=== PATIENT | female | born 1990 ===

== ENCOUNTER 2017-06-06 11:04 | Inpatient (IN) | payer OTHER ==
[2017-06-06 11:05] VITALS: BMI 17.5
--- NOTE | 2017-06-06 11:45 | C.PDOC ---
History Of Present Illness 26 yr old female referred to ER by Dr. Blackwell for new onset of fever for the past 2 days. Patient reports history Hodgkins Lymphoma, currently receiving treatment. Also reports of non productive cough. Denies chest pain, SOB, nausea , vomiting, weakness or numbness. REFERRED DR James BLACKWELL FOR NEW ONSET FEVER X 2 DAYS. HO HODGKINS LYMPHOMA, CURRENTLY RECEIVING TREATMENT. 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 NO OTHER ASSOC SX. EXAM CACHECTIC, MILD TOX. HEENT ANICTERIC ABD NEG LUNGS CTA B/L NO W/R/R CV RRR SINUS TACH REMAINDER NEG Time Seen by Provider: 06/06/17 11:29 Chief Complaint (Nursing): Medical Clearance History Per: Patient History/Exam Limitations: no limitations Onset/Duration Of Symptoms: Days (2) Current Symptoms Are (Timing): Still Present Sick Contacts (Context): None Past Medical History Reviewed: Historical Data, Nursing Documentation, Vital Signs Vital Signs: Last Vital Signs Temp 102.2 F H 06/06/17 12:40 Pulse 93 H 06/06/17 12:41 Resp 35 H 06/06/17 12:41 BP 88/54 L 06/06/17 12:41 Pulse Ox 99 06/06/17 13:25 - Medical History PMH: Asthma - [facility] Procedures DRAINAGE OF R PLEURAL CAV WITH DRAIN DEV, PERC APPROACH (05/06/17) EXCISION OF AORTIC LYMPHATIC, PERCUTANEOUS APPROACH, DIAGN (05/06/17) EXCISION OF RIGHT UPPER LOBE BRONCHUS, ENDO, DIAGN (05/06/17) INSERTION OF ENDOTRACHEAL AIRWAY INTO TRACHEA, VIA OPENING (05/06/17) RESPIRATORY VENTILATION, GREATER THAN 96 CONSECUTIVE HOURS (05/06/17) Family History: States: No Known Family Hx - Social History Hx Alcohol Use: No Hx Substance Use: No Review Of Systems Except As Marked, All Systems Reviewed And Found Negative. Constitutional: Positive for: Fever (Subjective) Cardiovascular: Negative for: Chest Pain Respiratory: Positive for: Cough (Non productive). Negative for: Shortness of Breath Gastrointestinal: Negative for: Nausea, Vomiting Neurological: Negative for: Weakness, Numbness Physical Exam - Physical Exam Appears: Toxic (Mild), Other ((+) C) Skin: Warm, Dry, No Rash Head: Atraumatic, Normacephalic Chest: Symmetrical, No Tenderness Cardiovascular: Rhythm Regular, No Murmur Respiratory: Normal Breath Sounds, No Rales, No Rhonchi, No Stridor, No Wheezing Gastrointestinal/Abdominal: Normal Exam, Soft, No Tenderness, No Guarding, No Rebound Extremity: Normal ROM, No Swelling Neurological/Psych: Oriented x3, Normal Speech, Normal Motor ED Course And Treatment - Laboratory Results Result Diagrams: 06/06/17 13:04 ECG: Interpreted By Me, Viewed By Me ECG Rhythm: Sinus Tachycardia Interpretation Of ECG: Nonspecific T wave changes. Rate From EC (BPM ) O2 Sat by Pulse Oximetry: 99 (RA) Pulse Ox Interpretation: Normal Progress - Re-Evaluation Re-evaluation Note: 1255 - Patient states she is usually hypotensive in high 80s, low 90s. 06/06/17 13:18 D/W DR James BLACKWELL: SP RECENT SALVAGE CHEMO TREATMENT DUE TO RECUR HODGKINS. 2UPRBS. , 1 BAG PLT. 06/06/17 13:24 D/W DR DICK WILL ADMIT - Data Reviewed Data Reviewed: Lab, Diagnostic imaging, EKG, Old records - Critical Care Citical Care: Excluding Proc Time Critical Care Time: 120 minutes - Continuity of Care Discussed patient case with:: Covering for PMD Medical Decision Making Medical Decision Making: PLAN: * CXR * EKG * VBG * CBC * CMP * Influenza * HCG * Urinalysis * Tylenol PO * Vancomycin IV * Zoysn IV * Sodium Chloride IV Disposition Counseled Patient/Family Regarding: Studies Performed, Diagnosis - Disposition Disposition: HOSPITALIZED Disposition Time: 13:24 Condition: STABLE Forms: [facility] ([place]se) - Clinical Impression Clinical Impression: Neutropenic fever, Symptomatic anemia - Scribe Statement The provider has reviewed the documentation as recorded by the Didier Escobar Provider Attestation: All medical record entries made by the Didier were at my direction and personally dictated by me. I have reviewed the chart and agree that the record accurately reflects my personal performance of the history, physical exam, medical decision making, and the department course for this patient. I have also personally directed, reviewed, and agree with the discharge instructions and disposition. Decision To Admit - Pt Status Changed To: Hospital Disposition Of: Inpatient - Admit Certification Admit to Inpatient:: After my assessment, the patient will require hospitalization for at least two midnights. This is because of the severity of symptoms shown, intensity of services needed, and/or the medical risk in this patient being treated as an outpatient. - InPatient: Physician Admission Certification:: SEE NOTE - . Bed Request Type: Telemetry Admitting Physician: Kong Dick Patient Diagnosis: Neutropenic fever, Symptomatic anemia
[2017-06-06] MEDS ORDERED: Piperacillin/Tazobact 3.375 gm 100 ML IV STA (11:47)
[2017-06-06] MEDS ORDERED: Vancomycin 1 GM 1 GM/250 ML BAG IV ONE (12:00)
[2017-06-06] MEDS ORDERED: Piperacillin/Tazobact 3.375 gm 100 ML IVPB ONE (12:20)
[2017-06-06] MEDS ORDERED: Vancomycin 1 GM 1 GM/250 ML BAG IVPB ONE (12:20)
[2017-06-06 13:10] LABS: BASO % 0.3 % (0.0-2.0); EOS % 0.2 % (0.0-4.0); HEMATOCRIT 19.6 % (34.0-47.0); LYMPH # 0.2 K/uL (1.0-4.3); LYMPH % 21.5 % (20.0-40.0); MEAN CELL VOLUME 73.1 fL (81.0-99.0); MEAN CORPUSCULAR HEMOGLOBIN 24.3 pg (27.0-31.0); MEAN CORPUSCULAR HGB CONC 33.2 g/dL (33.0-37.0); MEAN PLATELET VOLUME 12.4 fL (7.2-11.7); MONO # 0.4 K/uL (0.0-0.8); MONO % 46.1 % (0.0-10.0); NRBC % 0.2 % (0.0-2.0); RED CELL DISTRIBUTION WIDTH 20.2 % (11.5-14.5)
[2017-06-06 13:12] LABS: RBC URINE 3 /hpf (0-3); URINE BACTERIA RARE (<OCC); URINE BILIRUBIN NEGATIVE (NEGATIVE); URINE BLOOD 1+ (NEGATIVE); URINE COLOR Yellow (YELLOW); URINE GLUCOSE (UA) NORMAL (Normal); URINE KETONE NEGATIVE (NEGATIVE); URINE LEUKOCYTE ESTERASE NEG Leu/uL (Negative); URINE PROTEIN 2+ mg/dL (NEGATIVE); WBC URINE 3 /hpf (0-5)
[2017-06-06 13:14] LABS: WHITE BLOOD COUNT 0.8 K/uL (4.8-10.8)
[2017-06-06 13:26] LABS: INR 1.6
[2017-06-06 13:37] LABS: CHLORIDE 92 mmol/L (98-107); SODIUM 131 mmol/L (132-148)
[2017-06-06 13:38] LABS: POTASSIUM 3.3 mmol/L (3.6-5.2)
[2017-06-06 13:39] LABS: CARBON DIOXIDE 23 mmol/L (22-30); GFR AFRICAN-AMERICAN > 60
[2017-06-06 13:40] LABS: ALKALINE PHOSPHATASE 76 U/L (38-126); ALT/SGPT 49 U/L (9-52); AST/SGOT 29 U/L (14-36); BILIRUBIN,TOTAL 0.7 mg/dL (0.2-1.3); BLOOD UREA NITROGEN 7 mg/dL (7-17); CALCIUM 8.9 mg/dl (8.6-10.4); GLUCOSE,RANDOM 93 mg/dL (65-105); TOTAL PROTEIN 6.9 g/dL (6.3-8.3)
[2017-06-06 13:41] LABS: MAGNESIUM 1.4 mg/dL (1.6-2.3)
[2017-06-06 14:58] LABS: VENOUS BLOOD GAS PCO2 40 mmHg (40-60)
[2017-06-06] MEDS ORDERED: Sodium Chloride 0.9% 1,000 ML IV ONE (15:18)
[2017-06-06] MEDS ORDERED: Iohexol 300 100 ML IJ ONE (16:40)
[2017-06-06] MEDS ORDERED: Albuterol HFA 90 mcg/actuation (8 g) INH PRN (16:50)
[2017-06-06] MEDS ORDERED: Sodium Chloride 0.9% 500 ML IV ONE (17:07)
[2017-06-06] MEDS ORDERED: Potassium Chloride 20 mEq/15 ml LIQ UD PO ONE (17:09)
--- NOTE | 2017-06-06 17:23 | CP.PCM.HP ---
<Gerardo Holder - Last Filed: 06/06/17 18:08> History of Present Illness - History of Present Illness History of Present Illness: PGY-1 H&P for Dr. Richter CC: Fever This is a 26 year old female with PMHx Hodgkin's Lymphoma, asthma who presented complaining of fevers for the past 2 days. Patient denied any recent chills, chest pain, wheezing, abdominal pain, nausea, vomiting, constipation, diarrhea, dysuria. Patient stated that she was completely asymptomatic except for the fever. Patient does state though that she is short of breath once intermittently , and within the past hour she has started experiencing a dry cough. Patient denies rhinorrhea, post nasal drip. Patient does complain of sore throat from repeated prior intubation and extubations. Patient denies any feelings of weakness and states that she does ambulate intermittently. Per family, patient is otherwise eating well with much improved appetite from before. PMHx: Hodgkin's Lymphoma PSHx: Right sided chest Port placement at [facility] Allergies: NKDA Social: Denies tobacco, alcohol, drugs. Lives with extended family. [facility]: [facility] Heme/Onc: Dr. Blackwell Present on Admission - Present on Admission Any Indicators Present on Admission: No Review of Systems - Constitutional Constitutional: Fever. absent: Chills - EENT Eyes: absent: Change in Vision Ears: absent: Ear Pain Nose/Mouth/Throat: Sore Throat (attributes to prior intubations and extubations) . absent: Nasal Congestion, Post Nasal Drip - Cardiovascular Cardiovascular: absent: Chest Pain - Respiratory Respiratory: Cough (dry), Dyspnea (intermittent). absent: Wheezing - Gastrointestinal Gastrointestinal: absent: Abdominal Pain, Constipation, Diarrhea, Nausea, Vomiting - Genitourinary Genitourinary: absent: Dysuria - Musculoskeletal Musculoskeletal: absent: Back Pain - Integumentary Integumentary: absent: Rash - Neurological Neurological: absent: Dizziness, Numbness, Tingling, Weakness - Psychiatric Psychiatric: absent: Change in Appetite - Endocrine Endocrine: absent: Palpitations Past Patient History - Past Medical History & Family History Past Medical History?: Yes - Past Social History Smoking Status: Never Smoked - CARDIAC Hx Cardiac Disorders: No - PULMONARY Hx Asthma: Yes - NEUROLOGICAL Hx Neurological Disorder: No - HEENT Hx HEENT Problems: No - RENAL Hx Chronic Kidney Disease: No - ENDOCRINE/METABOLIC Hx Endocrine Disorders: No - HEMATOLOGICAL/ONCOLOGICAL Hx Blood Disorders: No - INTEGUMENTARY Hx Dermatological Problems: No - MUSCULOSKELETAL/RHEUMATOLOGICAL Hx Musculoskeletal Disorders: No - GASTROINTESTINAL Hx Gastrointestinal Disorders: No - GENITOURINARY/GYNECOLOGICAL Hx Genitourinary Disorders: No - PSYCHIATRIC Hx Substance Use: No - SURGICAL HISTORY Hx Vascular Access Device: Yes (port a cath) Other/Comment: Hodgkin's Lymphoma - ANESTHESIA Hx Anesthesia: No Meds Allergies/Adverse Reactions: Allergies Allergy/AdvReac Type Severity Reaction Status Date / Time No Known Allergies Allergy Verified 06/06/17 11:32 Physical Exam - Constitutional Appears: No Acute Distress, Cachectic, Chronically Ill - Head Exam Head Exam: ATRAUMATIC, NORMOCEPHALIC Additional comments: small pruritic blister on scalp - Eye Exam Eye Exam: EOMI, PERRL (Left pupil reactive to light, but right pupil non- reactive) Pupil Exam: Mydriatic (right eye) - ENT Exam ENT Exam: Mucous Membranes Dry, Normal External Ear Exam, Normal Oropharynx, TM' s Normal Bilaterally Additional comments: B/l nasal erythema Oropharynx unremarkable for exudates or erythema. - Neck Exam Neck exam: Positive for: Full Rom - Respiratory Exam Respiratory Exam: Decreased Breath Sounds (on left), Rhonchi Additional comments: Coarse breath sounds bilaterally - Cardiovascular Exam Cardiovascular Exam: Tachycardia, +S1, +S2. absent: Diastolic murmur, Systolic Murmur - GI/Abdominal Exam GI & Abdominal Exam: Normal Bowel Sounds, Soft. absent: Distended, Guarding, Tenderness - Back Exam Back exam: absent: CVA tenderness (L), CVA tenderness (R) - Neurological Exam Neurological exam: Alert, CN II-XII Intact, Oriented x3 Additional comments: Muscle strength 5/5 bilaterally in all extremities. No sensory deficits noted. - Psychiatric Exam Psychiatric exam: Normal Affect, Normal Mood - Skin Skin Exam: Dry, Intact, Warm Additional comments: Right sided chest wall port unremarkable in appearance. No sign of rashes. Two peripheral IV lines in place. Results - Vital Signs Recent Vital Signs: Last Vital Signs Temp 98.2 F 06/06/17 16:18 Pulse 117 H 06/06/17 16:18 Resp 38 H 06/06/17 16:18 BP 87/61 L 06/06/17 16:18 Pulse Ox 99 06/06/17 16:18 - Labs Result Diagrams: 06/06/17 13:04 06/06/17 13:15 Labs: Laboratory Results - last 24 hr 06/06/17 06/06/17 06/06/17 11:04 12:56 13:04 WBC 0.8 L* RBC 2.68 L Hgb 6.5 L* Hct 19.6 L MCV 73.1 L MCH 24.3 L MCHC 33.2 RDW 20.2 H Plt Count 13 L* MPV 12.4 H Neut % (Auto) 31.9 L Lymph % (Auto) 21.5 [place] % (Auto) 46.1 H Eos % (Auto) 0.2 Baso % (Auto) 0.3 Neut # 0.3 L Lymph # 0.2 L [place] # 0.4 Eos # 0.0 Baso # 0.0 PT INR APTT pO2 VBG pH VBG pCO2 VBG HCO3 VBG Total CO2 VBG O2 Sat (Calc) VBG Base Excess VBG Potassium Glucose Lactate Sodium Potassium Chloride Carbon Dioxide Anion Gap BUN Creatinine Est GFR ( Amer) Est GFR (Non-Af Amer) Random Glucose Calcium Phosphorus Magnesium Total Bilirubin AST ALT Alkaline Phosphatase Total Protein Albumin Globulin Albumin/Globulin Ratio Venous Blood Potassium Urine Color Yellow Urine Clarity Hazy Urine pH 6.0 Ur Specific [place] 1.016 Urine Protein 2+ H Urine Glucose (UA) Normal Urine Ketones Negative Urine Blood 1+ H Urine Nitrate Negative Urine Bilirubin Negative Urine Urobilinogen 2.0 H Ur Leukocyte Esterase Neg Urine WBC (Auto) 3 Urine RBC (Auto) 3 Ur Squamous Epith Cells 6 H Urine Bacteria Rare Urine HCG, Qual Negative Influenza Typ A,B (EIA) Negative for flu a/b Blood Type Antibody Screen 06/06/17 06/06/17 06/06/17 13:04 13:15 14:01 WBC RBC Hgb Hct MCV MCH MCHC RDW Plt Count MPV Neut % (Auto) Lymph % (Auto) [place] % (Auto) Eos % (Auto) Baso % (Auto) Neut # Lymph # [place] # Eos # Baso # PT 18.2 H INR 1.6 APTT 30 pO2 VBG pH VBG pCO2 VBG HCO3 VBG Total CO2 VBG O2 Sat (Calc) VBG Base Excess VBG Potassium Glucose Lactate Sodium 131 L Potassium 3.3 L Chloride 92 L Carbon Dioxide 23 Anion Gap 19 BUN 7 Creatinine 0.4 L Est GFR ( Amer) > 60 Est GFR (Non-Af Amer) > 60 Random Glucose 93 Calcium 8.9 Phosphorus 3.0 Magnesium 1.4 L Total Bilirubin 0.7 AST 29 ALT 49 Alkaline Phosphatase 76 Total Protein 6.9 Albumin 3.4 L Globulin 3.5 Albumin/Globulin Ratio 1.0 Venous Blood Potassium Urine Color Urine Clarity Urine pH Ur Specific [place] Urine Protein Urine Glucose (UA) Urine Ketones Urine Blood Urine Nitrate Urine Bilirubin Urine Urobilinogen Ur Leukocyte Esterase Urine WBC (Auto) Urine RBC (Auto) Ur Squamous Epith Cells Urine Bacteria Urine HCG, Qual Influenza Typ A,B (EIA) Blood Type AB POSITIVE Antibody Screen Negative 06/06/17 14:29 WBC RBC Hgb Hct MCV MCH MCHC RDW Plt Count MPV Neut % (Auto) Lymph % (Auto) [place] % (Auto) Eos % (Auto) Baso % (Auto) Neut # Lymph # [place] # Eos # Baso # PT INR APTT pO2 24 L VBG pH 7.40 VBG pCO2 40 VBG HCO3 23.4 VBG Total CO2 26.0 VBG O2 Sat (Calc) 43.6 VBG Base Excess 0.0 VBG Potassium 3.0 L Glucose 91 Lactate 1.1 Sodium 132.0 Potassium Chloride 100.0 Carbon Dioxide Anion Gap BUN Creatinine Est GFR ( Amer) Est GFR (Non-Af Amer) Random Glucose Calcium Phosphorus Magnesium Total Bilirubin AST ALT Alkaline Phosphatase Total Protein Albumin Globulin Albumin/Globulin Ratio Venous Blood Potassium 3.0 L Urine Color Urine Clarity Urine pH Ur Specific [place] Urine Protein Urine Glucose (UA) Urine Ketones Urine Blood Urine Nitrate Urine Bilirubin Urine Urobilinogen Ur Leukocyte Esterase Urine WBC (Auto) Urine RBC (Auto) Ur Squamous Epith Cells Urine Bacteria Urine HCG, Qual Influenza Typ A,B (EIA) Blood Type Antibody Screen Assessment & Plan - Assessment and Plan (Free Text) Plan: Neutropenic Fever Dr. Blackwell heme/onc consulted, help appreciated. Dr. Salazar ID consulted, help appreciated. Patient given one dose of Granix in the ED. Tmax 102.2 but was afebrile during encounter. Patient received 1300mL NS bolus in ED. Patient given an additional of 1.5 liters of NS bolus. Maintenance fluids: NS 100cc/hr F/u CTA chest F/u Urine Legionella F/u Mycoplasma F/u rapid flu F/u rapid strep test Patient given Vancomycin and Zosyn in ED. Merrem 1 gm IV Q8H Vancomycin 500 mg IV daily starting tomorrow Anemia Dr. Blackwell heme/onc consulted, help appreciated. Dr. Blackwell put in for 2 units of pRBCs as well as 1 unit of platelets F/u CBC History of Hodgkin's Lymphoma Dr. Blackwell heme/onc consulted, help appreciated. History of Asthma Albuterol Q6 prn dyspnea Mucinex 600 mg PO BID Promethazine with codeine 5 ml PO Q4H prn Dr. Yanely cardoso consulted, help appreciated Prophylactic Measures Contraindication for VTE prophylaxis due to thrombocytopenia AM labs PT/OT for weakness Magnesium and potassium repleted. <Miracle Richter V - Last Filed: 06/06/17 23:40> Results - Vital Signs Recent Vital Signs: Last Vital Signs Temp 98.3 F 06/06/17 23:27 Pulse 121 H 06/06/17 23:27 Resp 20 06/06/17 23:27 BP 95/64 L 06/06/17 23:27 Pulse Ox 96 06/06/17 23:27 - Labs Result Diagrams: 06/06/17 13:04 06/06/17 13:15 Labs: Laboratory Results - last 24 hr 06/06/17 06/06/17 06/06/17 11:04 12:56 13:04 WBC 0.8 L* RBC 2.68 L Hgb 6.5 L* Hct 19.6 L MCV 73.1 L MCH 24.3 L MCHC 33.2 RDW 20.2 H Plt Count 13 L* MPV 12.4 H Neut % (Auto) 31.9 L Lymph % (Auto) 21.5 [place] % (Auto) 46.1 H Eos % (Auto) 0.2 Baso % (Auto) 0.3 Neut # 0.3 L Lymph # 0.2 L [place] # 0.4 Eos # 0.0 Baso # 0.0 PT INR APTT pO2 VBG pH VBG pCO2 VBG HCO3 VBG Total CO2 VBG O2 Sat (Calc) VBG Base Excess VBG Potassium Glucose Lactate Sodium Potassium Chloride Carbon Dioxide Anion Gap BUN Creatinine Est GFR ( Amer) Est GFR (Non-Af Amer) Random Glucose Calcium Phosphorus Magnesium Total Bilirubin AST ALT Alkaline Phosphatase Total Protein Albumin Globulin Albumin/Globulin Ratio Procalcitonin Venous Blood Potassium Urine Color Yellow Urine Clarity Hazy Urine pH 6.0 Ur Specific [place] 1.016 Urine Protein 2+ H Urine Glucose (UA) Normal Urine Ketones Negative Urine Blood 1+ H Urine Nitrate Negative Urine Bilirubin Negative Urine Urobilinogen 2.0 H Ur Leukocyte Esterase Neg Urine WBC (Auto) 3 Urine RBC (Auto) 3 Ur Squamous Epith Cells 6 H Urine Bacteria Rare Urine HCG, Qual Negative Influenza Typ A,B (EIA) Negative for flu a/b Mycoplasma pneumon IgM Grp A Beta Strep Ag Blood Type Antibody Screen 06/06/17 06/06/17 06/06/17 13:04 13:15 14:01 WBC RBC Hgb Hct MCV MCH MCHC RDW Plt Count MPV Neut % (Auto) Lymph % (Auto) [place] % (Auto) Eos % (Auto) Baso % (Auto) Neut # Lymph # [place] # Eos # Baso # PT 18.2 H INR 1.6 APTT 30 pO2 VBG pH VBG pCO2 VBG HCO3 VBG Total CO2 VBG O2 Sat (Calc) VBG Base Excess VBG Potassium Glucose Lactate Sodium 131 L Potassium 3.3 L Chloride 92 L Carbon Dioxide 23 Anion Gap 19 BUN 7 Creatinine 0.4 L Est GFR ( Amer) > 60 Est GFR (Non-Af Amer) > 60 Random Glucose 93 Calcium 8.9 Phosphorus 3.0 Magnesium 1.4 L Total Bilirubin 0.7 AST 29 ALT 49 Alkaline Phosphatase 76 Total Protein 6.9 Albumin 3.4 L Globulin 3.5 Albumin/Globulin Ratio 1.0 Procalcitonin Venous Blood Potassium Urine Color Urine Clarity Urine pH Ur Specific [place] Urine Protein Urine Glucose (UA) Urine Ketones Urine Blood Urine Nitrate Urine Bilirubin Urine Urobilinogen Ur Leukocyte Esterase Urine WBC (Auto) Urine RBC (Auto) Ur Squamous Epith Cells Urine Bacteria Urine HCG, Qual Influenza Typ A,B (EIA) Mycoplasma pneumon IgM Grp A Beta Strep Ag Blood Type AB POSITIVE Antibody Screen Negative 06/06/17 06/06/17 06/06/17 14:29 16:28 17:39 WBC RBC Hgb Hct MCV MCH MCHC RDW Plt Count MPV Neut % (Auto) Lymph % (Auto) [place] % (Auto) Eos % (Auto) Baso % (Auto) Neut # Lymph # [place] # Eos # Baso # PT INR APTT pO2 24 L VBG pH 7.40 VBG pCO2 40 VBG HCO3 23.4 VBG Total CO2 26.0 VBG O2 Sat (Calc) 43.6 VBG Base Excess 0.0 VBG Potassium 3.0 L Glucose 91 Lactate 1.1 Sodium 132.0 Potassium Chloride 100.0 Carbon Dioxide Anion Gap BUN Creatinine Est GFR ( Amer) Est GFR (Non-Af Amer) Random Glucose Calcium Phosphorus Magnesium Total Bilirubin AST ALT Alkaline Phosphatase Total Protein Albumin Globulin Albumin/Globulin Ratio Procalcitonin 3.33 H Venous Blood Potassium 3.0 L Urine Color Urine Clarity Urine pH Ur Specific [place] Urine Protein Urine Glucose (UA) Urine Ketones Urine Blood Urine Nitrate Urine Bilirubin Urine Urobilinogen Ur Leukocyte Esterase Urine WBC (Auto) Urine RBC (Auto) Ur Squamous Epith Cells Urine Bacteria Urine HCG, Qual Influenza Typ A,B (EIA) Mycoplasma pneumon IgM Negative Grp A Beta Strep Ag Blood Type Antibody Screen 06/06/17 17:47 WBC RBC Hgb Hct MCV MCH MCHC RDW Plt Count MPV Neut % (Auto) Lymph % (Auto) [place] % (Auto) Eos % (Auto) Baso % (Auto) Neut # Lymph # [place] # Eos # Baso # PT INR APTT pO2 VBG pH VBG pCO2 VBG HCO3 VBG Total CO2 VBG O2 Sat (Calc) VBG Base Excess VBG Potassium Glucose Lactate Sodium Potassium Chloride Carbon Dioxide Anion Gap BUN Creatinine Est GFR ( Amer) Est GFR (Non-Af Amer) Random Glucose Calcium Phosphorus Magnesium Total Bilirubin AST ALT Alkaline Phosphatase Total Protein Albumin Globulin Albumin/Globulin Ratio Procalcitonin Venous Blood Potassium Urine Color Urine Clarity Urine pH Ur Specific [place] Urine Protein Urine Glucose (UA) Urine Ketones Urine Blood Urine Nitrate Urine Bilirubin Urine Urobilinogen Ur Leukocyte Esterase Urine WBC (Auto) Urine RBC (Auto) Ur Squamous Epith Cells Urine Bacteria Urine HCG, Qual Influenza Typ A,B (EIA) Mycoplasma pneumon IgM Grp A Beta Strep Ag Negative Blood Type Antibody Screen Attending/Attestation - Attestation I have personally seen and examined this patient.: Yes I have fully participated in the care of the patient.: Yes I have reviewed all pertinent clinical information: Yes
[2017-06-06] MEDS ORDERED: Potassium Chloride 20 mEq/15 ml LIQ UD ONE (18:26)
[2017-06-06] MEDS ORDERED: Magnesium Sulfate 1 gm in D5W 1 GM/100 ML BAG IVPB ONE ×2 (18:26→19:38)
[2017-06-06] MEDS: Sodium Chloride 0.9% 1,000 ML IV SCH (18:38)
[2017-06-06] MEDS: Magnesium Sulfate 1 gm in D5W 1 GM/100 ML BAG IVPB SCH ×2 (18:43→19:39)
--- NOTE | 2017-06-06 18:48 | RAD ---
HISTORY: FEVER HO HODGKINS LYMPHOMA COMPARISON: Chest x-ray performed 05/28/17 TECHNIQUE: Chest, one view. FINDINGS: LUNGS: Right-sided MediPort extends expected location of the cavoatrial junction. Examination limited by patient obliquity. Patchy opacity seen adjacent to the MediPort hub, possibly atelectasis or consolidation ; nodule cannot be excluded. Right hilar/perihilar opacity may also reflect infiltrate. Mild left basilar atelectasis. Please note that chest x-ray has limited sensitivity for the detection of pulmonary masses. PLEURA: Blunting of the bilateral costophrenic angles may reflect tiny pleural effusions. No definite pneumothorax . CARDIOVASCULAR: Mild cardiomegaly. OSSEOUS STRUCTURES: No acute osseous abnormality identified. VISUALIZED UPPER ABDOMEN: Unremarkable. OTHER FINDINGS: None. IMPRESSION: Right-sided MediPort extends expected location of the cavoatrial junction. Patchy opacity seen adjacent to the MediPort hub, possibly atelectasis or consolidation ; nodule cannot be excluded. Right hilar/perihilar opacity may also reflect infiltrate. Mild left basilar atelectasis. Probable bilateral tiny pleural effusions. Mild cardiomegaly.
[2017-06-06] MEDS: guaiFENesin 600 mg ER Tab PO SCH (18:53)
[2017-06-06] MEDS: Meropenem 1 GM in Sodium Chloride 0.9% 100 ML IVPB SCH (18:53)
[2017-06-06] MEDS ORDERED: Vancomycin 1 gm/NS 200 ml 1 GM/200 ML BAG IVPB SCH (19:00)
--- NOTE | 2017-06-06 20:50 | CP.PCM.CON ---
History of Present Illness - History of Present Illness History of Present Illness: CC: Fever This is a 26 year old female with PMHx Hodgkin's Lymphoma, asthma came to ED with fever for 4 days. pt went to see oncologist and she was sent home Patient does state though that she is short of breath once intermittently, and within the past hour she has started experiencing a dry cough. Patient denies rhinorrhea, post nasal drip. Patient does complain of sore throat from repeated prior intubation and extubations. Patient denies any feelings of weakness and states that she does ambulate intermittently. Per family, patient is otherwise eating well with much improved appetite from before. cough with clear mucous noted fever and chills pt has husky voice no abd pain no diarrhea no vomiting PMHx: Hodgkin's Lymphoma PSHx: Right sided chest Port placement at [facility] Allergies: NKDA Social: Denies tobacco, alcohol, drugs. Lives with extended family. PMD: [facility] Heme/Onc: Dr. Blackwell ROM: noted not in distress o/e: chest good air entry, wheezing noted to rt lung regular hs abd soft labs noted henderson cytopenia CXR- left lung base infitrase possible agree with antibiotic CT chest oncology f/u Past Patient History - Past Medical History & Family History Past Medical History?: Yes - Past Social History Smoking Status: Never Smoked - CARDIAC Hx Cardiac Disorders: No - PULMONARY Hx Asthma: Yes - NEUROLOGICAL Hx Neurological Disorder: No - HEENT Hx HEENT Problems: No - RENAL Hx Chronic Kidney Disease: No - ENDOCRINE/METABOLIC Hx Endocrine Disorders: No - HEMATOLOGICAL/ONCOLOGICAL Hx Blood Disorders: No - INTEGUMENTARY Hx Dermatological Problems: No - MUSCULOSKELETAL/RHEUMATOLOGICAL Hx Musculoskeletal Disorders: No - GASTROINTESTINAL Hx Gastrointestinal Disorders: No - GENITOURINARY/GYNECOLOGICAL Hx Genitourinary Disorders: No - PSYCHIATRIC Hx Substance Use: No - SURGICAL HISTORY Hx Vascular Access Device: Yes (port a cath) Other/Comment: Hodgkin's Lymphoma - ANESTHESIA Hx Anesthesia: No Meds Allergies/Adverse Reactions: Allergies Allergy/AdvReac Type Severity Reaction Status Date / Time No Known Allergies Allergy Verified 06/06/17 11:32 - Medications Medications: Current Medications Acetaminophen (Tylenol 325mg Tab) 975 mg PO ONCE PRN PRN Reason: Fever >100.4 F Last Admin: 06/06/17 12:40 Dose: 975 mg Albuterol (Ventolin Hfa 90 Mcg/Actuation (8 G)) 1 puff INH RQ6 PRN PRN Reason: Shortness of Breath Guaifenesin (Mucinex La) 600 mg PO BID [facility] Last Admin: 06/06/17 18:53 Dose: 600 mg Sodium Chloride (Sodium Chloride 0.9%) 1,000 mls @ 100 mls/hr IV .Q10H [facility] Last Admin: 06/06/17 18:38 Dose: 100 mls/hr Meropenem 1 gm/ Sodium (Chloride) 100 mls @ 100 mls/hr IVPB Q8H [facility] Last Admin: 06/06/17 18:53 Dose: 100 mls/hr Vancomycin/Sodium Chloride (Vancocin) 1 gm in 200 mls @ 66.667 mls/hr IVPB Q12H [facility] Stop: 06/12/17 01:01 Promethazine HCl/Codeine (Phenergan/Codeine Oral Syrup) 5 ml PO Q4 PRN PRN Reason: Cough Results - Vital Signs Recent Vital Signs: Last Vital Signs Temp 98.2 F 06/06/17 20:17 Pulse 107 H 06/06/17 20:17 Resp 30 H 06/06/17 20:17 BP 93/64 L 06/06/17 20:17 Pulse Ox 100 06/06/17 20:17 - Labs Result Diagrams: 06/06/17 13:04 06/06/17 13:15 Labs: Laboratory Results - last 24 hr 06/06/17 06/06/17 06/06/17 11:04 12:56 13:04 WBC 0.8 L* RBC 2.68 L Hgb 6.5 L* Hct 19.6 L MCV 73.1 L MCH 24.3 L MCHC 33.2 RDW 20.2 H Plt Count 13 L* MPV 12.4 H Neut % (Auto) 31.9 L Lymph % (Auto) 21.5 Harney % (Auto) 46.1 H Eos % (Auto) 0.2 Baso % (Auto) 0.3 Neut # 0.3 L Lymph # 0.2 L Harney # 0.4 Eos # 0.0 Baso # 0.0 PT INR APTT pO2 VBG pH VBG pCO2 VBG HCO3 VBG Total CO2 VBG O2 Sat (Calc) VBG Base Excess VBG Potassium Glucose Lactate Sodium Potassium Chloride Carbon Dioxide Anion Gap BUN Creatinine Est GFR ( Amer) Est GFR (Non-Af Amer) Random Glucose Calcium Phosphorus Magnesium Total Bilirubin AST ALT Alkaline Phosphatase Total Protein Albumin Globulin Albumin/Globulin Ratio Procalcitonin Venous Blood Potassium Urine Color Yellow Urine Clarity Hazy Urine pH 6.0 Ur Specific [place]on 1.016 Urine Protein 2+ H Urine Glucose (UA) Normal Urine Ketones Negative Urine Blood 1+ H Urine Nitrate Negative Urine Bilirubin Negative Urine Urobilinogen 2.0 H Ur Leukocyte Esterase Neg Urine WBC (Auto) 3 Urine RBC (Auto) 3 Ur Squamous Epith Cells 6 H Urine Bacteria Rare Urine HCG, Qual Negative Influenza Typ A,B (EIA) Negative for flu a/b Mycoplasma pneumon IgM Grp A Beta Strep Ag Blood Type Antibody Screen 06/06/17 06/06/17 06/06/17 13:04 13:15 14:01 WBC RBC Hgb Hct MCV MCH MCHC RDW Plt Count MPV Neut % (Auto) Lymph % (Auto) Harney % (Auto) Eos % (Auto) Baso % (Auto) Neut # Lymph # Harney # Eos # Baso # PT 18.2 H INR 1.6 APTT 30 pO2 VBG pH VBG pCO2 VBG HCO3 VBG Total CO2 VBG O2 Sat (Calc) VBG Base Excess VBG Potassium Glucose Lactate Sodium 131 L Potassium 3.3 L Chloride 92 L Carbon Dioxide 23 Anion Gap 19 BUN 7 Creatinine 0.4 L Est GFR ( Amer) > 60 Est GFR (Non-Af Amer) > 60 Random Glucose 93 Calcium 8.9 Phosphorus 3.0 Magnesium 1.4 L Total Bilirubin 0.7 AST 29 ALT 49 Alkaline Phosphatase 76 Total Protein 6.9 Albumin 3.4 L Globulin 3.5 Albumin/Globulin Ratio 1.0 Procalcitonin Venous Blood Potassium Urine Color Urine Clarity Urine pH Ur Specific [place] Urine Protein Urine Glucose (UA) Urine Ketones Urine Blood Urine Nitrate Urine Bilirubin Urine Urobilinogen Ur Leukocyte Esterase Urine WBC (Auto) Urine RBC (Auto) Ur Squamous Epith Cells Urine Bacteria Urine HCG, Qual Influenza Typ A,B (EIA) Mycoplasma pneumon IgM Grp A Beta Strep Ag Blood Type AB POSITIVE Antibody Screen Negative 06/06/17 06/06/17 06/06/17 14:29 16:28 17:39 WBC RBC Hgb Hct MCV MCH MCHC RDW Plt Count MPV Neut % (Auto) Lymph % (Auto) Harney % (Auto) Eos % (Auto) Baso % (Auto) Neut # Lymph # Harney # Eos # Baso # PT INR APTT pO2 24 L VBG pH 7.40 VBG pCO2 40 VBG HCO3 23.4 VBG Total CO2 26.0 VBG O2 Sat (Calc) 43.6 VBG Base Excess 0.0 VBG Potassium 3.0 L Glucose 91 Lactate 1.1 Sodium 132.0 Potassium Chloride 100.0 Carbon Dioxide Anion Gap BUN Creatinine Est GFR ( Amer) Est GFR (Non-Af Amer) Random Glucose Calcium Phosphorus Magnesium Total Bilirubin AST ALT Alkaline Phosphatase Total Protein Albumin Globulin Albumin/Globulin Ratio Procalcitonin 3.33 H Venous Blood Potassium 3.0 L Urine Color Urine Clarity Urine pH Ur Specific [place] Urine Protein Urine Glucose (UA) Urine Ketones Urine Blood Urine Nitrate Urine Bilirubin Urine Urobilinogen Ur Leukocyte Esterase Urine WBC (Auto) Urine RBC (Auto) Ur Squamous Epith Cells Urine Bacteria Urine HCG, Qual Influenza Typ A,B (EIA) Mycoplasma pneumon IgM Negative Grp A Beta Strep Ag Blood Type Antibody Screen 06/06/17 17:47 WBC RBC Hgb Hct MCV MCH MCHC RDW Plt Count MPV Neut % (Auto) Lymph % (Auto) Harney % (Auto) Eos % (Auto) Baso % (Auto) Neut # Lymph # Harney # Eos # Baso # PT INR APTT pO2 VBG pH VBG pCO2 VBG HCO3 VBG Total CO2 VBG O2 Sat (Calc) VBG Base Excess VBG Potassium Glucose Lactate Sodium Potassium Chloride Carbon Dioxide Anion Gap BUN Creatinine Est GFR ( Amer) Est GFR (Non-Af Amer) Random Glucose Calcium Phosphorus Magnesium Total Bilirubin AST ALT Alkaline Phosphatase Total Protein Albumin Globulin Albumin/Globulin Ratio Procalcitonin Venous Blood Potassium Urine Color Urine Clarity Urine pH Ur Specific [place] Urine Protein Urine Glucose (UA) Urine Ketones Urine Blood Urine Nitrate Urine Bilirubin Urine Urobilinogen Ur Leukocyte Esterase Urine WBC (Auto) Urine RBC (Auto) Ur Squamous Epith Cells Urine Bacteria Urine HCG, Qual Influenza Typ A,B (EIA) Mycoplasma pneumon IgM Grp A Beta Strep Ag Negative Blood Type Antibody Screen
--- NOTE | 2017-06-07 00:02 | CT ---
EXAM: CT Angiography Chest With Intravenous Contrast EXAM DATE/TIME: 06/06/2017 4:14 PM CLINICAL HISTORY: 26 years old, female; Signs and symptoms; Shortness of breath; Additional info: HX of lymphoma. R/O pe. R/O pneumonia TECHNIQUE: Axial computed tomographic angiography images of the chest with intravenous contrast using pulmonary embolism protocol. All CT scans at this facility use one or more dose reduction techniques, viz.: automated exposure control; ma/kV adjustment per patient size (including targeted exams where dose is matched to indication; i.e. head); or iterative reconstruction technique. MIP reconstructed images were created and reviewed. Coronal and sagittal reformatted images were created and reviewed. CONTRAST: 100 mL of visipaque 320 administered intravenously. COMPARISON: Prior CT chest of 05/07/2017 FINDINGS: PULMONARY ARTERIES: Contrast opacification of the pulmonary arteries is adequate, and there are no filling defects seen to suggest pulmonary embolism. AORTA: No evidence of aortic dissection. LUNGS: Compared to the prior study, significant interval improvement in the previously seen dense consolidative process in the right lower lobe. There are persistent areas of dense consolidation in the right upper lobe medially and in the right lower lobe superomedially. Since the prior study, there has been development multiple small, rounded, air-filled areas within these areas of consolidation, suspicious for development of multifocal cavitation. Grossly stable appearance of a large cavitary lesion in the right upper lobe, which measures 7.5 x 5 cm maximally, and contains an air-fluid level. Persistence of of diffuse narrowing of the airways on the right by the masslike soft tissue in the right hilum. Stable appearance of a 1.4 cm nodular density in the left upper lobe medially. Stable appearance of scarring/fibrosis in the right lung laterally. Probable diffuse atelectatic changes in the lungs bilaterally. No evidence of diffuse pulmonary vascular congestion. PLEURAL SPACE: Persistence of a moderate-sized right pleural effusion, which appears partially loculated. This is mildly decreased in size since the prior exam. No pneumothorax is seen. HEART: Moderate amount of fluid is seen in the pericardium, mainly in the superior pericardial recess which does not appear circumferential. Heart appears mildly enlarged. BONES/JOINTS: No acute bony abnormality identified. SOFT TISSUES: No acute abnormality of the visualized soft tissues seen. LYMPH NODES: Grossly stable appearance of extensive, abnormal, masslike infiltrative soft tissue in the mediastinum and in the hilar regions bilaterally, greater on the right, suspicious for diffuse, infiltrative lymphadenopathy. UPPER ABDOMEN: Left diaphragm is moderately elevated. TUBES, LINES AND DEVICES: Right Mediport catheter in place, which terminates in the right atrium. IMPRESSION: - Compared to a prior CT of 05/07/2017, development of multifocal areas of cavitation in the right lung, located in areas of dense consolidation, suspicious for a cavitary pneumonia. Fungal or mycobacterial pneumonia could have this appearance. The overall degree of consolidation in the right lung appears decreased, however. - Otherwise, no obvious new, acute findings. No evidence of pulmonary embolism. - Stable appearance of a large 7 cm cavitary lesion in the right upper lobe. - Grossly stable appearance of extensive, infiltrative soft tissue in the mediastinum and june bilaterally, greater on the right, suspicious for infiltrative lymphadenopathy. This causes narrowing of the airways on the right. - Moderate right pleural effusion, mildly decreased in size. - See above for remaining findings.
[2017-06-07] MEDS: Sodium Chloride 0.9% 1,000 ML IV SCH ×3 (01:30→21:26)
[2017-06-07] MEDS: Meropenem 1 GM in Sodium Chloride 0.9% 100 ML IVPB SCH ×3 (02:11→23:37)
--- NOTE | 2017-06-07 07:43 | CP.PCM.PN ---
<Shanda Waggoner - Last Filed: 06/07/17 11:27> Subjective - Date & Time of Evaluation Date of Evaluation: 06/07/17 Time of Evaluation: 06:00 - Subjective Subjective: Medicine Note for Dr. Richter Patient seen and examined at bedside. Patient reported she does not feel febrile. She reports she feels better. She has been coughing copious amount of saliva and sputum, patient was given suction. She admitted to heart palpitations , sinus tachy 100-120s on telemetry. Denied fever,chills, headache, chest pain, SOB, abdominal pain, n/v/d/c, or urinary symptoms. Objective - Vital Signs/Intake and Output Vital Signs (last 24 hours): Temp Pulse Resp BP Pulse Ox 98.3 F 145 H 20 107/65 95 06/06/17 23:27 06/07/17 05:00 06/07/17 05:00 06/07/17 05:00 06/07/17 05:00 Intake and Output: 06/07/17 06/07/17 06:59 18:59 Intake Total 1000 Balance 1000 - Medications Medications: Current Medications Acetaminophen (Tylenol 325mg Tab) 975 mg PO ONCE PRN PRN Reason: Fever >100.4 F Last Admin: 06/06/17 12:40 Dose: 975 mg Albuterol (Ventolin Hfa 90 Mcg/Actuation (8 G)) 1 puff INH RQ6 PRN PRN Reason: Shortness of Breath Guaifenesin (Mucinex La) 600 mg PO BID [facility] Last Admin: 06/06/17 18:53 Dose: 600 mg Sodium Chloride (Sodium Chloride 0.9%) 1,000 mls @ 100 mls/hr IV .Q10H [facility] Last Admin: 06/07/17 01:30 Dose: Not Given Meropenem 1 gm/ Sodium (Chloride) 100 mls @ 100 mls/hr IVPB Q8H [facility] Last Admin: 06/07/17 02:11 Dose: 100 mls/hr Vancomycin/Sodium Chloride (Vancocin) 1 gm in 200 mls @ 66.667 mls/hr IVPB Q12H [facility] Stop: 06/12/17 01:01 Last Admin: 06/07/17 00:00 Dose: 66.667 mls/hr Promethazine HCl/Codeine (Phenergan/Codeine Oral Syrup) 5 ml PO Q4 PRN PRN Reason: Cough - Labs Labs: 06/06/17 13:04 06/06/17 13:15 PT 18.2 SECONDS (9.7-12.2) H 06/06/17 13:04 INR 1.6 06/06/17 13:04 APTT 30 SECONDS (21-34) 06/06/17 13:04 - Constitutional Appears: Toxic, No Acute Distress, Cachectic, Chronically Ill - Head Exam Head Exam: NORMAL INSPECTION, NORMOCEPHALIC - Eye Exam Eye Exam: EOMI, Normal appearance, PERRL - ENT Exam ENT Exam: Mucous Membranes Dry - Respiratory Exam Respiratory Exam: Decreased Breath Sounds, Rhonchi, Wheezes - Cardiovascular Exam Cardiovascular Exam: Tachycardia - GI/Abdominal Exam GI & Abdominal Exam: Soft, Normal Bowel Sounds. absent: Distended, Tenderness - Extremities Exam Extremities Exam: Normal Inspection. absent: Pedal Edema, Tenderness - Neurological Exam Neurological Exam: Alert, Awake, Oriented x3 - Psychiatric Exam Psychiatric exam: Normal Affect, Normal Mood - Skin Skin Exam: Dry, Intact, Normal Color, Warm Assessment and Plan - Assessment and Plan (Free Text) Plan: Neutropenic Fever Tmax 102.2, currently afebrile Dr. Rishi taylor/onc consulted, help appreciated. Dr. Salazar ID consulted, help appreciated. Patient given one dose of Granix in the ED.Patient received 1300mL NS bolus in ED.Patient given an additional of 1.5 liters of NS bolus. CXR (06/06): Right-sided MediPort extends expected location of the cavoatrial junction.Patchy opacity seen adjacent to the MediPort hub, possibly atelectasis or consolidation ; nodule cannot be excluded. Right hilar/perihilar opacity may also reflect infiltrate. Mild left basilar atelectasis.Probable bilateral tiny pleural effusions. Mild cardiomegaly. CTA chest (06/06): No pulmonary Embolism noted. Compared to a prior CT of 2016, development of multifocal areas of cavitation in the right lung, located in areas of dense consolidation, suspicious for a cavitary pneumonia. Fungal or mycobacterial pneumonia could have this appearance. The overall degree of consolidation in the right lung appears decreased, however. - Otherwise, no obvious new, acute findings. No evidence of pulmonary embolism. - Stable appearance of a large 7 cm cavitary lesion in the right upper lobe. - Grossly stable appearance of extensive, infiltrative soft tissue in the mediastinum and june bilaterally, greater on the right, suspicious for infiltrative lymphadenopathy. This causes narrowing of the airways on the right. - Moderate right pleural effusion, mildly decreased in size. Procal: 3.33 Mycoplasma, rapid flu, rapid strep test - NEGATIVE F/u Urine Legionella Started on: * Maintenance fluids: NS 100cc/hr * Merrem 1 gm IV Q8H * Vancomycin 500 mg IV daily * Tylenol PRN Hx of Hodgkin's Lymphoma with Right Chest Port * Heme-Onc: James Blackwell on the case Previous records from prior admission: * Per heme-onc, need tissue biopsy for re-diagnosis if this is the same cancer, previously diagnosed for 2013-->f/u IR lymph nody biopsy (05/18/17)-->Pathology--> classical Hodgkin's Lymphoma (Discussed with Dr. Welch, pathology) from lymph node biopsy; discussed with ICU and Heme-Onc setup for inpatient chemotherapy-->patient start chemotherapy 05/24 on the ICE Regimen * Patient is currently on ICE Regimen for classical Hodgkin's lymphoma since ; on prophylaxis for tumor lysis; will need outpatient bone marrow transplant evaluation. Completed 1st week of chemotherapy. * Chemotherapy regimen (hand written chemo orders in the chart) * Etoposide 150mg IV X1 (05/24-05/26) * Carboplatin 700mg X1 (05/25) * Ifosfomide 7500mg X1 (05/25) * Mesna 7500mg IV (05/25) Prior documentation: * Per [facility] documentation: untreated Hodgkin lymphoma w new mass on the left side of the neck for advancing Hodgkin lymphoma; Chemo with ABVD in 2014 advised to f/u heme-onc upon discharge; she has diagnosed with hodgkins lymphoma in 02/2014 but had declined any treatment at time of biopsy, but in 2014 had chemo; her prior echo without effusion and normal EF (06/2015) included in the paper documentation * Hodgkin disease, modular sclerosing type stage II (per 02/18/14 note) * Unclear regarding s/p 2014 regarding chemo/onc; patient has 6 month old child ; unclear [phone] regarding management onc; spoke with patient's cousin Ricardo and he was no aware regarding this time frame; and status disrupting chemo? Patient has 6 month Patient's parents are in [place]. She lives with an unspecified cousin. Her male cousin Ricardo Ellis [phone] was present at the time of my cousin and at present is the primary decision maker for patient. He signed a records release form for [facility] and this was placed in the front of patient chart. Documentation from [facility] is in front of the chart. (hx of biopsy, hospitalization in 2014, and prior echo noted). There is no living will nor advance directive included in the documentation per review Cousin Ricardo Ellis has been instructed by my colleague to find out if patient has any medical records at her residence as well as if there is a Living Will/Advance Directive and bring these things in for our review. Anemia * Likely Secondary to anemia of chronic disease HL, chemotherapy * Iron Studies 05/08/17 showed Total Iron low at 20, TIBC normal at 382, and % Sat low at 5 * Patient transfused 1 unit PRBC yesterday, 1 unit PLT. * Today she will receive 2 units PRBCs * Monitor H/H History of Asthma * Albuterol Q6 prn dyspnea * Mucinex 600 mg PO BID * Promethazine with codeine 5 ml PO Q4H prn * Dr. Yanely cardoso consulted, help appreciated Hx of Sinus Tachycardia with Elevated Troponin on Previous admission This admission: * Sinus tachycardia 2/2 anemia * CTA: NO PE Prior admission: * Sample Supervisor Dr. Joya * SVT on 05/28 * Sinus tachycardia * Ordered for repeat echo and chest xray PA and lateral-->negative for acute findings * 2D Echocardiogram (05/07/17): EF: 60-70% systolic (official report available in the chart) * CT Chest: no PE (from 05/09/17) Prophylatic Measures * PT/OT EVAL * Manager Inside referral * Dysphagia diet DW Renny Antony DO, PGY-1 <Miracle Richter V - Last Filed: 07/11/17 14:56> Objective - Vital Signs/Intake and Output Vital Signs (last 24 hours): Temp Pulse Resp BP Pulse Ox 98.3 F 97 H 18 105/65 100 06/14/17 15:00 06/14/17 15:00 06/14/17 15:00 06/14/17 15:00 06/14/17 15:00 - Labs Labs: 06/14/17 06:54 06/14/17 06:54 PT 18.2 SECONDS (9.7-12.2) H 06/06/17 13:04 INR 1.6 06/06/17 13:04 APTT 30 SECONDS (21-34) 06/06/17 13:04 Attending/Attestation - Attestation I have personally seen and examined this patient.: Yes I have fully participated in the care of the patient.: Yes I have reviewed all pertinent clinical information, including history, physical exam and plan: Yes Notes (Text): This is late computer entry for 06/07/17. Patient seen, examined and case discussed with day-time resident. Patient with history of Hodgken's Lymphoma who presents with neutropenic fever, currently on chemotherapy. Patient's procalcitonin elevated, signifying bacterial origin to infection. Patient currently on Meropenem and Vancomycin IV per ID. Repeat CT does not show PE in light of malignancy history, on IV to treat for pneumonia. Per heme-onc, 2 units of PRBC to be transfused today. Completed 1 unit of RBC and 1 unit of Platelets. No additional platelet transfusion per heme-onc. Heme-onc, Infectious disease, and Pulm on board-->help appreciated Assessment/Plan 1) Neutropenic Fever * Tmax 102.2, neutropenic; infection: pneumonia * Dr. James Blackwell heme/onc consulted, help appreciated. * Dr. Salazar ID consulted, help appreciated. * In the Ed, given one dose of GranixPatient received 1300mL NS bolus in ED. Patient given an additional of 1.5 liters of NS bolus. * CXR (06/06): Right-sided MediPort extends expected location of the cavoatrial junction.Patchy opacity seen adjacent to the MediPort hub, possibly atelectasis or consolidation ; nodule cannot be excluded. Right hilar/perihilar opacity may also reflect infiltrate. Mild left basilar atelectasis.Probable bilateral tiny pleural effusions. Mild cardiomegaly. * CTA chest (06/06): No pulmonary Embolism noted. Compared to a prior CT of 2016, development of multifocal areas of cavitation in the right lung, located in areas of dense consolidation, suspicious for a cavitary pneumonia. Fungal or mycobacterial pneumonia could have this appearance. The overall degree of consolidation in the right lung appears decreased, however. - Otherwise, no obvious new, acute findings. No evidence of pulmonary embolism. - Stable appearance of a large 7 cm cavitary lesion in the right upper lobe. - Grossly stable appearance of extensive, infiltrative soft tissue in the mediastinum and june bilaterally, greater on the right, suspicious for infiltrative lymphadenopathy. This causes narrowing of the airways on the right. - Moderate right pleural effusion, mildly decreased in size. * Procal: 3.33 * Mycoplasma, rapid flu, rapid strep test - NEGATIVE * F/u Urine Legionella * Started on: * Maintenance fluids: NS 100cc/hr * Merrem 1 gm IV Q8H * Vancomycin 500 mg IV daily * Tylenol PRN 2) Hx of Hodgkin's Lymphoma with Right Chest Port * Heme-Onc: James Blackwell on the case Previous records from prior admission: * Per heme-onc, bx from last admission confirms classical Hodgkin's Lymphoma from lymph node biopsy * Patient was started on ICE regimen chemotherapy per heme-onc last admission, on prophylaxis for tumor lysis. Will need outpatient bone marrow transplant evaluation. * ICE Regimen: * Chemotherapy regimen (hand written chemo orders in the chart) * Etoposide 150mg IV X1 (05/24-05/26) * Carboplatin 700mg X1 (05/25) * Ifosfomide 7500mg X1 (05/25) * Mesna 7500mg IV (05/25) 3) Anemia of Chronic Disease * Likely Secondary to anemia of chronic disease HL (Hodgkin's lymphoma), hx of chemotherapy * Iron Studies 05/08/17 showed Total Iron low at 20, TIBC normal at 382, and % Sat low at 5 * Patient transfused 1 unit PRBC yesterday, 1 unit PLT. * Today she will receive 2 units PRBCs today * Monitor H/H 4) History of Asthma * Albuterol Q6 prn dyspnea * Mucinex 600 mg PO BID * Promethazine with codeine 5 ml PO Q4H prn * Dr. Yanely cardoso consulted, help appreciated 5) Hx of Sinus Tachycardia * multifactorial etiology: anemia, malignancy and infection * Rule out pulmonary embolism * No pneumothorax noted on repeat CT scan; CT scan ruled out PE * 2D Echocardiogram (05/07/17): EF: 60-70% systolic (official report available in the chart) 6) Prophylactic Measures * PT/OT EVAL * Manager Inside referral * Dysphagia diet * No chemical anticoagulation secondary to thrombocytopenia
[2017-06-07 08:23] LABS: BASO % 0.3 % (0.0-2.0); EOS % 0.1 % (0.0-4.0); HEMATOCRIT 20.4 % (34.0-47.0); LYMPH # 0.1 K/uL (1.0-4.3); LYMPH % 10.4 % (20.0-40.0); MEAN CELL VOLUME 74.3 fL (81.0-99.0); MEAN CORPUSCULAR HEMOGLOBIN 24.2 pg (27.0-31.0); MEAN CORPUSCULAR HGB CONC 32.6 g/dL (33.0-37.0); MONO # 0.4 K/uL (0.0-0.8); MONO % 33.1 % (0.0-10.0); NRBC % 0.1 % (0.0-2.0)
[2017-06-07 08:32] LABS: PLATELET COUNT 14 K/uL (130-400); WHITE BLOOD COUNT 1.3 K/uL (4.8-10.8)
[2017-06-07 08:41] LABS: CHLORIDE 103 mmol/L (98-107)
[2017-06-07 08:42] LABS: POTASSIUM 3.1 mmol/L (3.6-5.2); SODIUM 138 mmol/L (132-148)
[2017-06-07 08:44] LABS: ALB/GLOB RATIO 0.9 (1.0-2.1); ALKALINE PHOSPHATASE 64 U/L (38-126); AST/SGOT 21 U/L (14-36); BILIRUBIN,TOTAL 0.9 mg/dL (0.2-1.3); BLOOD UREA NITROGEN 5 mg/dL (7-17); CARBON DIOXIDE 20 mmol/L (22-30); GFR AFRICAN-AMERICAN > 60
[2017-06-07 08:45] LABS: ALT/SGPT 62 U/L (9-52); GLUCOSE,RANDOM 83 mg/dL (65-105); MAGNESIUM 1.8 mg/dL (1.6-2.3); PHOSPHOROUS 2.4 mg/dL (2.5-4.5)
[2017-06-07 09:23] LABS: NEUTROPHIL 50 % (50-75); TOTAL CELLS COUNTED 50
[2017-06-07] MEDS ORDERED: Potassium Chloride 20 mEq ER Tab PO SCH (10:00)
[2017-06-07] MEDS ORDERED: Vancomycin 500mg/D5W 100 ml 500 MG/100 ML BAG IVPB SCH (10:00)
[2017-06-07] MEDS: Potassium & Sodium Phosphate PO SCH ×2 (11:30→21:23)
--- NOTE | 2017-06-07 11:50 | CP.PCM.CON ---
History of Present Illness - History of Present Illness History of Present Illness: 26 year old female with a history of recurrent classical hodgkins lymphoma on salvage chemotherapy, admitted with neutropenic fever. The patient was seen in outpatient chemotherapy for a count check and possible need for transfusions. She was found to have a fever of 102.3 and sent down to the ER. She reports to feeling weak. She denies shortness of breath and chest pain. Past medical history: Classical hodgkins Past surgical history: Portacath Family history: Denies hematologic and oncologic problems Social history: Denies tobacco, alcohol, and illicit drug use. Allergies: NKA Review of systems: All remaining review of systems including HEENT, cardiovacular, respiratory, gastrointestinal, genitourinary, musculoskeletal, dermatologic, neurologic, and psychiatric are negative unless mentioned in the HPI. Past Patient History - Past Medical History & Family History Past Medical History?: Yes - Past Social History Smoking Status: Former Smoker - CARDIAC Hx Cardiac Disorders: No - PULMONARY Hx Respiratory Disorders: Yes Hx Asthma: Yes - NEUROLOGICAL Hx Neurological Disorder: No - HEENT Hx HEENT Problems: No - RENAL Hx Chronic Kidney Disease: No - ENDOCRINE/METABOLIC Hx Endocrine Disorders: No - HEMATOLOGICAL/ONCOLOGICAL Hx Blood Disorders: No Hx Blood Transfusions: Yes Hx Chemotherapy: Yes - INTEGUMENTARY Hx Dermatological Problems: No - MUSCULOSKELETAL/RHEUMATOLOGICAL Hx Musculoskeletal Disorders: No Hx Falls: No - GASTROINTESTINAL Hx Gastrointestinal Disorders: No - GENITOURINARY/GYNECOLOGICAL Hx Genitourinary Disorders: No - PSYCHIATRIC Hx Psychophysiologic Disorder: No Hx Substance Use: No - SURGICAL HISTORY Hx Surgeries: Yes Hx Vascular Access Device: Yes (port a cath) Other/Comment: Hodgkin's Lymphoma. Removal of "mass" in my left neck - ANESTHESIA Hx Anesthesia: No Hx Anesthesia Reactions: No Hx Malignant Hyperthermia: No Meds Allergies/Adverse Reactions: Allergies Allergy/AdvReac Type Severity Reaction Status Date / Time No Known Allergies Allergy Verified 06/06/17 11:32 - Medications Medications: Current Medications Acetaminophen (Tylenol 325mg Tab) 650 mg PO Q6 PRN PRN Reason: Fever >100.4 F Albuterol (Ventolin Hfa 90 Mcg/Actuation (8 G)) 1 puff INH RQ6 PRN PRN Reason: Shortness of Breath Guaifenesin (Mucinex La) 600 mg PO BID [facility] Last Admin: 06/06/17 18:53 Dose: 600 mg Sodium Chloride (Sodium Chloride 0.9%) 1,000 mls @ 100 mls/hr IV .Q10H [facility] Last Admin: 06/07/17 01:30 Dose: Not Given Meropenem 1 gm/ Sodium (Chloride) 100 mls @ 100 mls/hr IVPB Q8H [facility] Last Admin: 06/07/17 02:11 Dose: 100 mls/hr Vancomycin/Sodium Chloride (Vancocin) 1 gm in 200 mls @ 66.667 mls/hr IVPB Q12H [facility] Stop: 06/12/17 01:01 Last Admin: 06/07/17 00:00 Dose: 66.667 mls/hr Potassium Chloride (Potassium Chloride Oral Soln) 40 meq PO DAILY [facility] Stop: 06/08/17 10:01 Potassium Phos/Sodium Phos (Neutra-Phos) 1 pkt PO BID [facility] Stop: 06/08/17 10:01 Promethazine HCl/Codeine (Phenergan/Codeine Oral Syrup) 5 ml PO Q4 PRN PRN Reason: Cough Physical Exam - Constitutional Appears: Cachectic - Head Exam Head Exam: ATRAUMATIC - Eye Exam Eye Exam: Normal appearance - ENT Exam ENT Exam: Mucous Membranes Dry - Respiratory Exam Respiratory Exam: NORMAL BREATHING PATTERN - Cardiovascular Exam Cardiovascular Exam: +S1, +S2 - GI/Abdominal Exam GI & Abdominal Exam: Normal Bowel Sounds - Extremities Exam Extremities exam: Positive for: normal inspection - Neurological Exam Neurological exam: Oriented x3 - Psychiatric Exam Psychiatric exam: Normal Affect, Normal Mood - Skin Skin Exam: Warm Results - Vital Signs Recent Vital Signs: Last Vital Signs Temp 99.5 F 06/07/17 07:00 Pulse 110 H 06/07/17 07:00 Resp 22 06/07/17 07:00 BP 98/65 L 06/07/17 07:00 Pulse Ox 99 06/07/17 07:00 - Labs Result Diagrams: 06/07/17 08:12 06/07/17 08:12 Labs: Laboratory Results - last 24 hr 06/06/17 06/06/17 06/06/17 11:04 12:56 13:04 WBC 0.8 L* RBC 2.68 L Hgb 6.5 L* Hct 19.6 L MCV 73.1 L MCH 24.3 L MCHC 33.2 RDW 20.2 H Plt Count 13 L* MPV 12.4 H Neut % (Auto) 31.9 L Lymph % (Auto) 21.5 Payne % (Auto) 46.1 H Eos % (Auto) 0.2 Baso % (Auto) 0.3 Neut # 0.3 L Lymph # 0.2 L Payne # 0.4 Eos # 0.0 Baso # 0.0 Neutrophils % (Manual) Band Neutrophils % Lymphocytes % (Manual) Monocytes % (Manual) Toxic Granulation Platelet Estimate Hypochromasia (manual) Poikilocytosis (manual Anisocytosis (manual) Microcytosis (manual) Target Cells Tear Drop Cells Ovalocytes Cecilio Cells PT INR APTT pO2 VBG pH VBG pCO2 VBG HCO3 VBG Total CO2 VBG O2 Sat (Calc) VBG Base Excess VBG Potassium Glucose Lactate Sodium Potassium Chloride Carbon Dioxide Anion Gap BUN Creatinine Est GFR ( Amer) Est GFR (Non-Af Amer) Random Glucose Calcium Phosphorus Magnesium Total Bilirubin AST ALT Alkaline Phosphatase Total Protein Albumin Globulin Albumin/Globulin Ratio Procalcitonin Venous Blood Potassium Urine Color Yellow Urine Clarity Hazy Urine pH 6.0 Ur Specific [place] 1.016 Urine Protein 2+ H Urine Glucose (UA) Normal Urine Ketones Negative Urine Blood 1+ H Urine Nitrate Negative Urine Bilirubin Negative Urine Urobilinogen 2.0 H Ur Leukocyte Esterase Neg Urine WBC (Auto) 3 Urine RBC (Auto) 3 Ur Squamous Epith Cells 6 H Urine Bacteria Rare Urine HCG, Qual Negative Influenza Typ A,B (EIA) Negative for flu a/b Mycoplasma pneumon IgM Grp A Beta Strep Ag Blood Type Antibody Screen 06/06/17 06/06/17 06/06/17 13:04 13:15 14:01 WBC RBC Hgb Hct MCV MCH MCHC RDW Plt Count MPV Neut % (Auto) Lymph % (Auto) Payne % (Auto) Eos % (Auto) Baso % (Auto) Neut # Lymph # Payne # Eos # Baso # Neutrophils % (Manual) Band Neutrophils % Lymphocytes % (Manual) Monocytes % (Manual) Toxic Granulation Platelet Estimate Hypochromasia (manual) Poikilocytosis (manual Anisocytosis (manual) Microcytosis (manual) Target Cells Tear Drop Cells Ovalocytes Cecilio Cells PT 18.2 H INR 1.6 APTT 30 pO2 VBG pH VBG pCO2 VBG HCO3 VBG Total CO2 VBG O2 Sat (Calc) VBG Base Excess VBG Potassium Glucose Lactate Sodium 131 L Potassium 3.3 L Chloride 92 L Carbon Dioxide 23 Anion Gap 19 BUN 7 Creatinine 0.4 L Est GFR ( Amer) > 60 Est GFR (Non-Af Amer) > 60 Random Glucose 93 Calcium 8.9 Phosphorus 3.0 Magnesium 1.4 L Total Bilirubin 0.7 AST 29 ALT 49 Alkaline Phosphatase 76 Total Protein 6.9 Albumin 3.4 L Globulin 3.5 Albumin/Globulin Ratio 1.0 Procalcitonin Venous Blood Potassium Urine Color Urine Clarity Urine pH Ur Specific [place] Urine Protein Urine Glucose (UA) Urine Ketones Urine Blood Urine Nitrate Urine Bilirubin Urine Urobilinogen Ur Leukocyte Esterase Urine WBC (Auto) Urine RBC (Auto) Ur Squamous Epith Cells Urine Bacteria Urine HCG, Qual Influenza Typ A,B (EIA) Mycoplasma pneumon IgM Grp A Beta Strep Ag Blood Type AB POSITIVE Antibody Screen Negative 06/06/17 06/06/17 06/06/17 14:29 16:28 17:39 WBC RBC Hgb Hct MCV MCH MCHC RDW Plt Count MPV Neut % (Auto) Lymph % (Auto) Payne % (Auto) Eos % (Auto) Baso % (Auto) Neut # Lymph # Payne # Eos # Baso # Neutrophils % (Manual) Band Neutrophils % Lymphocytes % (Manual) Monocytes % (Manual) Toxic Granulation Platelet Estimate Hypochromasia (manual) Poikilocytosis (manual Anisocytosis (manual) Microcytosis (manual) Target Cells Tear Drop Cells Ovalocytes [place] Cells PT INR APTT pO2 24 L VBG pH 7.40 VBG pCO2 40 VBG HCO3 23.4 VBG Total CO2 26.0 VBG O2 Sat (Calc) 43.6 VBG Base Excess 0.0 VBG Potassium 3.0 L Glucose 91 Lactate 1.1 Sodium 132.0 Potassium Chloride 100.0 Carbon Dioxide Anion Gap BUN Creatinine Est GFR ( Amer) Est GFR (Non-Af Amer) Random Glucose Calcium Phosphorus Magnesium Total Bilirubin AST ALT Alkaline Phosphatase Total Protein Albumin Globulin Albumin/Globulin Ratio Procalcitonin 3.33 H Venous Blood Potassium 3.0 L Urine Color Urine Clarity Urine pH Ur Specific [place] Urine Protein Urine Glucose (UA) Urine Ketones Urine Blood Urine Nitrate Urine Bilirubin Urine Urobilinogen Ur Leukocyte Esterase Urine WBC (Auto) Urine RBC (Auto) Ur Squamous Epith Cells Urine Bacteria Urine HCG, Qual Influenza Typ A,B (EIA) Mycoplasma pneumon IgM Negative Grp A Beta Strep Ag Blood Type Antibody Screen 06/06/17 06/07/17 06/07/17 17:47 08:12 08:12 WBC 1.3 L* D RBC 2.74 L Hgb 6.7 L Hct 20.4 L MCV 74.3 L MCH 24.2 L MCHC 32.6 L RDW 19.0 H Plt Count 14 L* MPV 11.0 Neut % (Auto) 56.1 Lymph % (Auto) 10.4 L Payne % (Auto) 33.1 H Eos % (Auto) 0.1 Baso % (Auto) 0.3 Neut # 0.7 L Lymph # 0.1 L Payne # 0.4 Eos # 0.0 Baso # 0.0 Neutrophils % (Manual) 50 Band Neutrophils % 2 Lymphocytes % (Manual) 10 L Monocytes % (Manual) 38 H Toxic Granulation Present Platelet Estimate Markedly decreased L Hypochromasia (manual) Marked Poikilocytosis (manual Slight Anisocytosis (manual) Slight Microcytosis (manual) Slight Target Cells Slight Tear Drop Cells Slight Ovalocytes Slight Cecilio Cells Slight PT INR APTT pO2 VBG pH VBG pCO2 VBG HCO3 VBG Total CO2 VBG O2 Sat (Calc) VBG Base Excess VBG Potassium Glucose Lactate Sodium 138 Potassium 3.1 L Chloride 103 Carbon Dioxide 20 L Anion Gap 18 BUN 5 L Creatinine 0.3 L Est GFR ( Amer) > 60 Est GFR (Non-Af Amer) > 60 Random Glucose 83 Calcium 8.0 L Phosphorus 2.4 L Magnesium 1.8 Total Bilirubin 0.9 AST 21 ALT 62 H D Alkaline Phosphatase 64 Total Protein 6.0 L Albumin 2.8 L Globulin 3.1 Albumin/Globulin Ratio 0.9 L Procalcitonin Venous Blood Potassium Urine Color Urine Clarity Urine pH Ur Specific [place] Urine Protein Urine Glucose (UA) Urine Ketones Urine Blood Urine Nitrate Urine Bilirubin Urine Urobilinogen Ur Leukocyte Esterase Urine WBC (Auto) Urine RBC (Auto) Ur Squamous Epith Cells Urine Bacteria Urine HCG, Qual Influenza Typ A,B (EIA) Mycoplasma pneumon IgM Grp A Beta Strep Ag Negative Blood Type Antibody Screen Assessment & Plan (1) Neutropenic fever Assessment and Plan: empiric antibiotics henderson culture Status: Acute (2) Pancytopenia Assessment and Plan: growth factor support until ANC > 500 transfusion support PRN Status: Acute (3) Hodgkin lymphoma Assessment and Plan: on salvage ICE will need bone marrow transplant evaluation as outpatient Thank you for this interesting consult. Status: Acute
[2017-06-07] MEDS: Potassium Chloride 20 mEq/15 ml LIQ UD PO SCH (12:23)
[2017-06-07] MEDS: guaiFENesin 600 mg ER Tab PO SCH ×2 (12:24→21:22)
[2017-06-07] MEDS: Vancomycin 1 gm/NS 200 ml 1 GM/200 ML BAG IVPB SCH ×2 (12:25)
--- NOTE | 2017-06-07 14:20 | CP.PCM.CON ---
History of Present Illness - History of Present Illness History of Present Illness: admitted with neutropenic fever r/o sepsis pulm infiltrates iv antibiotics started hx recurrent lymphoma Review of Systems - Constitutional Constitutional: As Per HPI, Anorexia, Fever - EENT Eyes: absent: As Per HPI, Blind Spots, Blurred Vision, Change in Vision, Decreased Night Vision, Diplopia, Discharge, Dry Eye, Exophthalmos, Floaters, Irritation, Itchy Eyes, Loss of Peripheral Vision, Pain, Photophobia, Requires Corrective Lenses, Sees Flashes, Spots in Vision, Tunnel Vision, Other Visual Disturbances, Loss of Vision, Other Ears: absent: As Per HPI, Decreased Hearing, Ear Discharge, Ear Pain, Tinnitus, Abnormal Hearing, Disequilibrium, Dizziness, Other Nose/Mouth/Throat: absent: As Per HPI, Epistaxis, Nasal Congestion, Nasal Discharge, Nasal Obstruction, Nasal Trauma, Nose Pain, Post Nasal Drip, Sinus Pain, Sinus Pressure, Bleeding Gums, Change in Voice, Dental Pain, Dry Mouth, Dysphagia, Halitosis, Hoarsness, Lip Swelling, Mouth Lesions, Mouth Pain, Odynophagia, Sore Throat, Throat Swelling, Tongue Swelling, Facial Pain, Neck Pain, Neck Mass, Other - Breasts Breasts: absent: As Per HPI, Change in Shape, Mass, Pain, Nipple Discharge, Nipple Inversion, Skin Changes, Swelling, Other - Cardiovascular Cardiovascular: absent: As Per HPI, Acrocyanosis, Chest Pain, Chest Pain at Rest , Chest Pain with Activity, Claudication, Diaphoresis, Dyspnea, Dyspnea on Exertion, Edema, Irregular Heart Rhythm, Pain Radiating to Arm/Neck/Jaw, Leg Edema, Leg Ulcers, Lightheadedness, Orthopnea, Palpitations, Paroxysmal Nocturnal Dyspnea, Pedal Edema, Radiating Pain, Rapid Heart Rate, Slow Heart Rate, Syncope, Other - Respiratory Respiratory: absent: As Per HPI, Cough, Dyspnea, Hemoptysis, Dyspnea on Exertion , Wheezing, Snoring, Stridor, Pain on Inspiration, Chest Congestion, Excessive Mucous Production, Change in Mucous Color, Pain with Coughing, Other - Gastrointestinal Gastrointestinal: absent: As Per HPI, Abdominal Pain, Belching, Bloating, Change in Bowel Habits, Change in Stool Character, Coffee Ground Emesis, Constipation, Cramping, Diarrhea, Dyspepsia, Dysphagia, Early Satiety, Excessive Flatus, Fecal Incontinence, Heartburn, Hematemesis, Hematochezia, Loose Stools, Melena, Nausea, Odynophagia, Temesmus, Vomiting, Other - Genitourinary Genitourinary: absent: As Per HPI, Change in Urinary Stream, Difficulty Urinating, Dysuria, Flank Pain, Hematuria, Pyuria, Nocturia, Urinary Incontinence, Urinary Frequency, Urinary Hesitance, Urinary Urgency, Voiding Freq/Small Amts, Freq UTI, Hx Renal/Bladder Calculi, Hx /Renal Surgery, Bladder Distension, Other - Reproductive: Female Reproductive:Female: absent: As Per HPI, Amenorrhea, Amenorrhea/ Control, Currently Menstual, Cycle <21 Days, Cycle >35 Days, Cycle Variable, Menses 1-7 Days, Menses >/= 8 Days, Menses Variable, Cycle > 4 Weeks Between, No Menses for 6 Months, Heavy Menses, Light Menses, Normal Menses, Spotting Between Cycles , S/P Hysterectomy, Menopausal, Post Menopausal, Premenarche, Abnormal Vaginal Bleeding, Dysmenorrhea, Dyspareunia, Genital Lesions, Genital Pruritis, Pelvic Pain, Prolapse Symptoms, Sexual Dysfunction, Vaginal Discharge, Vaginal Dryness , Vaginal Odor, Vaginal Pruritis, Other - Menstruation Menstruation: absent: As Per HPI, Amenorrhea, Amenorrhea/ Control, Currently Menstual, Cycle <21 Days, Cycle >35 Days, Cycle Variable, Menses 1-7 Days, Menses >/= 8 Days, Menses Variable, Cycle > 4 Weeks Between, No Menses for 6 Months, Heavy Menses, Light Menses, Normal Menses, Spotting Between Cycles , S/P Hysterectomy, Menopausal, Post Menopausal, Premenarche, Abnormal Vaginal Bleeding, Dysmenorrhea, Other - Musculoskeletal Musculoskeletal: absent: As Per HPI, Abnormal Gait, Arthralgias, Atrophy, Back Pain, Deformity, Joint Swelling, Limited Range of Motion, Loss of Height, Muscle Cramps, Muscle Weakness, Myalgias, Neck Pain, Numbness, Radiating Pain into Limb, Stiffness, Tingling, Other - Integumentary Integumentary: absent: As Per HPI, Acne, Alopecia, Bleeding Lesions, Change in Hair, Change in Nails, Change in Pigmentation, Changing Lesions, Dry Skin, Erythema, Furuncle, Hirsutism, Lesions, New Lesions, Non-Healing Lesions, Photosensitivity, Pruritus, Rash, Skin Pain, Skin Ulcer, Sores, Striae, Swelling , Unusual Bruising, Wounds, Jaundice, Other - Neurological Neurological: absent: As Per HPI, Abnormal Gait, Abnormal Hearing, Abnormal Movements, Abnormal Speech, Behavioral Changes, Burning Sensations, Confusion, Convulsions, Disequilibrium, Dizziness, Numbness, Focal Weakness, Frequent Falls , Headaches, Lack of Coordination, Loss of Vision, Memory Loss, Paresthesias, Radicular Pain, Restless Legs, Sensory Deficit, Syncope, Tingling, Tremor, Vertigo, Weakness, Other Visual Disturbances, Other - Psychiatric Psychiatric: absent: As Per HPI, Abnormal Sleep Pattern, Anhedonia, Anxiety, Auditory Hallucinations, Behavioral Changes, Change in Appetite, Change in Libido, Confusion, Depression, Difficulty Concentrating, Hallucinations, Homicidal Ideation, Hopelessness, Irritability, Memory Loss, Mood Swings, Panic Attacks, Paranoia, Suicidal Ideation, Visual Hallucinations, Tactile Hallucinations, Other - Endocrine Endocrine: absent: As Per HPI, Change in Body Appearance, Change in Libido, Cold Intolorance, Deepening of Voice, Excessive Sweating, Fatigue, Flushing, Heat Intolorance, Increase in Ring/Shoe/Hat Size, Palpitations, Polydipsia, Polyphagia, Polyuria, Other - Hematologic/Lymphatic Hematologic: absent: As Per HPI, Easy Bleeding, Easy Bruising, Lymphadenopathy, Other Past Patient History - Past Medical History & Family History Past Medical History?: Yes - Past Social History Smoking Status: Former Smoker - CARDIAC Hx Cardiac Disorders: No - PULMONARY Hx Respiratory Disorders: Yes Hx Asthma: Yes - NEUROLOGICAL Hx Neurological Disorder: No - HEENT Hx HEENT Problems: No - RENAL Hx Chronic Kidney Disease: No - ENDOCRINE/METABOLIC Hx Endocrine Disorders: No - HEMATOLOGICAL/ONCOLOGICAL Hx Blood Disorders: No Hx Blood Transfusions: Yes Hx Chemotherapy: Yes - INTEGUMENTARY Hx Dermatological Problems: No - MUSCULOSKELETAL/RHEUMATOLOGICAL Hx Musculoskeletal Disorders: No Hx Falls: No - GASTROINTESTINAL Hx Gastrointestinal Disorders: No - GENITOURINARY/GYNECOLOGICAL Hx Genitourinary Disorders: No - PSYCHIATRIC Hx Psychophysiologic Disorder: No Hx Substance Use: No - SURGICAL HISTORY Hx Surgeries: Yes Hx Vascular Access Device: Yes (port a cath) Other/Comment: Hodgkin's Lymphoma. Removal of "mass" in my left neck - ANESTHESIA Hx Anesthesia: No Hx Anesthesia Reactions: No Hx Malignant Hyperthermia: No Meds Allergies/Adverse Reactions: Allergies Allergy/AdvReac Type Severity Reaction Status Date / Time No Known Allergies Allergy Verified 06/06/17 11:32 - Medications Medications: Current Medications Acetaminophen (Tylenol 325mg Tab) 650 mg PO Q6 PRN PRN Reason: Fever >100.4 F Albuterol (Ventolin Hfa 90 Mcg/Actuation (8 G)) 1 puff INH RQ6 PRN PRN Reason: Shortness of Breath Guaifenesin (Mucinex La) 600 mg PO BID [facility] Last Admin: 06/07/17 12:24 Dose: 600 mg Sodium Chloride (Sodium Chloride 0.9%) 1,000 mls @ 100 mls/hr IV .Q10H [facility] Last Admin: 06/07/17 12:23 Dose: 100 mls/hr Meropenem 1 gm/ Sodium (Chloride) 100 mls @ 100 mls/hr IVPB Q8H [facility] Last Admin: 06/07/17 10:26 Dose: 100 mls/hr Vancomycin/Sodium Chloride (Vancocin) 1 gm in 200 mls @ 66.667 mls/hr IVPB Q12H [facility] Stop: 06/12/17 01:01 Last Admin: 06/07/17 12:25 Dose: 66.667 mls/hr Potassium Chloride (Potassium Chloride Oral Soln) 40 meq PO DAILY [facility] Stop: 06/08/17 10:01 Last Admin: 06/07/17 12:23 Dose: 40 meq Potassium Phos/Sodium Phos (Neutra-Phos) 1 pkt PO BID [facility] Stop: 06/08/17 10:01 Last Admin: 06/07/17 11:30 Dose: 1 pkt Promethazine HCl/Codeine (Phenergan/Codeine Oral Syrup) 5 ml PO Q4 PRN PRN Reason: Cough Physical Exam - Constitutional Appears: Non-toxic, Chronically Ill - Head Exam Head Exam: NORMOCEPHALIC - Eye Exam Eye Exam: PERRL. absent: Scleral icterus - ENT Exam ENT Exam: Mucous Membranes Dry, Normal External Ear Exam - Neck Exam Neck exam: Negative for: Lymphadenopathy - Respiratory Exam Respiratory Exam: Decreased Breath Sounds, Rhonchi - Cardiovascular Exam Cardiovascular Exam: REGULAR RHYTHM, +S1, +S2 - GI/Abdominal Exam GI & Abdominal Exam: Diminished Bowel Sounds, Soft. absent: Tenderness - Rectal Exam Rectal Exam: Deferred - Exam Exam: NORMAL INSPECTION - Extremities Exam Extremities exam: Negative for: calf tenderness, pedal edema, tenderness - Back Exam Back exam: absent: CVA tenderness (L), CVA tenderness (R) - Neurological Exam Neurological exam: Alert, CN II-XII Intact, Oriented x3, Reflexes Normal - Psychiatric Exam Psychiatric exam: Normal Mood - Skin Skin Exam: Dry, Intact Results - Vital Signs Recent Vital Signs: Last Vital Signs Temp 99.5 F 06/07/17 07:00 Pulse 110 H 06/07/17 07:00 Resp 22 06/07/17 07:00 BP 98/65 L 06/07/17 07:00 Pulse Ox 99 06/07/17 07:00 - Labs Result Diagrams: 06/07/17 08:12 06/07/17 08:12 Labs: Laboratory Results - last 24 hr 06/06/17 06/06/17 06/06/17 14:01 14:29 16:28 WBC RBC Hgb Hct MCV MCH MCHC RDW Plt Count MPV Neut % (Auto) Lymph % (Auto) [place] % (Auto) Eos % (Auto) Baso % (Auto) Neut # Lymph # Chase # Eos # Baso # Neutrophils % (Manual) Band Neutrophils % Lymphocytes % (Manual) Monocytes % (Manual) Toxic Granulation Platelet Estimate Hypochromasia (manual) Poikilocytosis (manual Anisocytosis (manual) Microcytosis (manual) Target Cells Tear Drop Cells Ovalocytes Cecilio Cells pO2 24 L VBG pH 7.40 VBG pCO2 40 VBG HCO3 23.4 VBG Total CO2 26.0 VBG O2 Sat (Calc) 43.6 VBG Base Excess 0.0 VBG Potassium 3.0 L Sodium 132.0 Chloride 100.0 Glucose 91 Lactate 1.1 Potassium Carbon Dioxide Anion Gap BUN Creatinine Est GFR ( Amer) Est GFR (Non-Af Amer) Random Glucose Calcium Phosphorus Magnesium Total Bilirubin AST ALT Alkaline Phosphatase Total Protein Albumin Globulin Albumin/Globulin Ratio Procalcitonin Venous Blood Potassium 3.0 L Mycoplasma pneumon IgM Negative Grp A Beta Strep Ag Blood Type AB POSITIVE Antibody Screen Negative 06/06/17 06/06/17 06/07/17 17:39 17:47 08:12 WBC 1.3 L* D RBC 2.74 L Hgb 6.7 L Hct 20.4 L MCV 74.3 L MCH 24.2 L MCHC 32.6 L RDW 19.0 H Plt Count 14 L* MPV 11.0 Neut % (Auto) 56.1 Lymph % (Auto) 10.4 L [place] % (Auto) 33.1 H Eos % (Auto) 0.1 Baso % (Auto) 0.3 Neut # 0.7 L Lymph # 0.1 L [place] # 0.4 Eos # 0.0 Baso # 0.0 Neutrophils % (Manual) 50 Band Neutrophils % 2 Lymphocytes % (Manual) 10 L Monocytes % (Manual) 38 H Toxic Granulation Present Platelet Estimate Markedly decreased L Hypochromasia (manual) Marked Poikilocytosis (manual Slight Anisocytosis (manual) Slight Microcytosis (manual) Slight Target Cells Slight Tear Drop Cells Slight Ovalocytes Slight Cecilio Cells Slight pO2 VBG pH VBG pCO2 VBG HCO3 VBG Total CO2 VBG O2 Sat (Calc) VBG Base Excess VBG Potassium Sodium Chloride Glucose Lactate Potassium Carbon Dioxide Anion Gap BUN Creatinine Est GFR ( Amer) Est GFR (Non-Af Amer) Random Glucose Calcium Phosphorus Magnesium Total Bilirubin AST ALT Alkaline Phosphatase Total Protein Albumin Globulin Albumin/Globulin Ratio Procalcitonin 3.33 H Venous Blood Potassium Mycoplasma pneumon IgM Grp A Beta Strep Ag Negative Blood Type Antibody Screen 06/07/17 08:12 WBC RBC Hgb Hct MCV MCH MCHC RDW Plt Count MPV Neut % (Auto) Lymph % (Auto) [place] % (Auto) Eos % (Auto) Baso % (Auto) Neut # Lymph # [place] # Eos # Baso # Neutrophils % (Manual) Band Neutrophils % Lymphocytes % (Manual) Monocytes % (Manual) Toxic Granulation Platelet Estimate Hypochromasia (manual) Poikilocytosis (manual Anisocytosis (manual) Microcytosis (manual) Target Cells Tear Drop Cells Ovalocytes Cecilio Cells pO2 VBG pH VBG pCO2 VBG HCO3 VBG Total CO2 VBG O2 Sat (Calc) VBG Base Excess VBG Potassium Sodium 138 Chloride 103 Glucose Lactate Potassium 3.1 L Carbon Dioxide 20 L Anion Gap 18 BUN 5 L Creatinine 0.3 L Est GFR ( Amer) > 60 Est GFR (Non-Af Amer) > 60 Random Glucose 83 Calcium 8.0 L Phosphorus 2.4 L Magnesium 1.8 Total Bilirubin 0.9 AST 21 ALT 62 H D Alkaline Phosphatase 64 Total Protein 6.0 L Albumin 2.8 L Globulin 3.1 Albumin/Globulin Ratio 0.9 L Procalcitonin Venous Blood Potassium Mycoplasma pneumon IgM Grp A Beta Strep Ag Blood Type Antibody Screen Assessment & Plan (1) Neutropenic fever Status: Acute (2) Pancytopenia Status: Acute (3) Hodgkin lymphoma Status: Acute - Assessment and Plan (Free Text) Assessment: cont iv antibiotics
[2017-06-08] MEDS: Vancomycin 1 gm/NS 200 ml 1 GM/200 ML BAG IVPB SCH ×2 (00:51→13:24)
[2017-06-08] MEDS: Meropenem 1 GM in Sodium Chloride 0.9% 100 ML IVPB SCH ×3 (02:00→17:35)
--- NOTE | 2017-06-08 07:13 | CP.PCM.PN ---
<Serenity Waggonera - Last Filed: 06/08/17 14:17> Subjective - Date & Time of Evaluation Date of Evaluation: 06/08/17 Time of Evaluation: 07:00 - Subjective Subjective: Medicine Note for Dr. Richter Patient seen and examined at bedside. Patient reports she experienced some back pain last night. Denied fever,chills, headache, chest pain, SOB, abdominal pain , n/v/d/c, or urinary symptoms. Objective - Vital Signs/Intake and Output Vital Signs (last 24 hours): Temp Pulse Resp BP Pulse Ox 98.1 F 97 H 18 101/71 97 06/07/17 23:39 06/08/17 01:27 06/07/17 23:39 06/07/17 23:39 06/07/17 23:39 Intake and Output: 06/08/17 06/08/17 06:59 18:59 Intake Total 1425 Balance 1425 - Medications Medications: Current Medications Acetaminophen (Tylenol 325mg Tab) 650 mg PO Q6 PRN PRN Reason: Fever >100.4 F Albuterol (Ventolin Hfa 90 Mcg/Actuation (8 G)) 1 puff INH RQ6 PRN PRN Reason: Shortness of Breath Guaifenesin (Mucinex La) 600 mg PO BID [facility] Last Admin: 06/07/17 21:22 Dose: 600 mg Sodium Chloride (Sodium Chloride 0.9%) 1,000 mls @ 100 mls/hr IV .Q10H [facility] Last Admin: 06/07/17 21:26 Dose: Not Given Meropenem 1 gm/ Sodium (Chloride) 100 mls @ 100 mls/hr IVPB Q8H [facility] Last Admin: 06/08/17 02:00 Dose: 100 mls/hr Vancomycin/Sodium Chloride (Vancocin) 1 gm in 200 mls @ 66.667 mls/hr IVPB Q12H [facility] Stop: 06/12/17 01:01 Last Admin: 06/08/17 00:51 Dose: 66.667 mls/hr Potassium Chloride (Potassium Chloride Oral Soln) 40 meq PO DAILY [facility] Stop: 06/08/17 10:01 Last Admin: 06/07/17 12:23 Dose: 40 meq Potassium Phos/Sodium Phos (Neutra-Phos) 1 pkt PO BID [facility] Stop: 06/08/17 10:01 Last Admin: 06/07/17 21:23 Dose: 1 pkt Promethazine HCl/Codeine (Phenergan/Codeine Oral Syrup) 5 ml PO Q4 PRN PRN Reason: Cough - Labs Labs: 06/07/17 08:12 06/07/17 08:12 PT 18.2 SECONDS (9.7-12.2) H 06/06/17 13:04 INR 1.6 06/06/17 13:04 APTT 30 SECONDS (21-34) 06/06/17 13:04 - Additional Findings Additional findings: - Constitutional Appears: Toxic, No Acute Distress, Cachectic, Chronically Ill - Head Exam Head Exam: NORMAL INSPECTION, NORMOCEPHALIC - Eye Exam Eye Exam: EOMI, Normal appearance, PERRL - ENT Exam ENT Exam: Mucous Membranes Dry - Respiratory Exam Respiratory Exam: Decreased Breath Sounds, Rhonchi, Wheezes - Cardiovascular Exam Cardiovascular Exam: Tachycardia - GI/Abdominal Exam GI & Abdominal Exam: Soft, Normal Bowel Sounds. absent: Distended, Tenderness - Extremities Exam Extremities Exam: Normal Inspection. absent: Pedal Edema, Tenderness - Neurological Exam Neurological Exam: Alert, Awake, Oriented x3 - Psychiatric Exam Psychiatric exam: Normal Affect, Normal Mood - Skin Skin Exam: Dry, Intact, Normal Color, Warm Assessment and Plan - Assessment and Plan (Free Text) Plan: Neutropenic Fever Tmax 102.2, currently afebrile Dr. Blackwell heme/onc consulted, help appreciated Dr. Marie POLK consulted, help appreciated Patient given one dose of Granix in the ED.Patient received 1300mL NS bolus in ED.Patient given an additional of 1.5 liters of NS bolus. CXR (06/06): Right-sided MediPort extends expected location of the cavoatrial junction.Patchy opacity seen adjacent to the MediPort hub, possibly atelectasis or consolidation ; nodule cannot be excluded. Right hilar/perihilar opacity may also reflect infiltrate. Mild left basilar atelectasis.Probable bilateral tiny pleural effusions. Mild cardiomegaly. CTA chest (06/06): No pulmonary Embolism noted. Compared to a prior CT of 2016, development of multifocal areas of cavitation in the right lung, located in areas of dense consolidation, suspicious for a cavitary pneumonia. Fungal or mycobacterial pneumonia could have this appearance. The overall degree of consolidation in the right lung appears decreased, however. - Otherwise, no obvious new, acute findings. No evidence of pulmonary embolism. - Stable appearance of a large 7 cm cavitary lesion in the right upper lobe. - Grossly stable appearance of extensive, infiltrative soft tissue in the mediastinum and june bilaterally, greater on the right, suspicious for infiltrative lymphadenopathy. This causes narrowing of the airways on the right. - Moderate right pleural effusion, mildly decreased in size. Procal: 3.33 Mycoplasma, rapid flu, rapid strep test - NEGATIVE F/u Urine Legionella Started on: * Maintenance fluids: NS 100cc/hr * Meropenem 1 gm IV Q8H (started on 06/06) * Vancomycin 500 mg IV Q12 (started on 06/07) * Tylenol PRN Hx of Hodgkin's Lymphoma with Right Chest Port * Heme-Onc: James Blackwell on the case Previous records from prior admission: * Per heme-onc, need tissue biopsy for re-diagnosis if this is the same cancer, previously diagnosed for 2013-->f/u IR lymph nody biopsy (05/18/17)-->Pathology--> classical Hodgkin's Lymphoma (Discussed with Dr. Welch, pathology) from lymph node biopsy; discussed with ICU and Heme-Onc setup for inpatient chemotherapy-->patient start chemotherapy 05/24 on the ICE Regimen * Patient is currently on ICE Regimen for classical Hodgkin's lymphoma since ; on prophylaxis for tumor lysis; will need outpatient bone marrow transplant evaluation. Completed 1st week of chemotherapy. * Chemotherapy regimen (hand written chemo orders in the chart) * Etoposide 150mg IV X1 (05/24-05/26) * Carboplatin 700mg X1 (05/25) * Ifosfomide 7500mg X1 (05/25) * Mesna 7500mg IV (05/25) Prior documentation: * Per [facility] documentation: untreated Hodgkin lymphoma w new mass on the left side of the neck for advancing Hodgkin lymphoma; Chemo with ABVD in 2014 advised to f/u heme-onc upon discharge; she has diagnosed with hodgkins lymphoma in 02/2014 but had declined any treatment at time of biopsy, but in 2014 had chemo; her prior echo without effusion and normal EF (06/2015) included in the paper documentation * Hodgkin disease, modular sclerosing type stage II (per 02/18/14 note) * Unclear regarding s/p 2014 regarding chemo/onc; patient has 6 month old child ; unclear [id number] regarding management onc; spoke with patient's cousin Ricardo and he was no aware regarding this time frame; and status disrupting chemo? Patient has 6 month Patient's parents are in [place]. She lives with an unspecified cousin. Her male cousin Ricardo Ellis [phone] was present at the time of my cousin and at present is the primary decision maker for patient. He signed a records release form for [facility] and this was placed in the front of patient chart. Documentation from [facility] is in front of the chart. (hx of biopsy, hospitalization in 2014, and prior echo noted). There is no living will nor advance directive included in the documentation per review Cousmitha Ellis has been instructed by my colleague to find out if patient has any medical records at her residence as well as if there is a Living Will/Advance Directive and bring these things in for our review. Anemia * Likely Secondary to anemia of chronic disease HL, chemotherapy * Iron Studies 05/08/17 showed Total Iron low at 20, TIBC normal at 382, and % Sat low at 5 * Received 3 units PRBCs in total and 1 unit of platelets * Today 6.7 --> 9.2 * Monitor H/H and platelets History of Asthma * Albuterol Q6 prn dyspnea * Mucinex 600 mg PO BID * Promethazine with codeine 5 ml PO Q4H prn * Dr. Yanely cardoso consulted, help appreciated Hx of Sinus Tachycardia with Elevated Troponin on Previous admission This admission: * Sinus tachycardia 2/2 anemia * CTA: NO PE Prior admission: * Firmware Software Verification Engineer Dr. Joya * SVT on 05/28 * Sinus tachycardia * Ordered for repeat echo and chest xray PA and lateral-->negative for acute findings * 2D Echocardiogram (05/07/17): EF: 60-70% systolic (official report available in the chart) * CT Chest: no PE (from 05/09/17) Prophylatic Measures * PT/OT EVAL: not performed due to neutropenia, plt * Felting Machine Operator referral * Started on regular diet as requested by patient DW Renny Antony DO, PGY-1 <Miracle Richter V - Last Filed: 07/11/17 15:02> Objective - Vital Signs/Intake and Output Vital Signs (last 24 hours): Temp Pulse Resp BP Pulse Ox 98.3 F 97 H 18 105/65 100 06/14/17 15:00 06/14/17 15:00 06/14/17 15:00 06/14/17 15:00 06/14/17 15:00 - Labs Labs: 06/14/17 06:54 06/14/17 06:54 PT 18.2 SECONDS (9.7-12.2) H 06/06/17 13:04 INR 1.6 06/06/17 13:04 APTT 30 SECONDS (21-34) 06/06/17 13:04 Attending/Attestation - Attestation I have personally seen and examined this patient.: Yes I have fully participated in the care of the patient.: Yes I have reviewed all pertinent clinical information, including history, physical exam and plan: Yes Notes (Text): This is late computer entry for 06/08/17. Patient seen, examined, and case discussed with day-time resident. Patient has completed 3 units of PRBC total and 1 unit of platelets, hemoglobin has risen appropriately. Will continue IV antibiotics to cover for pneumonia Electrolytes repleted Pulm, heme-onc, and infectious disease on board-->appreciate recommendations. Assessment/Plan 1) Neutropenic Fever * Tmax 102.2, neutropenic; infection: pneumonia * Dr. James Blackwell heme/onc consulted, help appreciated. * Dr. Marie POLK consulted, help appreciated. * In the Ed, given one dose of GranixPatient received 1300mL NS bolus in ED. Patient given an additional of 1.5 liters of NS bolus. * CXR (06/06): Right-sided MediPort extends expected location of the cavoatrial junction.Patchy opacity seen adjacent to the MediPort hub, possibly atelectasis or consolidation ; nodule cannot be excluded. Right hilar/perihilar opacity may also reflect infiltrate. Mild left basilar atelectasis.Probable bilateral tiny pleural effusions. Mild cardiomegaly. * CTA chest (06/06): No pulmonary Embolism noted. Compared to a prior CT of 2016, development of multifocal areas of cavitation in the right lung, located in areas of dense consolidation, suspicious for a cavitary pneumonia. Fungal or mycobacterial pneumonia could have this appearance. The overall degree of consolidation in the right lung appears decreased, however. - Otherwise, no obvious new, acute findings. No evidence of pulmonary embolism. - Stable appearance of a large 7 cm cavitary lesion in the right upper lobe. - Grossly stable appearance of extensive, infiltrative soft tissue in the mediastinum and june bilaterally, greater on the right, suspicious for infiltrative lymphadenopathy. This causes narrowing of the airways on the right. - Moderate right pleural effusion, mildly decreased in size. * Procal: 3.33 * Mycoplasma, rapid flu, rapid strep test - NEGATIVE * F/u Urine Legionella * Started on: * Maintenance fluids: NS 100cc/hr * Merrem 1 gm IV Q8H * Vancomycin 500 mg IV daily * Tylenol PRN 2) Hx of Hodgkin's Lymphoma with Right Chest Port * Heme-Onc: James Blackwell on the case Previous records from prior admission: * Per heme-onc, bx from last admission confirms classical Hodgkin's Lymphoma from lymph node biopsy * Patient was started on ICE regimen chemotherapy per heme-onc last admission, on prophylaxis for tumor lysis. Will need outpatient bone marrow transplant evaluation. * ICE Regimen: * Chemotherapy regimen (hand written chemo orders in the chart) * Etoposide 150mg IV X1 (05/24-05/26) * Carboplatin 700mg X1 (05/25) * Ifosfomide 7500mg X1 (05/25) * Mesna 7500mg IV (05/25) 3) Anemia of Chronic Disease * Heme-onc on board->help appreciated * Likely Secondary to anemia of chronic disease HL (Hodgkin's lymphoma), hx of chemotherapy * Iron Studies 05/08/17 showed Total Iron low at 20, TIBC normal at 382, and % Sat low at 5 * Patient transfused 3 unit PRBC total and 1 unit platelets total during this admission * Monitor H/H 4) History of Asthma * Albuterol Q6 prn dyspnea * Mucinex 600 mg PO BID * Promethazine with codeine 5 ml PO Q4H prn * Dr. Yaneyl cardoso consulted, help appreciated 5) Hx of Sinus Tachycardia * multifactorial etiology: anemia, malignancy and infection * Rule out pulmonary embolism * No pneumothorax noted on repeat CT scan; CT scan ruled out PE * 2D Echocardiogram (05/07/17): EF: 60-70% systolic (official report available in the chart) 6) Prophylactic Measures * PT/OT EVAL * Felting Machine Operator referral * Diet as tolerated by patient * No chemical anticoagulation secondary to thrombocytopenia
[2017-06-08 08:20] LABS: BASO % 0.1 % (0.0-2.0); HEMATOCRIT 27.7 % (34.0-47.0); MONO # 0.6 K/uL (0.0-0.8); NRBC % 0.1 % (0.0-2.0)
[2017-06-08 08:27] LABS: EOS % 0.1 % (0.0-4.0); LYMPH # 0.5 K/uL (1.0-4.3); LYMPH % 22.4 % (20.0-40.0); MEAN CORPUSCULAR HEMOGLOBIN 25.5 pg (27.0-31.0); MEAN PLATELET VOLUME 11.8 fL (7.2-11.7); MONO % 29.2 % (0.0-10.0); RED CELL DISTRIBUTION WIDTH 18.9 % (11.5-14.5)
[2017-06-08 08:30] LABS: MEAN CELL VOLUME 77.2 fL (81.0-99.0); PLATELET COUNT 13 K/uL (130-400); WHITE BLOOD COUNT 2.1 K/uL (4.8-10.8)
[2017-06-08 08:36] LABS: CHLORIDE 102 mmol/L (98-107); SODIUM 139 mmol/L (132-148)
[2017-06-08 08:38] LABS: ALB/GLOB RATIO 0.9 (1.0-2.1); ALKALINE PHOSPHATASE 62 U/L (38-126); AST/SGOT 18 U/L (14-36); CARBON DIOXIDE 25 mmol/L (22-30); GFR AFRICAN-AMERICAN > 60; TOTAL PROTEIN 5.8 g/dL (6.3-8.3)
[2017-06-08 08:39] LABS: ALT/SGPT 58 U/L (9-52); BLOOD UREA NITROGEN 5 mg/dL (7-17); CALCIUM 8.4 mg/dl (8.6-10.4); GLUCOSE,RANDOM 77 mg/dL (65-105); MAGNESIUM 1.6 mg/dL (1.6-2.3); PHOSPHOROUS 3.6 mg/dL (2.5-4.5)
[2017-06-08 09:21] LABS: NEUTROPHIL 44 % (50-75); TOTAL CELLS COUNTED 100
[2017-06-08] MEDS: Potassium Chloride 20 mEq/15 ml LIQ UD PO SCH (10:34)
[2017-06-08] MEDS: Potassium & Sodium Phosphate PO SCH (10:34)
[2017-06-08] MEDS: guaiFENesin 600 mg ER Tab PO SCH ×2 (10:35→19:28)
--- NOTE | 2017-06-08 10:45 | CP.PCM.PN ---
Subjective - Date & Time of Evaluation Date of Evaluation: 06/08/17 Time of Evaluation: 10:43 - Subjective Subjective: Patient was seen and examined at bedside in no acute distress. Patient reports feeling better and tolerating her diet. 12-point review of systems otherwise negative. Objective - Vital Signs/Intake and Output Vital Signs (last 24 hours): Temp Pulse Resp BP Pulse Ox 98 F 65 19 98/60 L 97 06/08/17 08:00 06/08/17 08:00 06/08/17 08:00 06/08/17 08:00 06/08/17 08:00 Intake and Output: 06/08/17 06/08/17 06:59 18:59 Intake Total 1425 Balance 1425 - Medications Medications: Current Medications Acetaminophen (Tylenol 325mg Tab) 650 mg PO Q6 PRN PRN Reason: Fever >100.4 F Albuterol (Ventolin Hfa 90 Mcg/Actuation (8 G)) 1 puff INH RQ6 PRN PRN Reason: Shortness of Breath Guaifenesin (Mucinex La) 600 mg PO BID [facility] Last Admin: 06/08/17 10:35 Dose: 600 mg Sodium Chloride (Sodium Chloride 0.9%) 1,000 mls @ 100 mls/hr IV .Q10H [facility] Last Admin: 06/07/17 21:26 Dose: Not Given Meropenem 1 gm/ Sodium (Chloride) 100 mls @ 100 mls/hr IVPB Q8H [facility] Last Admin: 06/08/17 10:35 Dose: 100 mls/hr Vancomycin/Sodium Chloride (Vancocin) 1 gm in 200 mls @ 66.667 mls/hr IVPB Q12H [facility] Stop: 06/12/17 01:01 Last Admin: 06/08/17 00:51 Dose: 66.667 mls/hr Promethazine HCl/Codeine (Phenergan/Codeine Oral Syrup) 5 ml PO Q4 PRN PRN Reason: Cough - Labs Labs: 06/08/17 08:17 06/08/17 08:17 PT 18.2 SECONDS (9.7-12.2) H 06/06/17 13:04 INR 1.6 06/06/17 13:04 APTT 30 SECONDS (21-34) 06/06/17 13:04 - Constitutional Appears: Cachectic - Head Exam Head Exam: ATRAUMATIC, NORMAL INSPECTION - Eye Exam Eye Exam: EOMI - ENT Exam ENT Exam: Mucous Membranes Moist - Respiratory Exam Respiratory Exam: Decreased Breath Sounds, Rhonchi, Wheezes. absent: Clear to Ausculation Bilateral, Respiratory Distress - Cardiovascular Exam Cardiovascular Exam: Tachycardia, +S1, +S2 - GI/Abdominal Exam GI & Abdominal Exam: Soft, Normal Bowel Sounds. absent: Distended - Neurological Exam Neurological Exam: Alert, Awake, Oriented x3 - Psychiatric Exam Psychiatric exam: Normal Affect, Normal Mood - Skin Skin Exam: Dry, Intact, Normal Color, Warm Assessment and Plan (1) Neutropenic fever Assessment & Plan: Continue empiric antibiotics Maurice culture Status: Acute (2) Pancytopenia Assessment & Plan: Growth factor support discontinued, ANC is >500 Transfusion support PRN. Status: Acute (3) Hodgkin lymphoma Assessment & Plan: On salvage ICE. Will need bone marrow transplant evaluation as outpatient. Status: Acute
[2017-06-08] MEDS: Sodium Chloride 0.9% 1,000 ML IV SCH (13:24)
[2017-06-09] MEDS: Vancomycin 1 gm/NS 200 ml 1 GM/200 ML BAG IVPB SCH ×2 (00:03→13:10)
[2017-06-09] MEDS: Promethazine/Cod 6.25mg-10mg/5ml Syr UD PO PRN ×3 (00:07→18:07)
[2017-06-09] MEDS: Meropenem 1 GM in Sodium Chloride 0.9% 100 ML IVPB SCH ×3 (02:32→18:06)
[2017-06-09] MEDS: Sodium Chloride 0.9% 1,000 ML IV SCH ×3 (03:47→16:08)
[2017-06-09 07:44] LABS: LYMPH # 0.6 K/uL (1.0-4.3); MEAN CORPUSCULAR HEMOGLOBIN 25.9 pg (27.0-31.0); MONO # 0.8 K/uL (0.0-0.8); WHITE BLOOD COUNT 3.5 K/uL (4.8-10.8)
[2017-06-09 07:52] LABS: CHLORIDE 101 mmol/L (98-107); POTASSIUM 3.4 mmol/L (3.6-5.2); SODIUM 138 mmol/L (132-148)
[2017-06-09 07:54] LABS: AST/SGOT 22 U/L (14-36); BASO % 0.2 % (0.0-2.0); BILIRUBIN,TOTAL 0.7 mg/dL (0.2-1.3); CARBON DIOXIDE 26 mmol/L (22-30); EOS % 0.1 % (0.0-4.0); GFR AFRICAN-AMERICAN > 60; HEMATOCRIT 28.5 % (34.0-47.0); LYMPH % 16.8 % (20.0-40.0); MEAN CELL VOLUME 77.6 fL (81.0-99.0); MEAN CORPUSCULAR HGB CONC 33.3 g/dL (33.0-37.0); MEAN PLATELET VOLUME 13.1 fL (7.2-11.7); RED CELL DISTRIBUTION WIDTH 19.3 % (11.5-14.5)
[2017-06-09 07:55] LABS: ALB/GLOB RATIO 0.9 (1.0-2.1); ALKALINE PHOSPHATASE 60 U/L (38-126); ALT/SGPT 60 U/L (9-52); BLOOD UREA NITROGEN 3 mg/dL (7-17); CALCIUM 8.1 mg/dl (8.6-10.4); GLUCOSE,RANDOM 79 mg/dL (65-105); PHOSPHOROUS 3.2 mg/dL (2.5-4.5); TOTAL PROTEIN 5.7 g/dL (6.3-8.3)
[2017-06-09 07:56] LABS: MAGNESIUM 1.4 mg/dL (1.6-2.3)
[2017-06-09 07:58] LABS: PLATELET COUNT 14 K/uL (130-400)
[2017-06-09 08:38] LABS: MYELOCYTE 1 % (0-0); NEUTROPHIL 56 % (50-75); TOTAL CELLS COUNTED 100
[2017-06-09] MEDS: guaiFENesin 600 mg ER Tab PO SCH ×2 (09:34→18:06)
--- NOTE | 2017-06-09 10:41 | CP.PCM.PN ---
Subjective - Date & Time of Evaluation Date of Evaluation: 06/09/17 Time of Evaluation: 10:41 - Subjective Subjective: Patient was seen and examined at bedside in no acute distress. Patient reports feeling better today, eating and drinking with no problems. She states she has not had a bowel movement in 2 days. Patient denies having chest pain, abdominal pain, nausea, vomiting, and fevers. Objective - Vital Signs/Intake and Output Vital Signs (last 24 hours): Temp Pulse Resp BP Pulse Ox 98.5 F 117 H 18 111/76 97 06/09/17 08:00 06/09/17 08:00 06/09/17 08:00 06/09/17 08:00 06/09/17 08:00 Intake and Output: 06/09/17 06/09/17 06:59 18:59 Intake Total 1090 Balance 1090 - Medications Medications: Current Medications Acetaminophen (Tylenol 325mg Tab) 650 mg PO Q6 PRN PRN Reason: Fever >100.4 F Albuterol (Ventolin Hfa 90 Mcg/Actuation (8 G)) 1 puff INH RQ6 PRN PRN Reason: Shortness of Breath Allopurinol (Zyloprim) 300 mg PO DAILY [facility] Last Admin: 06/09/17 09:34 Dose: 300 mg Docusate Sodium (Colace) 100 mg PO TID [facility] Last Admin: 06/09/17 09:34 Dose: 100 mg Guaifenesin (Mucinex La) 600 mg PO BID [facility] Last Admin: 06/09/17 09:34 Dose: 600 mg Sodium Chloride (Sodium Chloride 0.9%) 1,000 mls @ 100 mls/hr IV .Q10H [facility] Last Admin: 06/09/17 06:48 Dose: 100 mls/hr Meropenem 1 gm/ Sodium (Chloride) 100 mls @ 100 mls/hr IVPB Q8H [facility] Last Admin: 06/09/17 09:39 Dose: 100 mls/hr Vancomycin/Sodium Chloride (Vancocin) 1 gm in 200 mls @ 66.667 mls/hr IVPB Q12H [facility] Stop: 06/12/17 01:01 Last Admin: 06/09/17 00:03 Dose: 66.667 mls/hr Potassium Chloride (Potassium Chloride 20 Meq/100 Ml) 20 meq in 100 mls @ 50 mls/hr IVPB ONCE ONE Stop: 06/09/17 11:21 Last Admin: 06/09/17 09:40 Dose: 50 mls/hr Promethazine HCl/Codeine (Phenergan/Codeine Oral Syrup) 5 ml PO Q4 PRN PRN Reason: Cough Last Admin: 06/09/17 09:34 Dose: 5 ml - Labs Labs: 06/09/17 07:37 06/09/17 07:37 PT 18.2 SECONDS (9.7-12.2) H 06/06/17 13:04 INR 1.6 06/06/17 13:04 APTT 30 SECONDS (21-34) 06/06/17 13:04 - Head Exam Head Exam: ATRAUMATIC, NORMAL INSPECTION - Eye Exam Eye Exam: EOMI - ENT Exam ENT Exam: Mucous Membranes Moist - Respiratory Exam Respiratory Exam: Decreased Breath Sounds, Rhonchi, Wheezes, NORMAL BREATHING PATTERN. absent: Clear to Ausculation Bilateral, Respiratory Distress - Cardiovascular Exam Cardiovascular Exam: Tachycardia, +S1, +S2 - GI/Abdominal Exam GI & Abdominal Exam: Soft, Normal Bowel Sounds. absent: Tenderness - Extremities Exam Extremities Exam: absent: Pedal Edema, Tenderness - Neurological Exam Neurological Exam: Alert, Awake, Oriented x3 - Psychiatric Exam Psychiatric exam: Normal Affect, Normal Mood - Skin Skin Exam: Dry, Intact, Normal Color, Warm Assessment and Plan (1) Neutropenic fever Assessment & Plan: Continue empiric antibiotics Maurice culture Status: Acute (2) Pancytopenia Assessment & Plan: Growth factor support discontinued, ANC is >500 Transfusion support PRN. Status: Acute (3) Hodgkin lymphoma Assessment & Plan: On salvage ICE. Will need bone marrow transplant evaluation as outpatient. Status: Acute
[2017-06-09] MEDS ORDERED: Bisacodyl 5mg EC Tab PO ONE ×2 (11:03→14:00)
[2017-06-09] MEDS: Magnesium Sulfate 1 gm in D5W 1 GM/100 ML BAG IVPB SCH ×2 (13:08→13:51)
[2017-06-09] MEDS ORDERED: Magnesium Sulfate 1 gm in D5W 1 GM/100 ML BAG IVPB SCH (14:00)
--- NOTE | 2017-06-09 14:04 | CP.PCM.PN ---
Subjective - Date & Time of Evaluation Date of Evaluation: 06/09/17 Time of Evaluation: 08:00 - Subjective Subjective: EVENTS NOTED COUNTS IMPROVING Objective - Vital Signs/Intake and Output Vital Signs (last 24 hours): Temp Pulse Resp BP Pulse Ox 98.5 F 117 H 18 111/76 97 06/09/17 08:00 06/09/17 08:00 06/09/17 08:00 06/09/17 08:00 06/09/17 08:00 Intake and Output: 06/09/17 06/09/17 06:59 18:59 Intake Total 1090 Balance 1090 - Medications Medications: Current Medications Acetaminophen (Tylenol 325mg Tab) 650 mg PO Q6 PRN PRN Reason: Fever >100.4 F Albuterol (Ventolin Hfa 90 Mcg/Actuation (8 G)) 1 puff INH RQ6 PRN PRN Reason: Shortness of Breath Allopurinol (Zyloprim) 300 mg PO DAILY [facility] Last Admin: 06/09/17 09:34 Dose: 300 mg Docusate Sodium (Colace) 100 mg PO TID [facility] Last Admin: 06/09/17 13:50 Dose: 100 mg Guaifenesin (Mucinex La) 600 mg PO BID [facility] Last Admin: 06/09/17 09:34 Dose: 600 mg Sodium Chloride (Sodium Chloride 0.9%) 1,000 mls @ 100 mls/hr IV .Q10H [facility] Last Admin: 06/09/17 06:48 Dose: 100 mls/hr Meropenem 1 gm/ Sodium (Chloride) 100 mls @ 100 mls/hr IVPB Q8H [facility] Last Admin: 06/09/17 09:39 Dose: 100 mls/hr Vancomycin/Sodium Chloride (Vancocin) 1 gm in 200 mls @ 66.667 mls/hr IVPB Q12H [facility] Stop: 06/12/17 01:01 Last Admin: 06/09/17 13:10 Dose: 66.667 mls/hr Magnesium Sulfate/Dextrose (Magnesium Sulfate 1 Gm/100 Ml D5w) 1 gm in 100 mls @ 300 mls/hr IVPB Q30M [facility] Stop: 06/09/17 14:19 Last Admin: 06/09/17 13:51 Dose: 300 mls/hr Promethazine HCl/Codeine (Phenergan/Codeine Oral Syrup) 5 ml PO Q4 PRN PRN Reason: Cough Last Admin: 06/09/17 09:34 Dose: 5 ml - Labs Labs: 06/09/17 07:37 06/09/17 07:37 PT 18.2 SECONDS (9.7-12.2) H 06/06/17 13:04 INR 1.6 06/06/17 13:04 APTT 30 SECONDS (21-34) 06/06/17 13:04 - Constitutional Appears: Non-toxic, Chronically Ill - Head Exam Head Exam: NORMOCEPHALIC - Eye Exam Eye Exam: PERRL - ENT Exam ENT Exam: Mucous Membranes Dry - Neck Exam Neck Exam: absent: Lymphadenopathy - Respiratory Exam Respiratory Exam: Decreased Breath Sounds - Cardiovascular Exam Cardiovascular Exam: REGULAR RHYTHM - GI/Abdominal Exam GI & Abdominal Exam: Distended, Soft - Rectal Exam Rectal Exam: Deferred - Exam Exam: NORMAL INSPECTION - Extremities Exam Extremities Exam: absent: Pedal Edema - Back Exam Back Exam: absent: CVA tenderness (L), CVA tenderness (R) - Neurological Exam Neurological Exam: Alert, Awake, Oriented x3 - Psychiatric Exam Psychiatric exam: Depressed Assessment and Plan (1) Neutropenic fever Status: Acute (2) Pancytopenia Status: Acute (3) Hodgkin lymphoma Status: Acute
--- NOTE | 2017-06-09 17:37 | CP.PCM.PN ---
Addendum entered and electronically signed by Vania Cabrera DO 06/09/17 17:45: morphine 2 mg Q6H PRN pain added for pain because patient was not tolerating pain well in the afternoon Original Note: <Vania Cabrera - Last Filed: 06/09/17 17:43> Subjective - Date & Time of Evaluation Date of Evaluation: 06/09/17 Time of Evaluation: 17:35 - Subjective Subjective: Internal Medicine progress note for Dr. Richter Patient seen and examined at bedside. Patient has not had BM for [address] Salazar saw the patient today. Noted counts are improving. Patient is having difficulty breathing, Nasal Cannula 2 L. Objective - Vital Signs/Intake and Output Vital Signs (last 24 hours): Temp Pulse Resp BP Pulse Ox 98.5 F 107 H 18 111/76 98 06/09/17 08:00 06/09/17 16:02 06/09/17 08:00 06/09/17 08:00 06/09/17 16:02 Intake and Output: 06/09/17 06/09/17 06:59 18:59 Intake Total 1090 Balance 1090 - Medications Medications: Current Medications Acetaminophen (Tylenol 325mg Tab) 650 mg PO Q6 PRN PRN Reason: Fever >100.4 F Albuterol (Ventolin Hfa 90 Mcg/Actuation (8 G)) 1 puff INH RQ6 PRN PRN Reason: Shortness of Breath Allopurinol (Zyloprim) 300 mg PO DAILY [facility] Last Admin: 06/09/17 09:34 Dose: 300 mg Docusate Sodium (Colace) 100 mg PO TID [facility] Last Admin: 06/09/17 13:50 Dose: 100 mg Guaifenesin (Mucinex La) 600 mg PO BID [facility] Last Admin: 06/09/17 09:34 Dose: 600 mg Sodium Chloride (Sodium Chloride 0.9%) 1,000 mls @ 100 mls/hr IV .Q10H [facility] Last Admin: 06/09/17 16:08 Dose: Not Given Meropenem 1 gm/ Sodium (Chloride) 100 mls @ 100 mls/hr IVPB Q8H [facility] Last Admin: 06/09/17 09:39 Dose: 100 mls/hr Vancomycin/Sodium Chloride (Vancocin) 1 gm in 200 mls @ 66.667 mls/hr IVPB Q12H [place] Stop: 06/12/17 01:01 Last Admin: 06/09/17 13:10 Dose: 66.667 mls/hr Morphine Sulfate (Morphine) 2 mg IVP Q6H PRN PRN Reason: Pain, moderate (4-7) Promethazine HCl/Codeine (Phenergan/Codeine Oral Syrup) 5 ml PO Q4 PRN PRN Reason: Cough Last Admin: 06/09/17 09:34 Dose: 5 ml - Labs Labs: 06/09/17 07:37 06/09/17 07:37 PT 18.2 SECONDS (9.7-12.2) H 06/06/17 13:04 INR 1.6 06/06/17 13:04 APTT 30 SECONDS (21-34) 06/06/17 13:04 - Constitutional Appears: Non-toxic - Head Exam Head Exam: NORMAL INSPECTION - Eye Exam Eye Exam: EOMI, Normal appearance - ENT Exam ENT Exam: Mucous Membranes Moist - Neck Exam Neck Exam: Full ROM - Respiratory Exam Respiratory Exam: Accessory Muscle Use, Decreased Breath Sounds, Rhonchi - Cardiovascular Exam Cardiovascular Exam: Tachycardia - GI/Abdominal Exam GI & Abdominal Exam: Soft, Tenderness. absent: Diminished Bowel Sounds Additional comments: patient states she feels discomfort on palpation due to not passing stool for two days - Extremities Exam Extremities Exam: absent: Pedal Edema - Neurological Exam Neurological Exam: Alert, Awake, Oriented x3 - Psychiatric Exam Psychiatric exam: Normal Affect, Normal Mood - Skin Skin Exam: Dry, Intact Additional comments: port in place on right chest. no erythema, induration, drainage Assessment and Plan - Assessment and Plan (Free Text) Assessment: Plan: Neutropenic Fever Tmax 102.2, currently afebrile Dr. Blackwell heme/onc consulted, help appreciated Dr. Marie POLK consulted, help appreciated Patient given one dose of Granix in the ED.Patient received 1300mL NS bolus in ED.Patient given an additional of 1.5 liters of NS bolus. CXR (06/06): Right-sided MediPort extends expected location of the cavoatrial junction.Patchy opacity seen adjacent to the MediPort hub, possibly atelectasis or consolidation ; nodule cannot be excluded. Right hilar/perihilar opacity may also reflect infiltrate. Mild left basilar atelectasis.Probable bilateral tiny pleural effusions. Mild cardiomegaly. CTA chest (06/06): No pulmonary Embolism noted. Compared to a prior CT of 2016, development of multifocal areas of cavitation in the right lung, located in areas of dense consolidation, suspicious for a cavitary pneumonia. Fungal or mycobacterial pneumonia could have this appearance. The overall degree of consolidation in the right lung appears decreased, however. - Otherwise, no obvious new, acute findings. No evidence of pulmonary embolism. - Stable appearance of a large 7 cm cavitary lesion in the right upper lobe. - Grossly stable appearance of extensive, infiltrative soft tissue in the mediastinum and june bilaterally, greater on the right, suspicious for infiltrative lymphadenopathy. This causes narrowing of the airways on the right. - Moderate right pleural effusion, mildly decreased in size. Procal: 3.33 06/09 Neutrophils 13, Bands 10, WBC trending up 3.5 Mycoplasma, rapid flu, rapid strep test - NEGATIVE F/u Urine Legionella continue with: * Maintenance fluids: NS 100cc/hr * Meropenem 1 gm IV Q8H (started on 06/06) * Vancomycin 500 mg IV Q12 (started on 06/07) * Tylenol PRN Hx of Hodgkin's Lymphoma with Right Chest Port * Heme-Onc: [facility] on the case Previous records from prior admission: * Per heme-onc, need tissue biopsy for re-diagnosis if this is the same cancer, previously diagnosed for 2013-->f/u IR lymph nody biopsy (05/18/17)-->Pathology--> classical Hodgkin's Lymphoma (Discussed with Dr. Welch, pathology) from lymph node biopsy; discussed with ICU and Heme-Onc setup for inpatient chemotherapy-->patient start chemotherapy 05/24 on the ICE Regimen * Patient is currently on ICE Regimen for classical Hodgkin's lymphoma since ; on prophylaxis for tumor lysis; will need outpatient bone marrow transplant evaluation. Completed 1st week of chemotherapy. * Chemotherapy regimen (hand written chemo orders in the chart) * Etoposide 150mg IV X1 (05/24-05/26) * Carboplatin 700mg X1 (05/25) * Ifosfomide 7500mg X1 (05/25) * Mesna 7500mg IV (05/25) Prior documentation: * Per [facility] documentation: untreated Hodgkin lymphoma w new mass on the left side of the neck for advancing Hodgkin lymphoma; Chemo with ABVD in 2014 advised to f/u heme-onc upon discharge; she has diagnosed with hodgkins lymphoma in 02/2014 but had declined any treatment at time of biopsy, but in 2014 had chemo; her prior echo without effusion and normal EF (06/2015) included in the paper documentation * Hodgkin disease, modular sclerosing type stage II (per 02/18/14 note) * Unclear regarding s/p 2014 regarding chemo/onc; patient has 6 month old child ; unclear [id number] regarding management onc; spoke with patient's cousin Ricardo and he was no aware regarding this time frame; and status disrupting chemo? Patient has 6 month Patient's parents are in [place]. She lives with an unspecified cousin. Her male cousin Ricardo Ellis [phone] was present at the time of my cousin and at present is the primary decision maker for patient. He signed a records release form for [facility] and this was placed in the front of patient chart. Documentation from [facility] is in front of the chart. (hx of biopsy, hospitalization in 2014, and prior echo noted). There is no living will nor advance directive included in the documentation per review Cousin Ricardo Ellis has been instructed by my colleague to find out if patient has any medical records at her residence as well as if there is a Living Will/Advance Directive and bring these things in for our review. Anemia * Likely Secondary to anemia of chronic disease HL, chemotherapy * Iron Studies 05/08/17 showed Total Iron low at 20, TIBC normal at 382, and % Sat low at 5 * 06/08 Received 3 units PRBCs in total and 1 unit of platelets * 9.1->9.5 * Monitor H/H and platelets History of Asthma * Albuterol Q6 prn dyspnea * Mucinex 600 mg PO BID * Promethazine with codeine 5 ml PO Q4H prn * Dr. Yanely cardoso consulted, help appreciated Hx of Sinus Tachycardia with Elevated Troponin on Previous admission This admission: * Sinus tachycardia 2/2 anemia * CTA: NO PE Prior admission: * Stage Electric[employer] Dr. Joya * SVT on 05/28 * Sinus tachycardia * Ordered for repeat echo and chest xray PA and lateral-->negative for acute findings * 2D Echocardiogram (05/07/17): EF: 60-70% systolic (official report available in the chart) * CT Chest: no PE (from 05/09/17) Prophylatic Measures * PT/OT EVAL: not performed due to neutropenia, plt * Computer Applications Developer referral * Started on regular diet as requested by patient DW Vania Antony, DO PGY1 <Miracle Richter V - Last Filed: 07/11/17 15:07> Objective - Vital Signs/Intake and Output Vital Signs (last 24 hours): Temp Pulse Resp BP Pulse Ox 98.3 F 97 H 18 105/65 100 06/14/17 15:00 06/14/17 15:00 06/14/17 15:00 06/14/17 15:00 06/14/17 15:00 - Labs Labs: 06/14/17 06:54 06/14/17 06:54 PT 18.2 SECONDS (9.7-12.2) H 06/06/17 13:04 INR 1.6 06/06/17 13:04 APTT 30 SECONDS (21-34) 06/06/17 13:04 Attending/Attestation - Attestation I have personally seen and examined this patient.: Yes I have fully participated in the care of the patient.: Yes I have reviewed all pertinent clinical information, including history, physical exam and plan: Yes Notes (Text): This is late computer entry for 06/09/17. Patient seen, examined, and case discussed with day-time resident. Patient reports constipation at bedside, given ducolax, monitor for bowel movement. White count and hemoglobin improving. Will continue IV antibiotic to cover for pneumonia Electrolytes repleted Assessment/Plan 1) Neutropenic Fever * Tmax 102.2, neutropenic; infection: pneumonia * Dr. James Blackwell heme/onc consulted, help appreciated. * Dr. Salazar ID consulted, help appreciated. * In the Ed, given one dose of GranixPatient received 1300mL NS bolus in ED. Patient given an additional of 1.5 liters of NS bolus. * CXR (06/06): Right-sided MediPort extends expected location of the cavoatrial junction.Patchy opacity seen adjacent to the MediPort hub, possibly atelectasis or consolidation ; nodule cannot be excluded. Right hilar/perihilar opacity may also reflect infiltrate. Mild left basilar atelectasis.Probable bilateral tiny pleural effusions. Mild cardiomegaly. * CTA chest (06/06): No pulmonary Embolism noted. Compared to a prior CT of 2016, development of multifocal areas of cavitation in the right lung, located in areas of dense consolidation, suspicious for a cavitary pneumonia. Fungal or mycobacterial pneumonia could have this appearance. The overall degree of consolidation in the right lung appears decreased, however. - Otherwise, no obvious new, acute findings. No evidence of pulmonary embolism. - Stable appearance of a large 7 cm cavitary lesion in the right upper lobe. - Grossly stable appearance of extensive, infiltrative soft tissue in the mediastinum and june bilaterally, greater on the right, suspicious for infiltrative lymphadenopathy. This causes narrowing of the airways on the right. - Moderate right pleural effusion, mildly decreased in size. * Procal: 3.33 * Mycoplasma, rapid flu, rapid strep test - NEGATIVE * F/u Urine Legionella * Started on: * Maintenance fluids: NS 100cc/hr * Merrem 1 gm IV Q8H * Vancomycin 500 mg IV daily * Tylenol PRN 2) Hx of Hodgkin's Lymphoma with Right Chest Port * Heme-Onc: [facility] on the case Previous records from prior admission: * Per heme-onc, bx from last admission confirms classical Hodgkin's Lymphoma from lymph node biopsy * Patient was started on ICE regimen chemotherapy per heme-onc last admission, on prophylaxis for tumor lysis. Will need outpatient bone marrow transplant evaluation. * ICE Regimen: * Chemotherapy regimen (hand written chemo orders in the chart) * Etoposide 150mg IV X1 (05/24-05/26) * Carboplatin 700mg X1 (05/25) * Ifosfomide 7500mg X1 (05/25) * Mesna 7500mg IV (05/25) 3) Anemia of Chronic Disease * Heme-onc on board->help appreciated * Likely Secondary to anemia of chronic disease HL (Hodgkin's lymphoma), hx of chemotherapy * Iron Studies 05/08/17 showed Total Iron low at 20, TIBC normal at 382, and % Sat low at 5 * Patient transfused 3 unit PRBC total and 1 unit platelets total during this admission * Monitor H/H 4) History of Asthma * Albuterol Q6 prn dyspnea * Mucinex 600 mg PO BID * Promethazine with codeine 5 ml PO Q4H prn * Dr. Yanely cardoso consulted, help appreciated 5) Hx of Sinus Tachycardia * multifactorial etiology: anemia, malignancy and infection * Rule out pulmonary embolism * No pneumothorax noted on repeat CT scan; CT scan ruled out PE * 2D Echocardiogram (05/07/17): EF: 60-70% systolic (official report available in the chart) 6) Prophylactic Measures * PT/OT EVAL * Computer Applications Developer referral * Diet as tolerated by patient * No chemical anticoagulation secondary to thrombocytopenia
[2017-06-10] MEDS: Vancomycin 1 gm/NS 200 ml 1 GM/200 ML BAG IVPB SCH ×2 (00:13→13:37)
[2017-06-10] MEDS: Meropenem 1 GM in Sodium Chloride 0.9% 100 ML IVPB SCH ×3 (02:39→17:57)
[2017-06-10] MEDS: Sodium Chloride 0.9% 1,000 ML IV SCH ×3 (02:44→19:30)
[2017-06-10 08:36] LABS: BASO % 0.2 % (0.0-2.0); EOS % 0.1 % (0.0-4.0); HEMATOCRIT 26.5 % (34.0-47.0); LYMPH # 0.8 K/uL (1.0-4.3); LYMPH % 21.2 % (20.0-40.0); MEAN CELL VOLUME 78.9 fL (81.0-99.0); MEAN CORPUSCULAR HEMOGLOBIN 26.5 pg (27.0-31.0); MEAN CORPUSCULAR HGB CONC 33.6 g/dL (33.0-37.0); MONO # 0.9 K/uL (0.0-0.8); MONO % 23.8 % (0.0-10.0); NRBC % 0.3 % (0.0-2.0); WHITE BLOOD COUNT 3.9 K/uL (4.8-10.8)
[2017-06-10 08:39] LABS: CHLORIDE 96 mmol/L (98-107)
[2017-06-10 08:40] LABS: POTASSIUM 3.6 mmol/L (3.6-5.2); SODIUM 136 mmol/L (132-148)
[2017-06-10 08:42] LABS: ALB/GLOB RATIO 0.9 (1.0-2.1); ALKALINE PHOSPHATASE 160 U/L (38-126); ALT/SGPT 73 U/L (9-52); AST/SGOT 56 U/L (14-36); BILIRUBIN,TOTAL 1.4 mg/dL (0.2-1.3); CARBON DIOXIDE 27 mmol/L (22-30); GFR AFRICAN-AMERICAN > 60; PLATELET COUNT 17 K/uL (130-400); TOTAL PROTEIN 5.5 g/dL (6.3-8.3)
[2017-06-10 08:43] LABS: CALCIUM 7.5 mg/dl (8.6-10.4); GLUCOSE,RANDOM 73 mg/dL (65-105); MAGNESIUM 1.7 mg/dL (1.6-2.3); PHOSPHOROUS 2.9 mg/dL (2.5-4.5)
[2017-06-10 08:44] LABS: BLOOD UREA NITROGEN 2 mg/dL (7-17)
--- NOTE | 2017-06-10 08:47 | CP.PCM.PN ---
<Serenity Waggonera - Last Filed: 06/10/17 10:08> Subjective - Date & Time of Evaluation Date of Evaluation: 06/10/17 Time of Evaluation: 08:00 - Subjective Subjective: Medicine Note for Dr. Richter Patient seen and examined at bedside. Patient reports she has some generalized pain and back pain. Denied fever,chills, headache, chest pain, SOB, abdominal pain, n/v/d/c, or urinary symptoms. Objective - Vital Signs/Intake and Output Vital Signs (last 24 hours): Temp Pulse Resp BP Pulse Ox 98.1 F 99 H 20 101/66 100 06/09/17 23:44 06/09/17 23:44 06/09/17 23:44 06/09/17 23:44 06/09/17 23:44 - Medications Medications: Current Medications Acetaminophen (Tylenol 325mg Tab) 650 mg PO Q6 PRN PRN Reason: Fever >100.4 F Albuterol (Ventolin Hfa 90 Mcg/Actuation (8 G)) 1 puff INH RQ6 PRN PRN Reason: Shortness of Breath Allopurinol (Zyloprim) 300 mg PO DAILY [facility] Last Admin: 06/09/17 09:34 Dose: 300 mg Docusate Sodium (Colace) 100 mg PO TID [facility] Last Admin: 06/09/17 18:06 Dose: 100 mg Guaifenesin (Mucinex La) 600 mg PO BID [facility] Last Admin: 06/09/17 18:06 Dose: 600 mg Sodium Chloride (Sodium Chloride 0.9%) 1,000 mls @ 100 mls/hr IV .Q10H [facility] Last Admin: 06/10/17 02:44 Dose: Not Given Meropenem 1 gm/ Sodium (Chloride) 100 mls @ 100 mls/hr IVPB Q8H [facility] Last Admin: 06/10/17 02:39 Dose: 100 mls/hr Vancomycin/Sodium Chloride (Vancocin) 1 gm in 200 mls @ 66.667 mls/hr IVPB Q12H [facility] Stop: 06/12/17 01:01 Last Admin: 06/10/17 00:13 Dose: 66.667 mls/hr Morphine Sulfate (Morphine) 2 mg IVP Q6H PRN PRN Reason: Pain, moderate (4-7) Last Admin: 06/10/17 06:42 Dose: 2 mg Promethazine HCl/Codeine (Phenergan/Codeine Oral Syrup) 5 ml PO Q4 PRN PRN Reason: Cough Last Admin: 06/09/17 18:07 Dose: 5 ml - Labs Labs: 06/10/17 08:05 06/10/17 08:05 PT 18.2 SECONDS (9.7-12.2) H 06/06/17 13:04 INR 1.6 06/06/17 13:04 APTT 30 SECONDS (21-34) 06/06/17 13:04 - Additional Findings Additional findings: - Constitutional Appears: Non-toxic - Head Exam Head Exam: NORMAL INSPECTION - Eye Exam Eye Exam: EOMI, Normal appearance - ENT Exam ENT Exam: Mucous Membranes Moist - Neck Exam Neck Exam: Full ROM - Respiratory Exam Respiratory Exam: Accessory Muscle Use, Decreased Breath Sounds, Rhonchi - Cardiovascular Exam Cardiovascular Exam: Tachycardia - GI/Abdominal Exam GI & Abdominal Exam: Soft, Tenderness. absent: Diminished Bowel Sounds Additional comments: patient states she feels discomfort on palpation due to not passing stool for two days - Extremities Exam Extremities Exam: absent: Pedal Edema - Neurological Exam Neurological Exam: Alert, Awake, Oriented x3 - Psychiatric Exam Psychiatric exam: Normal Affect, Normal Mood - Skin Skin Exam: Dry, Intact Additional comments: port in place on right chest. no erythema, induration, drainage Assessment and Plan - Assessment and Plan (Free Text) Plan: Neutropenic Fever Tmax 102.2, currently afebrile Dr. Rishi taylor/onc consulted, help appreciated Dr. Marie POLK consulted, help appreciated Patient given one dose of Granix in the ED.Patient received 1300mL NS bolus in ED.Patient given an additional of 1.5 liters of NS bolus. CXR (06/06): Right-sided MediPort extends expected location of the cavoatrial junction.Patchy opacity seen adjacent to the MediPort hub, possibly atelectasis or consolidation ; nodule cannot be excluded. Right hilar/perihilar opacity may also reflect infiltrate. Mild left basilar atelectasis.Probable bilateral tiny pleural effusions. Mild cardiomegaly. CTA chest (06/06): No pulmonary Embolism noted. Compared to a prior CT of 2016, development of multifocal areas of cavitation in the right lung, located in areas of dense consolidation, suspicious for a cavitary pneumonia. Fungal or mycobacterial pneumonia could have this appearance. The overall degree of consolidation in the right lung appears decreased, however. - Otherwise, no obvious new, acute findings. No evidence of pulmonary embolism. - Stable appearance of a large 7 cm cavitary lesion in the right upper lobe. - Grossly stable appearance of extensive, infiltrative soft tissue in the mediastinum and june bilaterally, greater on the right, suspicious for infiltrative lymphadenopathy. This causes narrowing of the airways on the right. - Moderate right pleural effusion, mildly decreased in size. Procal: 3.33 Mycoplasma, rapid flu, rapid strep test - NEGATIVE Continue with: * Maintenance fluids: NS 100cc/hr * Meropenem 1 gm IV Q8H (started on 06/06) * Vancomycin 500 mg IV Q12 (started on 06/07)- f/u vanco trough * Tylenol PRN F/U repeat BLOOD AND URINE CULTURES Hx of Hodgkin's Lymphoma with Right Chest Port * Heme-Onc: [facility] [place] on the case Previous records from prior admission: * Per heme-onc, need tissue biopsy for re-diagnosis if this is the same cancer, previously diagnosed for 2013-->f/u IR lymph nody biopsy (05/18/17)-->Pathology--> classical Hodgkin's Lymphoma (Discussed with Dr. Welch, pathology) from lymph node biopsy; discussed with ICU and Heme-Onc setup for inpatient chemotherapy-->patient start chemotherapy 05/24 on the ICE Regimen * Patient is currently on ICE Regimen for classical Hodgkin's lymphoma since ; on prophylaxis for tumor lysis; will need outpatient bone marrow transplant evaluation. Completed 1st week of chemotherapy. * Chemotherapy regimen (hand written chemo orders in the chart) * Etoposide 150mg IV X1 (05/24-05/26) * Carboplatin 700mg X1 (05/25) * Ifosfomide 7500mg X1 (05/25) * Mesna 7500mg IV (05/25) Prior documentation: * Per [facility] documentation: untreated Hodgkin lymphoma w new mass on the left side of the neck for advancing Hodgkin lymphoma; Chemo with ABVD in 2014 advised to f/u heme-onc upon discharge; she has diagnosed with hodgkins lymphoma in 02/2014 but had declined any treatment at time of biopsy, but in 2014 had chemo; her prior echo without effusion and normal EF (06/2015) included in the paper documentation * Hodgkin disease, modular sclerosing type stage II (per 02/18/14 note) * Unclear regarding s/p 2014 regarding chemo/onc; patient has 6 month old child ; unclear [id number] regarding management onc; spoke with patient's cousin Ricardo and he was no aware regarding this time frame; and status disrupting chemo? Patient has 6 month Patient's parents are in [place]. She lives with an unspecified cousin. Her male cousin Ricardo Ellis [phone] was present at the time of my cousin and at present is the primary decision maker for patient. He signed a records release form for [facility] and this was placed in the front of patient chart. Documentation from [facility] is in front of the chart. (hx of biopsy, hospitalization in 2014, and prior echo noted). There is no living will nor advance directive included in the documentation per review Cousin Ricardo Ellis has been instructed by my colleague to find out if patient has any medical records at her residence as well as if there is a Living Will/Advance Directive and bring these things in for our review. Anemia * Likely Secondary to anemia of chronic disease HL, chemotherapy * Iron Studies 05/08/17 showed Total Iron low at 20, TIBC normal at 382, and % Sat low at 5 * 06/08 Received 3 units PRBCs in total and 1 unit of platelets * Monitor H/H and platelets History of Asthma * Albuterol Q6 prn dyspnea * Mucinex 600 mg PO BID * Promethazine with codeine 5 ml PO Q4H prn * Dr. Yanely cardoso consulted, help appreciated Hx of Sinus Tachycardia with Elevated Troponin on Previous admission This admission: * Sinus tachycardia 2/2 anemia * CTA: NO PE Prior admission: * Dentist Dr. Joya * SVT on 05/28 * Sinus tachycardia * Ordered for repeat echo and chest xray PA and lateral-->negative for acute findings * 2D Echocardiogram (05/07/17): EF: 60-70% systolic (official report available in the chart) * CT Chest: no PE (from 05/09/17) Prophylatic Measures * PT/OT EVAL: not performed due to neutropenia, plt * T[employer] referral * Started on regular diet as requested by patient DW Rosaline Antony DO PGY1 <Miracle Richter V - Last Filed: 07/11/17 15:11> Objective - Vital Signs/Intake and Output Vital Signs (last 24 hours): Temp Pulse Resp BP Pulse Ox 98.3 F 97 H 18 105/65 100 06/14/17 15:00 06/14/17 15:00 06/14/17 15:00 06/14/17 15:00 06/14/17 15:00 - Labs Labs: 06/14/17 06:54 06/14/17 06:54 PT 18.2 SECONDS (9.7-12.2) H 06/06/17 13:04 INR 1.6 06/06/17 13:04 APTT 30 SECONDS (21-34) 06/06/17 13:04 Attending/Attestation - Attestation I have personally seen and examined this patient.: Yes I have fully participated in the care of the patient.: Yes I have reviewed all pertinent clinical information, including history, physical exam and plan: Yes Notes (Text): This is late computer entry for 06/10/17. Patient seen, examined, and case discussed with day-time resident. Patient reports constipation at bedside, given ducolax yesterday, and started on stool softeners Will continue IV antibiotic to cover for pneumonia Cultures repeated yesterday in light of bandemia Assessment/Plan 1) Neutropenic Fever * Tmax 102.2, neutropenic; infection: pneumonia and abnormal urine culture * Dr. James Blackwell heme/onc consulted, help appreciated. * Dr. Salazar ID consulted, help appreciated. * In the Ed, given one dose of GranixPatient received 1300mL NS bolus in ED. Patient given an additional of 1.5 liters of NS bolus. * CXR (06/06): Right-sided MediPort extends expected location of the cavoatrial junction.Patchy opacity seen adjacent to the MediPort hub, possibly atelectasis or consolidation ; nodule cannot be excluded. Right hilar/perihilar opacity may also reflect infiltrate. Mild left basilar atelectasis.Probable bilateral tiny pleural effusions. Mild cardiomegaly. * CTA chest (06/06): No pulmonary Embolism noted. Compared to a prior CT of 2016, development of multifocal areas of cavitation in the right lung, located in areas of dense consolidation, suspicious for a cavitary pneumonia. Fungal or mycobacterial pneumonia could have this appearance. The overall degree of consolidation in the right lung appears decreased, however. - Otherwise, no obvious new, acute findings. No evidence of pulmonary embolism. - Stable appearance of a large 7 cm cavitary lesion in the right upper lobe. - Grossly stable appearance of extensive, infiltrative soft tissue in the mediastinum and june bilaterally, greater on the right, suspicious for infiltrative lymphadenopathy. This causes narrowing of the airways on the right. - Moderate right pleural effusion, mildly decreased in size. * Procal: 3.33 * Mycoplasma, rapid flu, rapid strep test - NEGATIVE * F/u Urine Legionella * Started on: * Maintenance fluids: NS 100cc/hr * Merrem 1 gm IV Q8H * Vancomycin 500 mg IV daily * Tylenol PRN 2) Hx of Hodgkin's Lymphoma with Right Chest Port * Heme-Onc: [facility] [place] on the case Previous records from prior admission: * Per heme-onc, bx from last admission confirms classical Hodgkin's Lymphoma from lymph node biopsy * Patient was started on ICE regimen chemotherapy per heme-onc last admission, on prophylaxis for tumor lysis. Will need outpatient bone marrow transplant evaluation. * ICE Regimen: * Chemotherapy regimen (hand written chemo orders in the chart) * Etoposide 150mg IV X1 (05/24-05/26) * Carboplatin 700mg X1 (05/25) * Ifosfomide 7500mg X1 (05/25) * Mesna 7500mg IV (05/25) 3) Anemia of Chronic Disease * Heme-onc on board->help appreciated * Likely Secondary to anemia of chronic disease HL (Hodgkin's lymphoma), hx of chemotherapy * Iron Studies 05/08/17 showed Total Iron low at 20, TIBC normal at 382, and % Sat low at 5 * Patient transfused 3 unit PRBC total and 1 unit platelets total during this admission * Monitor H/H 4) History of Asthma * Albuterol Q6 prn dyspnea * Mucinex 600 mg PO BID * Promethazine with codeine 5 ml PO Q4H prn * Dr. Yanely cardoso consulted, help appreciated 5) Hx of Sinus Tachycardia * multifactorial etiology: anemia, malignancy and infection * Rule out pulmonary embolism * No pneumothorax noted on repeat CT scan; CT scan ruled out PE * 2D Echocardiogram (05/07/17): EF: 60-70% systolic (official report available in the chart) 6) Prophylactic Measures * PT/OT EVAL * T[employer] referral * Diet as tolerated by patient * No chemical anticoagulation secondary to thrombocytopenia
[2017-06-10 09:58] LABS: NEUTROPHIL 61 % (50-75); TOTAL CELLS COUNTED 100
[2017-06-10 10:00] LABS: SPHEROCYTES SLIGHT
[2017-06-10] MEDS: guaiFENesin 600 mg ER Tab PO SCH ×2 (10:40→17:57)
--- NOTE | 2017-06-10 14:06 | US ---
HISTORY: elevated bilirubin, liver function test COMPARISON: Ultrasound 05/07/2017 TECHNIQUE: Sonographic evaluation of the abdomen. FINDINGS: LIVER: Liver is mildly enlarged measuring approximately 18 cm. Smooth contour though increased echogenicity of the liver parenchyma suggests mild fatty infiltration. Other infiltrative hepatocellular disease process not excluded. . No mass. There is abdominal and pelvic ascites. GALLBLADDER: Intraluminal gallbladder calculi. . Mild wall thickening and or edema could in part be due to incomplete distention thickening versus incomplete distention No sonographic Suazo sign COMMON BILE DUCT: Measures approximately 5.3 mm appearing slightly dilated. . . There is a 6 mm calculus within the distal common bile duct at the level of the pancreatic head. . PANCREAS: Unremarkable as visualized. No mass. No ductal dilatation. RIGHT KIDNEY: Measures approximately 11.6 x 4.2 x 4.4cm. Increased echogenicity ; rule out underlying mild medical renal disease. No calculus, mass, or hydronephrosis. LEFT KIDNEY: Measures approximately 11.4 x 6.2 x 5.3cm. Increased echogenicity ; rule out underlying mild medical renal disease. No calculus, mass, or hydronephrosis. SPLEEN: Normal in size and contour. No mass. AORTA: No aneurysmal dilatation. IVC: Unremarkable. OTHER FINDINGS: Small right-sided pleural effusion present. IMPRESSION: Cholelithiasis. There is a 6 mm calculus within the distal common bile duct which is slightly dilated at 5.3 mm. Abdominal and pelvic ascites. Mild hepatomegaly with fatty infiltration however other infiltrative hepatocellular disease process not excluded. Small right pleural effusion. See above discussion for additional details and findings. These findings discussed with 5T Nurse Reynoso at approximately 2 p.m. with written down and read back verification.
[2017-06-11] MEDS: Vancomycin 1 gm/NS 200 ml 1 GM/200 ML BAG IVPB SCH ×2 (00:32→13:47)
[2017-06-11] MEDS: Meropenem 1 GM in Sodium Chloride 0.9% 100 ML IVPB SCH ×3 (03:32→17:33)
--- NOTE | 2017-06-11 08:18 | CP.PCM.PN ---
<Shanda Waggoner - Last Filed: 06/11/17 13:36> Subjective - Date & Time of Evaluation Date of Evaluation: 06/11/17 Time of Evaluation: 08:00 - Subjective Subjective: Medicine Note for Dr. Richter Patient seen and examined at bedside. Patient is breathing well, tolerating diet well. Denied any acute pain. Denied fever,chills, headache, chest pain, SOB , abdominal pain, n/v/d/c, or urinary symptoms. Objective - Vital Signs/Intake and Output Vital Signs (last 24 hours): Temp Pulse Resp BP Pulse Ox 97.8 F 63 20 105/65 100 06/11/17 08:02 06/11/17 08:02 06/11/17 08:02 06/11/17 08:02 06/11/17 08:02 Intake and Output: 06/11/17 06/11/17 06:59 18:59 Intake Total 1100 Balance 1100 - Medications Medications: Current Medications Albuterol (Ventolin Hfa 90 Mcg/Actuation (8 G)) 1 puff INH RQ6 PRN PRN Reason: Shortness of Breath Allopurinol (Zyloprim) 300 mg PO DAILY [facility] Last Admin: 06/10/17 10:40 Dose: 300 mg Docusate Sodium (Colace) 100 mg PO TID [facility] Last Admin: 06/10/17 17:57 Dose: 100 mg Guaifenesin (Mucinex La) 600 mg PO BID [facility] Last Admin: 06/10/17 17:57 Dose: 600 mg Sodium Chloride (Sodium Chloride 0.9%) 1,000 mls @ 100 mls/hr IV .Q10H [facility] Last Admin: 06/10/17 19:30 Dose: Not Given Meropenem 1 gm/ Sodium (Chloride) 100 mls @ 100 mls/hr IVPB Q8H [facility] Last Admin: 06/11/17 03:32 Dose: 100 mls/hr Vancomycin/Sodium Chloride (Vancocin) 1 gm in 200 mls @ 66.667 mls/hr IVPB Q12H [facility] Stop: 06/12/17 01:01 Last Admin: 06/11/17 00:32 Dose: 66.667 mls/hr Morphine Sulfate (Morphine) 2 mg IVP Q6H PRN PRN Reason: Pain, moderate (4-7) Last Admin: 06/10/17 17:58 Dose: 2 mg Promethazine HCl/Codeine (Phenergan/Codeine Oral Syrup) 5 ml PO Q4 PRN PRN Reason: Cough Last Admin: 06/09/17 18:07 Dose: 5 ml - Labs Labs: 06/10/17 08:05 06/10/17 08:05 PT 18.2 SECONDS (9.7-12.2) H 06/06/17 13:04 INR 1.6 06/06/17 13:04 APTT 30 SECONDS (21-34) 06/06/17 13:04 - Additional Findings Additional findings: - Constitutional Appears: Non-toxic - Head Exam Head Exam: NORMAL INSPECTION - Eye Exam Eye Exam: EOMI, Normal appearance - ENT Exam ENT Exam: Mucous Membranes Moist - Neck Exam Neck Exam: Full ROM - Respiratory Exam Respiratory Exam: Accessory Muscle Use, Decreased Breath Sounds, Rhonchi - Cardiovascular Exam Cardiovascular Exam: Tachycardia - GI/Abdominal Exam GI & Abdominal Exam: Soft, Tenderness. absent: Diminished Bowel Sounds Additional comments: NEGATIVE DOSHI SIGN - Extremities Exam Extremities Exam: absent: Pedal Edema - Neurological Exam Neurological Exam: Alert, Awake, Oriented x3 - Psychiatric Exam Psychiatric exam: Normal Affect, Normal Mood - Skin Skin Exam: Dry, Intact Additional comments: port in place on right chest. no erythema, induration, drainage Assessment and Plan - Assessment and Plan (Free Text) Plan: Neutropenic Fever * Tmax 102.2, currently afebrile * Dr. Blackwell heme/onc consulted, help appreciated * Dr. Salazar ID consulted, help appreciated * Patient given one dose of Granix in the ED.Patient received 1300mL NS bolus in ED.Patient given an additional of 1.5 liters of NS bolus.CXR (06/06): Right- sided MediPort extends expected location of the cavoatrial junction.Patchy opacity seen adjacent to the MediPort hub, possibly atelectasis or consolidation ; nodule cannot be excluded. Right hilar/perihilar opacity may also reflect infiltrate. Mild left basilar atelectasis.Probable bilateral tiny pleural effusions. Mild cardiomegaly. * CTA chest (06/06): No pulmonary Embolism noted. Compared to a prior CT of 2016, development of multifocal areas of cavitation in the right lung, located in areas of dense consolidation, suspicious for a cavitary pneumonia. Fungal or mycobacterial pneumonia could have this appearance. The overall degree of consolidation in the right lung appears decreased, however. - Otherwise, no obvious new, acute findings. No evidence of pulmonary embolism. - Stable appearance of a large 7 cm cavitary lesion in the right upper lobe. - Grossly stable appearance of extensive, infiltrative soft tissue in the mediastinum and june bilaterally, greater on the right, suspicious for infiltrative lymphadenopathy. This causes narrowing of the airways on the right. - Moderate right pleural effusion, mildly decreased in size. * Procal: 3.33, repeat procal - 0.68 Mycoplasma, rapid flu, rapid strep test - NEGATIVE Continue with: * Maintenance fluids: NS 100cc/hr * Meropenem 1 gm IV Q8H (started on 06/06) * Vancomycin 500 mg IV Q12 (started on 06/07)- vanco trough 06/10- 8.9 * Tylenol PRN Repeat BLOOD AND URINE CULTURES (06/09)- negative Cholelithiasis * Elevated T.bili - 1.4, transaminitis * Abdominal US 06/10 : Cholelithiasis. There is a 6 mm calculus within the distal common bile duct which is slightly dilated at 5.3 mm. Abdominal and pelvic ascites. Mild hepatomegaly with fatty infiltration however other infiltrative hepatocellular disease process not excluded. Small right pleural effusion. * GI consulted - Dr. Pressley - help appreciated * MRCP ordered by GI - patient is NPO for this imaging Hx of Hodgkin's Lymphoma with Right Chest Port * Heme-Onc: S Rishi on the case Previous records from prior admission: * Per heme-onc, need tissue biopsy for re-diagnosis if this is the same cancer, previously diagnosed for 2013-->f/u IR lymph nody biopsy (05/18/17)-->Pathology--> classical Hodgkin's Lymphoma (Discussed with Dr. Welch, pathology) from lymph node biopsy; discussed with ICU and Heme-Onc setup for inpatient chemotherapy-->patient start chemotherapy 05/24 on the ICE Regimen * Patient is currently on ICE Regimen for classical Hodgkin's lymphoma since ; on prophylaxis for tumor lysis; will need outpatient bone marrow transplant evaluation. Completed 1st week of chemotherapy. * Chemotherapy regimen (hand written chemo orders in the chart) * Etoposide 150mg IV X1 (05/24-05/26) * Carboplatin 700mg X1 (05/25) * Ifosfomide 7500mg X1 (05/25) * Mesna 7500mg IV (05/25) Prior documentation: * Per [facility] documentation: untreated Hodgkin lymphoma w new mass on the left side of the neck for advancing Hodgkin lymphoma; Chemo with ABVD in 2014 advised to f/u heme-onc upon discharge; she has diagnosed with hodgkins lymphoma in 02/2014 but had declined any treatment at time of biopsy, but in 2014 had chemo; her prior echo without effusion and normal EF (06/2015) included in the paper documentation * Hodgkin disease, modular sclerosing type stage II (per 02/18/14 note) * Unclear regarding s/p 2014 regarding chemo/onc; patient has 6 month old child ; unclear [id number] regarding management onc; spoke with patient's cousin Ricardo and he was no aware regarding this time frame; and status disrupting chemo? Patient has 6 month Patient's parents are in [place]. She lives with an unspecified cousin. Her male cousin Ricardo Ellis [phone] was present at the time of my cousin and at present is the primary decision maker for patient. He signed a records release form for [facility] and this was placed in the front of patient chart. Documentation from [facility] is in front of the chart. (hx of biopsy, hospitalization in 2014, and prior echo noted). There is no living will nor advance directive included in the documentation per review Cousin Ricardo Ellis has been instructed by my colleague to find out if patient has any medical records at her residence as well as if there is a Living Will/Advance Directive and bring these things in for our review. Anemia * Likely Secondary to anemia of chronic disease HL, chemotherapy * Iron Studies 05/08/17 showed Total Iron low at 20, TIBC normal at 382, and % Sat low at 5 * 06/08 Received 3 units PRBCs in total and 1 unit of platelets * Monitor H/H and platelets History of Asthma * Albuterol Q6 prn dyspnea * Mucinex 600 mg PO BID * Promethazine with codeine 5 ml PO Q4H prn * Dr. Yanely cardoso consulted, help appreciated Hx of Sinus Tachycardia with Elevated Troponin on Previous admission This admission: * Sinus tachycardia 2/2 anemia * CTA: NO PE Prior admission: * [facility] [employer] Dr. Joya * SVT on 05/28 * Sinus tachycardia * Ordered for repeat echo and chest xray PA and lateral-->negative for acute findings * 2D Echocardiogram (05/07/17): EF: 60-70% systolic (official report available in the chart) * CT Chest: no PE (from 05/09/17) Prophylatic Measures * PT/OT EVAL: not performed due to neutropenia, plt * Final Fin[employer] Dies referral * Started on regular diet as requested by patient DW Rosaline Antony DO PGY1 <Miracle Richter V - Last Filed: 07/11/17 15:16> Objective - Vital Signs/Intake and Output Vital Signs (last 24 hours): Temp Pulse Resp BP Pulse Ox 98.3 F 97 H 18 105/65 100 06/14/17 15:00 06/14/17 15:00 06/14/17 15:00 06/14/17 15:00 06/14/17 15:00 - Labs Labs: 06/14/17 06:54 06/14/17 06:54 PT 18.2 SECONDS (9.7-12.2) H 06/06/17 13:04 INR 1.6 06/06/17 13:04 APTT 30 SECONDS (21-34) 06/06/17 13:04 Attending/Attestation - Attestation I have personally seen and examined this patient.: Yes I have fully participated in the care of the patient.: Yes I have reviewed all pertinent clinical information, including history, physical exam and plan: Yes Notes (Text): This is late computer entry for 06/11/2017. Patient seen, examined, and case discussed with day-time resident. Repeat cultures are negative; procalcitonn: 0.68 improved. Patient has elevated LFTs; Appreciate recommendations by GI. GI recommended for MRCP. Patient unable to complete MRCP today because it is Monday and the MRI machine is closed. Antibiotics per ID Assessment/Plan 1) Neutropenic Fever * Tmax 102.2, neutropenic; infection: pneumonia and abnormal urine culture * Dr. James Blackwell heme/onc consulted, help appreciated. * Dr. Salazar ID consulted, help appreciated. * In the Ed, given one dose of GranixPatient received 1300mL NS bolus in ED. Patient given an additional of 1.5 liters of NS bolus. * CXR (06/06): Right-sided MediPort extends expected location of the cavoatrial junction.Patchy opacity seen adjacent to the MediPort hub, possibly atelectasis or consolidation ; nodule cannot be excluded. Right hilar/perihilar opacity may also reflect infiltrate. Mild left basilar atelectasis.Probable bilateral tiny pleural effusions. Mild cardiomegaly. * CTA chest (06/06): No pulmonary Embolism noted. Compared to a prior CT of 2016, development of multifocal areas of cavitation in the right lung, located in areas of dense consolidation, suspicious for a cavitary pneumonia. Fungal or mycobacterial pneumonia could have this appearance. The overall degree of consolidation in the right lung appears decreased, however. - Otherwise, no obvious new, acute findings. No evidence of pulmonary embolism. - Stable appearance of a large 7 cm cavitary lesion in the right upper lobe. - Grossly stable appearance of extensive, infiltrative soft tissue in the mediastinum and june bilaterally, greater on the right, suspicious for infiltrative lymphadenopathy. This causes narrowing of the airways on the right. - Moderate right pleural effusion, mildly decreased in size. * Procal: 3.33--0.68 * Mycoplasma, rapid flu, rapid strep test - NEGATIVE * F/u Urine Legionella * Repeat Blood culture and urine (06/09): negative * Started on: * Maintenance fluids: NS 100cc/hr * Merrem 1 gm IV Q8H * Vancomycin 500 mg IV daily * Tylenol PRN 2) Hx of Hodgkin's Lymphoma with Right Chest Port * Heme-Onc: S Rudyard on the case Previous records from prior admission: * Per heme-onc, bx from last admission confirms classical Hodgkin's Lymphoma from lymph node biopsy * Patient was started on ICE regimen chemotherapy per heme-onc last admission, on prophylaxis for tumor lysis. Will need outpatient bone marrow transplant evaluation. * ICE Regimen: * Chemotherapy regimen (hand written chemo orders in the chart) * Etoposide 150mg IV X1 (05/24-05/26) * Carboplatin 700mg X1 (05/25) * Ifosfomide 7500mg X1 (05/25) * Mesna 7500mg IV (05/25) 3) Anemia of Chronic Disease * Heme-onc on board->help appreciated * Likely Secondary to anemia of chronic disease HL (Hodgkin's lymphoma), hx of chemotherapy * Iron Studies 05/08/17 showed Total Iron low at 20, TIBC normal at 382, and % Sat low at 5 * Patient transfused 3 unit PRBC total and 1 unit platelets total during this admission * Monitor H/H 4) History of Asthma * Albuterol Q6 prn dyspnea * Mucinex 600 mg PO BID * Promethazine with codeine 5 ml PO Q4H prn * Dr. Yanely cardoso consulted, help appreciated 5) Hx of Sinus Tachycardia * multifactorial etiology: anemia, malignancy and infection * Rule out pulmonary embolism * No pneumothorax noted on repeat CT scan; CT scan ruled out PE * 2D Echocardiogram (05/07/17): EF: 60-70% systolic (official report available in the chart) 6) Prophylactic Measures * PT/OT EVAL * Final Fin[employer] Dies referral * Diet as tolerated by patient; NPO for MRCP * No chemical anticoagulation secondary to thrombocytopenia
[2017-06-11 08:35] LABS: BASO % 0.2 % (0.0-2.0); HEMATOCRIT 27.2 % (34.0-47.0); LYMPH # 0.9 K/uL (1.0-4.3); LYMPH % 27.6 % (20.0-40.0); MEAN CELL VOLUME 78.8 fL (81.0-99.0); MEAN CORPUSCULAR HEMOGLOBIN 26.5 pg (27.0-31.0); MEAN CORPUSCULAR HGB CONC 33.6 g/dL (33.0-37.0); MEAN PLATELET VOLUME 10.5 fL (7.2-11.7); MONO # 0.7 K/uL (0.0-0.8); MONO % 21.8 % (0.0-10.0); NRBC % 0.2 % (0.0-2.0); RED CELL DISTRIBUTION WIDTH 18.5 % (11.5-14.5); WHITE BLOOD COUNT 3.1 K/uL (4.8-10.8)
[2017-06-11 08:39] LABS: PLATELET COUNT 19 K/uL (130-400)
[2017-06-11] MEDS: guaiFENesin 600 mg ER Tab PO SCH ×2 (09:12→17:35)
[2017-06-11 09:13] LABS: CHLORIDE 95 mmol/L (98-107); POTASSIUM 3.6 mmol/L (3.6-5.2); SODIUM 136 mmol/L (132-148)
[2017-06-11 09:15] LABS: ALB/GLOB RATIO 0.9 (1.0-2.1); ALKALINE PHOSPHATASE 237 U/L (38-126); AST/SGOT 28 U/L (14-36); BILIRUBIN,TOTAL 0.7 mg/dL (0.2-1.3); CARBON DIOXIDE 31 mmol/L (22-30); GFR AFRICAN-AMERICAN > 60; TOTAL PROTEIN 5.3 g/dL (6.3-8.3)
[2017-06-11 09:16] LABS: ALT/SGPT 59 U/L (9-52); BLOOD UREA NITROGEN < 2 mg/dL (7-17); CALCIUM 7.8 mg/dl (8.6-10.4); GLUCOSE,RANDOM 78 mg/dL (65-105); PHOSPHOROUS 3.1 mg/dL (2.5-4.5)
[2017-06-11 09:17] LABS: MAGNESIUM 1.6 mg/dL (1.6-2.3)
[2017-06-11 10:27] LABS: NEUTROPHIL 56 % (50-75); REACTIVE LYMPHOCYTES 1 % (0-0); TOTAL CELLS COUNTED 100
[2017-06-11 10:29] LABS: SPHEROCYTES SLIGHT
--- NOTE | 2017-06-11 14:25 | CP.PCM.CON ---
<Des Mcmanus - Last Filed: 06/11/17 14:25> History of Present Illness - History of Present Illness History of Present Illness: PGY4 Initial GI Consult Valentin Goncalves is a 26 F w/ hx of Hodkin's Lymphoma who presented to the ED with fever. He was found to have a neutropenic fever and etiology is likely from a pulmonary source from PNA. Pt was found to be pancytopenic likely 2/2 active chemotherpy, last x was 2 weeks ago as per pt. Patient is currently on ICE Regimen for classical Hodgkin's lymphoma since 05/24/17; on prophylaxis for tumor lysis. Chemotherapy regimen (hand written chemo orders in the chart) includes Etoposide 150mg IV X1 (05/24-05/26), Carboplatin 700mg X1 (05/25), Ifosfomide 7500mg X1 (05/25), and Mesna 7500mg IV (05/25). Pt's bloodwork revealed elevated LFTs including TBil yesterday. An U/S of the abd revealed a distal CBD stone 6mm. Her LFTs normalized today. She denies any abd pain, nausea , or vomiting. Pt denies any BRBPR, melena, coffee-ground emesis, or hematemesis. PMHx: Hodgkin's Lymphoma PSHx: Right sided chest Port placement at [facility] Allergies: NKDA Social: Denies tobacco, alcohol, drugs. Lives with extended family. Endoscopy Hx: Denies ROS: 12-point ROS conducted, neg other than above Past Patient History - Past Medical History & Family History Past Medical History?: Yes - Past Social History Smoking Status: Former Smoker - CARDIAC Hx Cardiac Disorders: No - PULMONARY Hx Respiratory Disorders: Yes Hx Asthma: Yes - NEUROLOGICAL Hx Neurological Disorder: No - HEENT Hx HEENT Problems: No - RENAL Hx Chronic Kidney Disease: No - ENDOCRINE/METABOLIC Hx Endocrine Disorders: No - HEMATOLOGICAL/ONCOLOGICAL Hx Blood Disorders: No Hx Blood Transfusions: Yes Hx Chemotherapy: Yes - INTEGUMENTARY Hx Dermatological Problems: No - MUSCULOSKELETAL/RHEUMATOLOGICAL Hx Musculoskeletal Disorders: No Hx Falls: No - GASTROINTESTINAL Hx Gastrointestinal Disorders: No - GENITOURINARY/GYNECOLOGICAL Hx Genitourinary Disorders: No - PSYCHIATRIC Hx Psychophysiologic Disorder: No Hx Substance Use: No - SURGICAL HISTORY Hx Surgeries: Yes Hx Vascular Access Device: Yes (port a cath) Other/Comment: Hodgkin's Lymphoma. Removal of "mass" in my left neck - ANESTHESIA Hx Anesthesia: No Hx Anesthesia Reactions: No Hx Malignant Hyperthermia: No Meds Allergies/Adverse Reactions: Allergies Allergy/AdvReac Type Severity Reaction Status Date / Time No Known Allergies Allergy Verified 06/06/17 11:32 - Medications Medications: Current Medications Albuterol (Ventolin Hfa 90 Mcg/Actuation (8 G)) 1 puff INH RQ6 PRN PRN Reason: Shortness of Breath Allopurinol (Zyloprim) 300 mg PO DAILY [facility] Last Admin: 06/11/17 09:18 Dose: 300 mg Docusate Sodium (Colace) 100 mg PO TID [facility] Last Admin: 06/11/17 13:46 Dose: Not Given Guaifenesin (Mucinex La) 600 mg PO BID [facility] Last Admin: 06/11/17 09:12 Dose: 600 mg Meropenem 1 gm/ Sodium (Chloride) 100 mls @ 100 mls/hr IVPB Q8H [facility] Last Admin: 06/11/17 09:12 Dose: 100 mls/hr Vancomycin/Sodium Chloride (Vancocin) 1 gm in 200 mls @ 66.667 mls/hr IVPB Q12H [facility] Stop: 06/12/17 01:01 Last Admin: 06/11/17 13:47 Dose: 66.667 mls/hr Morphine Sulfate (Morphine) 2 mg IVP Q6H PRN PRN Reason: Pain, moderate (4-7) Last Admin: 06/10/17 17:58 Dose: 2 mg Promethazine HCl/Codeine (Phenergan/Codeine Oral Syrup) 5 ml PO Q4 PRN PRN Reason: Cough Last Admin: 06/09/17 18:07 Dose: 5 ml Results - Vital Signs Recent Vital Signs: Last Vital Signs Temp 97.8 F 06/11/17 08:02 Pulse 63 06/11/17 10:00 Resp 20 06/11/17 08:02 BP 105/65 06/11/17 08:02 Pulse Ox 100 06/11/17 08:02 - Labs Result Diagrams: 06/11/17 08:19 06/11/17 08:19 Labs: Laboratory Results - last 24 hr 06/11/17 06/11/17 06/11/17 08:19 08:19 08:19 WBC 3.1 L RBC 3.46 L Hgb 9.1 L Hct 27.2 L MCV 78.8 L MCH 26.5 L MCHC 33.6 RDW 18.5 H Plt Count 19 L* MPV 10.5 Neut % (Auto) 50.4 Lymph % (Auto) 27.6 Esmeralda % (Auto) 21.8 H Eos % (Auto) 0.0 Baso % (Auto) 0.2 Neut # 1.6 L Lymph # 0.9 L Esmeralda # 0.7 Eos # 0.0 Baso # 0.0 Neutrophils % (Manual) 56 Band Neutrophils % 6 H Lymphocytes % (Manual) 22 Reactive Lymphs % 1 H Monocytes % (Manual) 15 H Platelet Estimate Markedly decreased L Polychromasia Slight Hypochromasia (manual) Slight Poikilocytosis (manual Slight Anisocytosis (manual) Slight Microcytosis (manual) Slight Spherocytes Slight Tear Drop Cells Slight Ovalocytes Slight Sodium 136 Potassium 3.6 Chloride 95 L Carbon Dioxide 31 H Anion Gap 14 BUN < 2 L Creatinine 0.3 L Est GFR ( Amer) > 60 Est GFR (Non-Af Amer) > 60 Random Glucose 78 Calcium 7.8 L Phosphorus 3.1 Magnesium 1.6 Total Bilirubin 0.7 AST 28 ALT 59 H Alkaline Phosphatase 237 H D Total Protein 5.3 L Albumin 2.5 L Globulin 2.8 Albumin/Globulin Ratio 0.9 L Lipase 29 Procalcitonin 0.68 H Assessment & Plan - Assessment and Plan (Free Text) Assessment: Valentin Goncalves is a 26F w/ hx of Hodkin's Lymphoma, pancytopenia who presented with PNA and neutropenic fever. Pt had a transient elevation of LFTs and + Abd U /S revealing a 6mm CBD stone. LFTs are normalized which may indicate a passed stone 1. Elevated LFTs 2. Choledocolithiasis 3. Cholelitiasis 4. PNA 5. Hodkin's lymphoma Plan: -normalization of LFTs are likely 2/2 passed stone -will need MRCP to confirm passage or retention -if there is a retained stone, an ERCP may be needed -if ERCP is needed, will need to give platlet transfusion to a goal of 50K -NPO after midnight -continue abx as per ID -GI px -DVT px -diet as tolerated D/W Dr. Mijares <Reny Mijares MD - Last Filed: 06/11/17 17:40> Meds - Medications Medications: Current Medications Albuterol (Ventolin Hfa 90 Mcg/Actuation (8 G)) 1 puff INH RQ6 PRN PRN Reason: Shortness of Breath Allopurinol (Zyloprim) 300 mg PO DAILY [facility] Last Admin: 06/11/17 09:18 Dose: 300 mg Docusate Sodium (Colace) 100 mg PO TID [facility] Last Admin: 06/11/17 13:46 Dose: Not Given Guaifenesin (Mucinex La) 600 mg PO BID [facility] Last Admin: 06/11/17 09:12 Dose: 600 mg Meropenem 1 gm/ Sodium (Chloride) 100 mls @ 100 mls/hr IVPB Q8H [facility] Last Admin: 06/11/17 09:12 Dose: 100 mls/hr Vancomycin/Sodium Chloride (Vancocin) 1 gm in 200 mls @ 66.667 mls/hr IVPB Q12H [facility] Stop: 06/12/17 01:01 Last Admin: 06/11/17 13:47 Dose: 66.667 mls/hr Morphine Sulfate (Morphine) 2 mg IVP Q4H PRN PRN Reason: Pain, moderate (4-7) Promethazine HCl/Codeine (Phenergan/Codeine Oral Syrup) 5 ml PO Q4 PRN PRN Reason: Cough Last Admin: 06/09/17 18:07 Dose: 5 ml Results - Vital Signs Recent Vital Signs: Last Vital Signs Temp 98.2 F 06/11/17 16:12 Pulse 70 06/11/17 16:12 Resp 20 06/11/17 16:12 BP 101/68 06/11/17 16:12 Pulse Ox 100 06/11/17 16:12 - Labs Result Diagrams: 06/11/17 08:19 06/11/17 08:19 Labs: Laboratory Results - last 24 hr 06/11/17 06/11/17 06/11/17 08:19 08:19 08:19 WBC 3.1 L RBC 3.46 L Hgb 9.1 L Hct 27.2 L MCV 78.8 L MCH 26.5 L MCHC 33.6 RDW 18.5 H Plt Count 19 L* MPV 10.5 Neut % (Auto) 50.4 Lymph % (Auto) 27.6 Esmeralda % (Auto) 21.8 H Eos % (Auto) 0.0 Baso % (Auto) 0.2 Neut # 1.6 L Lymph # 0.9 L Esmeralda # 0.7 Eos # 0.0 Baso # 0.0 Neutrophils % (Manual) 56 Band Neutrophils % 6 H Lymphocytes % (Manual) 22 Reactive Lymphs % 1 H Monocytes % (Manual) 15 H Platelet Estimate Markedly decreased L Polychromasia Slight Hypochromasia (manual) Slight Poikilocytosis (manual Slight Anisocytosis (manual) Slight Microcytosis (manual) Slight Spherocytes Slight Tear Drop Cells Slight Ovalocytes Slight Sodium 136 Potassium 3.6 Chloride 95 L Carbon Dioxide 31 H Anion Gap 14 BUN < 2 L Creatinine 0.3 L Est GFR ( Amer) > 60 Est GFR (Non-Af Amer) > 60 Random Glucose 78 Calcium 7.8 L Phosphorus 3.1 Magnesium 1.6 Total Bilirubin 0.7 AST 28 ALT 59 H Alkaline Phosphatase 237 H D Total Protein 5.3 L Albumin 2.5 L Globulin 2.8 Albumin/Globulin Ratio 0.9 L Lipase 29 Procalcitonin 0.68 H Attending/Attestation - Attestation I have personally seen and examined this patient.: Yes I have fully participated in the care of the patient.: Yes I have reviewed all pertinent clinical information: Yes Notes (Text): 06/11/17 17:37 Patient seen and examined with GI fellow on rounds this am. This is a 26 yr old F with history of Hodkin's Lymphoma s/p chemotherapy started in 2013, last chemo two weeks ago, admitted with neutropenic fever in setting of pancytopenia. CBD stone on sonogram with transminemia which has resolved likely passed stone. Will get MRCP. Denies RUQ pain and jaundice. If MRCP +, will schedule ERCP. Will need platelet infusion prior to ERCP. Diet as tolerated. NPO past midnight
--- NOTE | 2017-06-11 15:37 | CP.PCM.PN ---
Subjective - Date & Time of Evaluation Date of Evaluation: 06/11/17 Time of Evaluation: 09:00 - Subjective Subjective: discussed on rounds to cont 7 days of empiric IV antibiotics then d/c and observe Objective - Vital Signs/Intake and Output Vital Signs (last 24 hours): Temp Pulse Resp BP Pulse Ox 97.8 F 63 20 105/65 100 06/11/17 08:02 06/11/17 10:00 06/11/17 08:02 06/11/17 08:02 06/11/17 08:02 Intake and Output: 06/11/17 06/11/17 06:59 18:59 Intake Total 1100 500 Balance 1100 500 - Medications Medications: Current Medications Albuterol (Ventolin Hfa 90 Mcg/Actuation (8 G)) 1 puff INH RQ6 PRN PRN Reason: Shortness of Breath Allopurinol (Zyloprim) 300 mg PO DAILY [facility] Last Admin: 06/11/17 09:18 Dose: 300 mg Docusate Sodium (Colace) 100 mg PO TID [facility] Last Admin: 06/11/17 13:46 Dose: Not Given Guaifenesin (Mucinex La) 600 mg PO BID [facility] Last Admin: 06/11/17 09:12 Dose: 600 mg Meropenem 1 gm/ Sodium (Chloride) 100 mls @ 100 mls/hr IVPB Q8H [facility] Last Admin: 06/11/17 09:12 Dose: 100 mls/hr Vancomycin/Sodium Chloride (Vancocin) 1 gm in 200 mls @ 66.667 mls/hr IVPB Q12H [facility] Stop: 06/12/17 01:01 Last Admin: 06/11/17 13:47 Dose: 66.667 mls/hr Morphine Sulfate (Morphine) 2 mg IVP Q6H PRN PRN Reason: Pain, moderate (4-7) Last Admin: 06/10/17 17:58 Dose: 2 mg Promethazine HCl/Codeine (Phenergan/Codeine Oral Syrup) 5 ml PO Q4 PRN PRN Reason: Cough Last Admin: 06/09/17 18:07 Dose: 5 ml - Labs Labs: 06/11/17 08:19 06/11/17 08:19 PT 18.2 SECONDS (9.7-12.2) H 06/06/17 13:04 INR 1.6 06/06/17 13:04 APTT 30 SECONDS (21-34) 06/06/17 13:04 - Constitutional Appears: Non-toxic, Cachectic, Chronically Ill - Head Exam Head Exam: NORMOCEPHALIC - Eye Exam Eye Exam: PERRL. absent: Scleral icterus - ENT Exam ENT Exam: Mucous Membranes Dry - Neck Exam Neck Exam: absent: Lymphadenopathy - Respiratory Exam Respiratory Exam: Decreased Breath Sounds, Rhonchi - Cardiovascular Exam Cardiovascular Exam: REGULAR RHYTHM - GI/Abdominal Exam GI & Abdominal Exam: Distended, Soft Assessment and Plan (1) Neutropenic fever Status: Acute (2) Pancytopenia Status: Acute (3) Hodgkin lymphoma Status: Acute
[2017-06-12] MEDS: Vancomycin 1 gm/NS 200 ml 1 GM/200 ML BAG IVPB SCH (01:02)
[2017-06-12] MEDS: Meropenem 1 GM in Sodium Chloride 0.9% 100 ML IVPB SCH ×3 (03:02→21:11)
[2017-06-12 07:41] LABS: ALB/GLOB RATIO 0.9 (1.0-2.1); ALKALINE PHOSPHATASE 353 U/L (38-126); ALT/SGPT 71 U/L (9-52); AST/SGOT 83 U/L (14-36); BILIRUBIN,TOTAL 1.8 mg/dL (0.2-1.3); CALCIUM 8.1 mg/dl (8.6-10.4); CARBON DIOXIDE 32 mmol/L (22-30); CHLORIDE 93 mmol/L (98-107); GFR AFRICAN-AMERICAN > 60; GLUCOSE,RANDOM 75 mg/dL (65-105); MAGNESIUM 1.6 mg/dL (1.6-2.3); PHOSPHOROUS 3.2 mg/dL (2.5-4.5); POTASSIUM 3.1 mmol/L (3.6-5.2); SODIUM 132 mmol/L (132-148); TOTAL PROTEIN 5.3 g/dL (6.3-8.3)
[2017-06-12 07:42] LABS: BASO % 0.4 % (0.0-2.0); EOS % 0.3 % (0.0-4.0); HEMATOCRIT 24.1 % (34.0-47.0); LYMPH % 26.7 % (20.0-40.0); MEAN CORPUSCULAR HGB CONC 34.5 g/dL (33.0-37.0); MONO % 0.3 % (0.0-10.0); NRBC % 0.2 % (0.0-2.0); RED CELL DISTRIBUTION WIDTH 18.8 % (11.5-14.5); WHITE BLOOD COUNT 3.8 K/uL (4.8-10.8)
[2017-06-12 07:43] LABS: BLOOD UREA NITROGEN 2 mg/dL (7-17)
[2017-06-12 08:04] LABS: MEAN CELL VOLUME 84.1 fL (81.0-99.0)
--- NOTE | 2017-06-12 08:55 | CP.PCM.PN ---
<Christelle Christensen - Last Filed: 06/12/17 10:07> Subjective - Date & Time of Evaluation Date of Evaluation: 06/12/17 Time of Evaluation: 08:53 - Subjective Subjective: Gastroenterology Fellow/PGY5 Progress Note Patient states she feels good today. Denies abdominal pain. Notes phlegm production is decreasing. admits to poor appetite, Admits to formed bowel movement yesterday. Nursing notes a small vomitus with blood tinge yesterday afternoon. A 12-point review of systems negative except for as above. Objective - Vital Signs/Intake and Output Vital Signs (last 24 hours): Temp Pulse Resp BP Pulse Ox 97.9 F 62 20 105/61 100 06/12/17 00:28 06/12/17 00:28 06/12/17 00:28 06/12/17 00:28 06/12/17 00:28 Intake and Output: 06/12/17 06/12/17 06:59 18:59 Intake Total 300 Balance 300 - Medications Medications: Current Medications Albuterol (Ventolin Hfa 90 Mcg/Actuation (8 G)) 1 puff INH RQ6 PRN PRN Reason: Shortness of Breath Allopurinol (Zyloprim) 300 mg PO DAILY [facility] Last Admin: 06/11/17 09:18 Dose: 300 mg Docusate Sodium (Colace) 100 mg PO TID [facility] Last Admin: 06/11/17 18:00 Dose: Not Given Guaifenesin (Mucinex La) 600 mg PO BID [facility] Last Admin: 06/11/17 17:35 Dose: 600 mg Meropenem 1 gm/ Sodium (Chloride) 100 mls @ 100 mls/hr IVPB Q8H [facility] Last Admin: 06/12/17 03:02 Dose: 100 mls/hr Morphine Sulfate (Morphine) 2 mg IVP Q4H PRN PRN Reason: Pain, moderate (4-7) Last Admin: 06/11/17 22:06 Dose: 2 mg Ondansetron HCl (Zofran Inj) 4 mg IVP Q6 PRN PRN Reason: Nausea/Vomiting Last Admin: 06/11/17 17:44 Dose: 4 mg Promethazine HCl/Codeine (Phenergan/Codeine Oral Syrup) 5 ml PO Q4 PRN PRN Reason: Cough Last Admin: 06/09/17 18:07 Dose: 5 ml - Labs Labs: 06/12/17 07:06 06/12/17 07:06 PT 18.2 SECONDS (9.7-12.2) H 06/06/17 13:04 INR 1.6 06/06/17 13:04 APTT 30 SECONDS (21-34) 06/06/17 13:04 - Constitutional Appears: Cachectic, Chronically Ill - Head Exam Head Exam: ATRAUMATIC, NORMOCEPHALIC - Eye Exam Eye Exam: EOMI, PERRL Pupil Exam: PERRL. absent: Miosis, Mydriatic - ENT Exam ENT Exam: Mucous Membranes Moist, Normal Oropharynx - Neck Exam Neck Exam: Full ROM, Normal Inspection - Respiratory Exam Respiratory Exam: Clear to Ausculation Bilateral, Wheezes Additional comments: scattered wheezes - Cardiovascular Exam Cardiovascular Exam: RRR, +S1, +S2. absent: Gallop, Rubs - GI/Abdominal Exam GI & Abdominal Exam: Soft, Normal Bowel Sounds. absent: Distended, Firm, Guarding, Rigid, Tenderness, Organomegaly, Rebound - Extremities Exam Extremities Exam: Normal Inspection. absent: Pedal Edema - Neurological Exam Neurological Exam: Alert, Awake - Psychiatric Exam Psychiatric exam: Normal Affect, Normal Mood - Skin Skin Exam: Dry, Intact, Normal Color, Warm Assessment and Plan - Assessment and Plan (Free Text) Assessment: 26 year old female with history of Hodgkin's Lymphoma diagnosed 2013 presenting with fever from outpatient chemotherapy. Active treatment of neutropenic fever and multifocal cavitary HCAP with recent discharge 06/01 for hypoxic/hypercarbic VDRF 2/2 HCAP with pleural effusion s/p pigtail drainage and initiation of salvage ICE chemotherapy. GI consultation for elevated LFTs. Ultrasound showed cholelithiasis and choledocholelithiasis. No prior EGD or colonoscopy. Plan: >pending MRCP to evaluate for retained stone or other pathology >daily LFTs >ordered direct bilirubin >negative Hepatitis panel 04/2017 >ID managing- on Merrem and vancomycin >NPO >await MRCP to discuss EUS/ERCP indication >will require platelet transfusion to goal of 50 if procedure needed >will follow clinical course <Reny Mijares MD - Last Filed: 06/12/17 12:08> Objective - Vital Signs/Intake and Output Vital Signs (last 24 hours): Temp Pulse Resp BP Pulse Ox 97.5 F L 55 L 20 96/61 L 99 06/12/17 08:00 06/12/17 08:00 06/12/17 08:00 06/12/17 08:00 06/12/17 08:00 Intake and Output: 06/12/17 06/12/17 06:59 18:59 Intake Total 300 Balance 300 - Medications Medications: Current Medications Albuterol (Ventolin Hfa 90 Mcg/Actuation (8 G)) 1 puff INH RQ6 PRN PRN Reason: Shortness of Breath Allopurinol (Zyloprim) 300 mg PO DAILY [facility] Last Admin: 06/11/17 09:18 Dose: 300 mg Docusate Sodium (Colace) 100 mg PO TID [facility] Last Admin: 06/11/17 18:00 Dose: Not Given Guaifenesin (Mucinex La) 600 mg PO BID [facility] Last Admin: 06/11/17 17:35 Dose: 600 mg Meropenem 1 gm/ Sodium (Chloride) 100 mls @ 100 mls/hr IVPB Q8H [facility] Last Admin: 06/12/17 03:02 Dose: 100 mls/hr Potassium Chloride/Dextrose/Sod Cl (Potassium Chl 40 Meq In D5-1/2ns) 1,000 mls @ 50 mls/hr IV .Q20H [facility] Morphine Sulfate (Morphine) 2 mg IVP Q4H PRN PRN Reason: Pain, moderate (4-7) Last Admin: 06/11/17 22:06 Dose: 2 mg Ondansetron HCl (Zofran Inj) 4 mg IVP Q6 PRN PRN Reason: Nausea/Vomiting Last Admin: 06/11/17 17:44 Dose: 4 mg Promethazine HCl/Codeine (Phenergan/Codeine Oral Syrup) 5 ml PO Q4 PRN PRN Reason: Cough Last Admin: 06/09/17 18:07 Dose: 5 ml Saccharomyces Boulardii (Florastor) 250 mg PO BID [facility] - Labs Labs: 06/12/17 07:06 06/12/17 07:06 PT 18.2 SECONDS (9.7-12.2) H 06/06/17 13:04 INR 1.6 06/06/17 13:04 APTT 30 SECONDS (21-34) 06/06/17 13:04 Attending/Attestation - Attestation I have personally seen and examined this patient.: Yes I have fully participated in the care of the patient.: Yes I have reviewed all pertinent clinical information, including history, physical exam and plan: Yes Notes (Text): 06/12/17 12:07 Patient seen and examined with GI fellow on rounds this am. This is a 26 yr old F with history of Hodkin's Lymphoma s/p chemotherapy started in 2013, last chemo two weeks ago, admitted with neutropenic fever in setting of pancytopenia. CBD stone on sonogram with transminemia and hyperbilirubinemia. Pending MRCP. Denies RUQ pain and jaundice. If MRCP +, will schedule ERCP. Will need platelet infusion prior to ERCP. Diet as tolerated.
--- NOTE | 2017-06-12 09:29 | CP.PCM.PN ---
Subjective - Date & Time of Evaluation Date of Evaluation: 06/12/17 Time of Evaluation: : - Subjective Subjective: Progress Note for Dr. Mcmanus Patient seen and examined at bedside. Patient seems to be in a more somnolent mood today. Patient denied any difficulty breathing, chest pain, abdominal pain. Patient was scheduled for MRCP today. Objective - Vital Signs/Intake and Output Vital Signs (last 24 hours): Temp Pulse Resp BP Pulse Ox 97.5 F L 55 L 20 96/61 L 99 06/12/17 08:00 06/12/17 08:00 06/12/17 08:00 06/12/17 08:00 06/12/17 08:00 Intake and Output: 06/12/17 06/12/17 06:59 18:59 Intake Total 300 Balance 300 - Medications Medications: Current Medications Albuterol (Ventolin Hfa 90 Mcg/Actuation (8 G)) 1 puff INH RQ6 PRN PRN Reason: Shortness of Breath Allopurinol (Zyloprim) 300 mg PO DAILY [facility] Last Admin: 06/11/17 09:18 Dose: 300 mg Docusate Sodium (Colace) 100 mg PO TID [facility] Last Admin: 06/11/17 18:00 Dose: Not Given Guaifenesin (Mucinex La) 600 mg PO BID [facility] Last Admin: 06/11/17 17:35 Dose: 600 mg Meropenem 1 gm/ Sodium (Chloride) 100 mls @ 100 mls/hr IVPB Q8H [facility] Last Admin: 06/12/17 03:02 Dose: 100 mls/hr Morphine Sulfate (Morphine) 2 mg IVP Q4H PRN PRN Reason: Pain, moderate (4-7) Last Admin: 06/11/17 22:06 Dose: 2 mg Ondansetron HCl (Zofran Inj) 4 mg IVP Q6 PRN PRN Reason: Nausea/Vomiting Last Admin: 06/11/17 17:44 Dose: 4 mg Promethazine HCl/Codeine (Phenergan/Codeine Oral Syrup) 5 ml PO Q4 PRN PRN Reason: Cough Last Admin: 06/09/17 18:07 Dose: 5 ml - Labs Labs: 06/12/17 07:06 06/12/17 07:06 PT 18.2 SECONDS (9.7-12.2) H 06/06/17 13:04 INR 1.6 06/06/17 13:04 APTT 30 SECONDS (21-34) 06/06/17 13:04 - Constitutional Appears: Cachectic, Chronically Ill - Head Exam Head Exam: NORMAL INSPECTION - Eye Exam Eye Exam: EOMI, Normal appearance - ENT Exam ENT Exam: Mucous Membranes Moist - Neck Exam Neck Exam: Full ROM - Respiratory Exam Respiratory Exam: Clear to Ausculation Bilateral, NORMAL BREATHING PATTERN. absent: Accessory Muscle Use - Cardiovascular Exam Cardiovascular Exam: REGULAR RHYTHM, +S1, +S2 - GI/Abdominal Exam GI & Abdominal Exam: Soft. absent: Rebound - Extremities Exam Extremities Exam: absent: Joint Swelling, Pedal Edema - Neurological Exam Neurological Exam: Alert, Awake - Psychiatric Exam Psychiatric exam: Depressed, Flat Affect Additional comments: patient seems less talkative today compared to last visit - Skin Skin Exam: Dry, Warm Assessment and Plan - Assessment and Plan (Free Text) Assessment: Neutropenic Fever * Tmax 102.2, currently afebrile * Dr. Rishi taylor/onc consulted, help appreciated * Dr. Marie POLK consulted, help appreciated * Patient given one dose of Granix in the ED.Patient received 1300mL NS bolus in ED.Patient given an additional of 1.5 liters of NS bolus.CXR (06/06): Right- sided MediPort extends expected location of the cavoatrial junction.Patchy opacity seen adjacent to the MediPort hub, possibly atelectasis or consolidation ; nodule cannot be excluded. Right hilar/perihilar opacity may also reflect infiltrate. Mild left basilar atelectasis.Probable bilateral tiny pleural effusions. Mild cardiomegaly. * CTA chest (06/06): No pulmonary Embolism noted. Compared to a prior CT of 2016, development of multifocal areas of cavitation in the right lung, located in areas of dense consolidation, suspicious for a cavitary pneumonia. Fungal or mycobacterial pneumonia could have this appearance. The overall degree of consolidation in the right lung appears decreased, however. - Otherwise, no obvious new, acute findings. No evidence of pulmonary embolism. - Stable appearance of a large 7 cm cavitary lesion in the right upper lobe. - Grossly stable appearance of extensive, infiltrative soft tissue in the mediastinum and june bilaterally, greater on the right, suspicious for infiltrative lymphadenopathy. This causes narrowing of the airways on the right. - Moderate right pleural effusion, mildly decreased in size. * Procal: 3.33, 06/11 Procal: 0.68 * Mycoplasma, rapid flu, rapid strep test - NEGATIVE Continue with: * Maintenance fluids: NS 100cc/hr * Meropenem 1 gm IV Q8H (started on 06/06) * Vancomycin 500 mg IV Q12 (started on 06/07) * 06/10 vanco trough 8.9 * Tylenol PRN Culture 06/09 Blood culture: negative Urine Culture: gram negative rods 06/06 <10,000 cFu, 06/09 no growth Cholelithiasis * Elevated T.bili - 1.4, transaminitis * Abdominal US 06/10 : Cholelithiasis. There is a 6 mm calculus within the distal common bile duct which is slightly dilated at 5.3 mm. Abdominal and pelvic ascites. Mild hepatomegaly with fatty infiltration however other infiltrative hepatocellular disease process not excluded. Small right pleural effusion. * GI consult: Dr. Pressley * MRCP by GI 7mm filling defect noted in CBD. ERCP in future, follow up GI recommendations: optimization with platelets above 50, pulmonology clearance with documentation * Pulmonology Consulted * follow up Dr. Blackwell's recommendation for platelet transfusion on 06/13 Hx of Hodgkin's Lymphoma with Right Chest Port * Heme-Onc: James Blackwell on the case Previous records from prior admission: * Per heme-onc, need tissue biopsy for re-diagnosis if this is the same cancer, previously diagnosed for 2013-->f/u IR lymph nody biopsy (05/18/17)-->Pathology--> classical Hodgkin's Lymphoma (Discussed with Dr. Welch, pathology) from lymph node biopsy; discussed with ICU and Heme-Onc setup for inpatient chemotherapy-->patient start chemotherapy 05/24 on the ICE Regimen * Patient is currently on ICE Regimen for classical Hodgkin's lymphoma since ; on prophylaxis for tumor lysis; will need outpatient bone marrow transplant evaluation. Completed 1st week of chemotherapy. * Chemotherapy regimen (hand written chemo orders in the chart) * Etoposide 150mg IV X1 (05/24-05/26) * Carboplatin 700mg X1 (05/25) * Ifosfomide 7500mg X1 (05/25) * Mesna 7500mg IV (05/25) Prior documentation: * Per [facility] documentation: untreated Hodgkin lymphoma w new mass on the left side of the neck for advancing Hodgkin lymphoma; Chemo with ABVD in 2014 advised to f/u heme-onc upon discharge; she has diagnosed with hodgkins lymphoma in 02/2014 but had declined any treatment at time of biopsy, but in 2014 had chemo; her prior echo without effusion and normal EF (06/2015) included in the paper documentation * Hodgkin disease, modular sclerosing type stage II (per 02/18/14 note) * Unclear regarding s/p 2014 regarding chemo/onc; patient has 6 month old child ; unclear [id number] regarding management onc; spoke with patient's cousin Ricardo and he was no aware regarding this time frame; and status disrupting chemo? Patient has 6 month Patient's parents are in [place]. She lives with an unspecified cousin. Her male cousin Ricardo Ellis [phone] was present at the time of my cousin and at present is the primary decision maker for patient. He signed a records release form for [facility] and this was placed in the front of patient chart. Documentation from [facility] is in front of the chart. (hx of biopsy, hospitalization in 2014, and prior echo noted). There is no living will nor advance directive included in the documentation per review Cousin Ricardo Ellis has been instructed by my colleague to find out if patient has any medical records at her residence as well as if there is a Living Will/Advance Directive and bring these things in for our review. Anemia * Likely Secondary to anemia of chronic disease HL, chemotherapy * Iron Studies 05/08/17 showed Total Iron low at 20, TIBC normal at 382, and % Sat low at 5 * 06/08 Received 3 units PRBCs in total and 1 unit of platelets * Monitor H/H and platelets History of Asthma * Albuterol Q6 prn dyspnea * Mucinex 600 mg PO BID * Promethazine with codeine 5 ml PO Q4H prn * Dr. Yanely cardoso consulted, help appreciated Hx of Sinus Tachycardia with Elevated Troponin on Previous admission This admission: * Sinus tachycardia 2/2 anemia * CTA: NO PE Prior admission: * [facility] [employer] Dr. 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
[2017-06-12] MEDS: guaiFENesin 600 mg ER Tab PO SCH ×2 (10:00→17:59)
[2017-06-12 10:22] LABS: BILIRUBIN,DIRECT 1.5 mg/dL (0.0-0.4)
[2017-06-12] MEDS ORDERED: Gadodiamide 287 MG/ML VIAL (15ML) IV ONE (12:04)
[2017-06-12] MEDS: Potassium Chl 40 mEq in D5-1/2 1,000 ML IV SCH (13:00)
--- NOTE | 2017-06-12 13:53 | MRI ---
MRI abdomen without/with IV contrast MRCP Indication: R/o CBD stone, pancreatic mass Technique: Multiplanar, multi sequence magnetic resonance images of the abdomen were obtained without and with the administration of intravenous gadolinium using a multi phase abdomen protocol. Rotating maximum intensity projection images of the biliary system were generated. A total of 1098 images submitted for review Comparison: Abdominal ultrasound performed 06/10/17, CTA chest performed 06/06/17, CT abdomen and pelvis with IV contrast performed 05/07/17 Findings: Examination limited by patient motion. Hepatomegaly. Distended gallbladder. Cholelithiasis. There is no intrahepatic biliary ductal dilatation. Dilated ectatic common bile duct measures approximately 13 mm in diameter. Question 7 mm filling defect within the proximal common bile duct (series 5, image 17). The pancreatic duct appears within normal limits of caliber. No definite filling defects are seen in the common bile duct or pancreatic duct. The spleen, pancreas, and adrenal glands appear grossly unremarkable. No focal pancreatic mass identified. The kidneys enhance symmetrically. No hydronephrosis or obstructing calculus identified. Evaluation for adenopathy is limited due to patient motion and paucity of intra-abdominal/ fat. Suspect bulky adenopathy within than mesenteries/retroperitoneum. Limited views of the inferior thorax demonstrates partially imaged right pleural effusion/consolidation. Impression: Examination limited due to patient motion. Suggest CT with oral and IV contrast for further evaluation if indicated. Dilated ectatic common bile duct. Question 7 mm filling defect is seen only on a single sequence. The common bile duct stone evident on all recent ultrasound cannot be confirmed on the current study. Distended gallbladder. Cholelithiasis. Evaluation for adenopathy is limited due to patient motion and paucity of intra-abdominal/ fat. Appearance of bulky adenopathy within the mesentery and retroperitoneum. Hepatomegaly. Partially imaged right pleural effusion/consolidation.
[2017-06-12] MEDS: Saccharomyces Boulardi 250 mg Cap PO SCH ×3 (17:58→18:10)
[2017-06-13] MEDS: Meropenem 1 GM in Sodium Chloride 0.9% 100 ML IVPB SCH ×2 (01:47→10:53)
[2017-06-13] MEDS: Potassium Chl 40 mEq in D5-1/2 1,000 ML IV SCH ×2 (06:24→21:32)
[2017-06-13 06:26] LABS: BASO % 0.2 % (0.0-2.0); EOS % 0.1 % (0.0-4.0); LYMPH # 1.2 K/uL (1.0-4.3); LYMPH % 35.1 % (20.0-40.0); MEAN CELL VOLUME 78.5 fL (81.0-99.0); MEAN CORPUSCULAR HEMOGLOBIN 26.2 pg (27.0-31.0); MEAN CORPUSCULAR HGB CONC 33.4 g/dL (33.0-37.0); MEAN PLATELET VOLUME 8.7 fL (7.2-11.7); MONO # 0.8 K/uL (0.0-0.8); NRBC % 0.1 % (0.0-2.0); PLATELET COUNT 58 K/uL (130-400); RED CELL DISTRIBUTION WIDTH 19.1 % (11.5-14.5); WHITE BLOOD COUNT 3.4 K/uL (4.8-10.8)
[2017-06-13 06:36] LABS: CHLORIDE 93 mmol/L (98-107); POTASSIUM 3.5 mmol/L (3.6-5.2); SODIUM 134 mmol/L (132-148)
[2017-06-13 06:38] LABS: BILIRUBIN,TOTAL 0.5 mg/dL (0.2-1.3); CARBON DIOXIDE 34 mmol/L (22-30); GFR AFRICAN-AMERICAN > 60
[2017-06-13 06:39] LABS: ALB/GLOB RATIO 0.7 (1.0-2.1); ALKALINE PHOSPHATASE 243 U/L (38-126); ALT/SGPT 52 U/L (9-52); AST/SGOT 17 U/L (14-36); BLOOD UREA NITROGEN 3 mg/dL (7-17); CALCIUM 7.8 mg/dl (8.6-10.4); GLUCOSE,RANDOM 81 mg/dL (65-105); MAGNESIUM 1.5 mg/dL (1.6-2.3); PHOSPHOROUS 3.1 mg/dL (2.5-4.5); TOTAL PROTEIN 5.8 g/dL (6.3-8.3)
--- NOTE | 2017-06-13 07:47 | CP.PCM.PN ---
<Christelle Christensen - Last Filed: 06/13/17 09:03> Subjective - Date & Time of Evaluation Date of Evaluation: 06/13/17 Time of Evaluation: 07:43 - Subjective Subjective: Gastroenterology Fellow/PGY5 Progress Note Patient states she feels good this morning. Notes phlegm production is decreasing. States she ate dinner well last night. Admits to bowel movement yesterday. A 12-point review of systems negative except for as above. Objective - Vital Signs/Intake and Output Vital Signs (last 24 hours): Temp Pulse Resp BP Pulse Ox 97.8 F 78 20 100/65 100 06/12/17 23:47 06/13/17 00:00 06/12/17 23:47 06/12/17 23:47 06/12/17 23:47 Intake and Output: 06/13/17 06/13/17 06:59 18:59 Intake Total 550 Balance 550 - Medications Medications: Current Medications Albuterol (Ventolin Hfa 90 Mcg/Actuation (8 G)) 1 puff INH RQ6 PRN PRN Reason: Shortness of Breath Allopurinol (Zyloprim) 300 mg PO DAILY REPLACED BY [facility] Last Admin: 06/12/17 18:04 Dose: 300 mg Docusate Sodium (Colace) 100 mg PO TID REPLACED BY [facility] Last Admin: 06/12/17 18:08 Dose: 100 mg Guaifenesin (Mucinex La) 600 mg PO BID REPLACED BY [facility] Last Admin: 06/12/17 17:59 Dose: 600 mg Meropenem 1 gm/ Sodium (Chloride) 100 mls @ 100 mls/hr IVPB Q8H REPLACED BY [facility] Last Admin: 06/13/17 01:47 Dose: 100 mls/hr Potassium Chloride/Dextrose/Sod Cl (Potassium Chl 40 Meq In D5-1/2ns) 1,000 mls @ 50 mls/hr IV .Q20H REPLACED BY [facility] Last Admin: 06/13/17 06:24 Dose: Not Given Morphine Sulfate (Morphine) 2 mg IVP Q4H PRN PRN Reason: Pain, moderate (4-7) Last Admin: 06/11/17 22:06 Dose: 2 mg Ondansetron HCl (Zofran Inj) 4 mg IVP Q6 PRN PRN Reason: Nausea/Vomiting Last Admin: 06/12/17 17:52 Dose: 4 mg Promethazine HCl/Codeine (Phenergan/Codeine Oral Syrup) 5 ml PO Q4 PRN PRN Reason: Cough Last Admin: 06/09/17 18:07 Dose: 5 ml Saccharomyces Boulardii (Florastor) 250 mg PO BID [facility] Last Admin: 06/12/17 18:10 Dose: 250 mg - Labs Labs: 06/13/17 06:14 06/13/17 06:14 PT 18.2 SECONDS (9.7-12.2) H 06/06/17 13:04 INR 1.6 06/06/17 13:04 APTT 30 SECONDS (21-34) 06/06/17 13:04 - Constitutional Appears: No Acute Distress, Chronically Ill - Head Exam Head Exam: ATRAUMATIC, NORMOCEPHALIC - Eye Exam Eye Exam: EOMI, PERRL Pupil Exam: PERRL. absent: Miosis, Mydriatic - ENT Exam ENT Exam: Mucous Membranes Moist, Normal Oropharynx - Neck Exam Neck Exam: Full ROM, Normal Inspection - Respiratory Exam Respiratory Exam: Clear to Ausculation Bilateral. absent: Rales, Rhonchi, Wheezes - Cardiovascular Exam Cardiovascular Exam: RRR, +S1, +S2. absent: Gallop, Rubs - GI/Abdominal Exam GI & Abdominal Exam: Soft, Normal Bowel Sounds. absent: Distended, Firm, Guarding, Rigid, Tenderness, Organomegaly, Rebound - Extremities Exam Extremities Exam: Normal Inspection. absent: Pedal Edema - Neurological Exam Neurological Exam: Alert, Awake - Psychiatric Exam Psychiatric exam: Normal Affect, Normal Mood - Skin Skin Exam: Dry, Intact, Normal Color, Warm Assessment and Plan - Assessment and Plan (Free Text) Assessment: 26 year old female with history of Hodgkin's Lymphoma diagnosed 2013 presenting with fever from outpatient chemotherapy. Active treatment of neutropenic fever and multifocal cavitary HCAP with recent discharge 06/01 for hypoxic/hypercarbic VDRF 2/2 HCAP with pleural effusion s/p pigtail drainage and initiation of salvage ICE chemotherapy. GI consultation for elevated LFTs. Ultrasound showed cholelithiasis and choledocholelithiasis. No prior EGD or colonoscopy. Plan: >MRCP- gallstones, dilated CBD 13mm, questionable proximal 7mm CBD, normal PD >obtain pulmonary and Hem/Onc clearance >daily LFTs improving >platelets over 50 today >ID managing- on Merrem and vancomycin >tolerating regular diet >will follow clinical course >medical optimization prior to elective EUS/ERCP <Ricardo Pressley Y - Last Filed: 06/13/17 09:15> Objective - Vital Signs/Intake and Output Vital Signs (last 24 hours): Temp Pulse Resp BP Pulse Ox 97.8 F 78 20 100/65 100 06/12/17 23:47 06/13/17 00:00 06/12/17 23:47 06/12/17 23:47 06/12/17 23:47 Intake and Output: 06/13/17 06/13/17 06:59 18:59 Intake Total 550 Balance 550 - Medications Medications: Current Medications Albuterol (Ventolin Hfa 90 Mcg/Actuation (8 G)) 1 puff INH RQ6 PRN PRN Reason: Shortness of Breath Allopurinol (Zyloprim) 300 mg PO DAILY REPLACED BY [facility] Last Admin: 06/12/17 18:04 Dose: 300 mg Docusate Sodium (Colace) 100 mg PO TID REPLACED BY [facility] Last Admin: 06/12/17 18:08 Dose: 100 mg Guaifenesin (Mucinex La) 600 mg PO BID REPLACED BY [facility] Last Admin: 06/12/17 17:59 Dose: 600 mg Meropenem 1 gm/ Sodium (Chloride) 100 mls @ 100 mls/hr IVPB Q8H REPLACED BY [facility] Last Admin: 06/13/17 01:47 Dose: 100 mls/hr Potassium Chloride/Dextrose/Sod Cl (Potassium Chl 40 Meq In D5-1/2ns) 1,000 mls @ 50 mls/hr IV .Q20H REPLACED BY [facility] Last Admin: 06/13/17 06:24 Dose: Not Given Morphine Sulfate (Morphine) 2 mg IVP Q4H PRN PRN Reason: Pain, moderate (4-7) Last Admin: 06/11/17 22:06 Dose: 2 mg Ondansetron HCl (Zofran Inj) 4 mg IVP Q6 PRN PRN Reason: Nausea/Vomiting Last Admin: 06/12/17 17:52 Dose: 4 mg Promethazine HCl/Codeine (Phenergan/Codeine Oral Syrup) 5 ml PO Q4 PRN PRN Reason: Cough Last Admin: 06/09/17 18:07 Dose: 5 ml Saccharomyces Boulardii (Florastor) 250 mg PO BID [facility] Last Admin: 06/12/17 18:10 Dose: 250 mg - Labs Labs: 06/13/17 06:14 06/13/17 06:14 PT 18.2 SECONDS (9.7-12.2) H 06/06/17 13:04 INR 1.6 06/06/17 13:04 APTT 30 SECONDS (21-34) 06/06/17 13:04 Attending/Attestation - Attestation I have personally seen and examined this patient.: Yes I have fully participated in the care of the patient.: Yes I have reviewed all pertinent clinical information, including history, physical exam and plan: Yes Notes (Text): 06/13/17 09:08 I have seen and examined patient with GI fellow. No acute events overnight, she is seen resting in bed comfortably. She claims her breathing has improved and denies abdominal pain, nausea, vomiting, fever/chills. Tolerating PO diet without difficulty. Hodkin's lymphoma on chemotherapy Neutropenic fever Pneumonia Transaminitis MRCP reviewed by me showing distended GB, cholelithiasis, dilated CBD with 7mm filling defect suggestive of choledocholithiasis - Diet as tolerated - LFTs, bilirubin, normalized today, ?passed stone - Continue with antibiotic therapy as per ID - Follow up oncology recommendations - Continue to monitor LFTs - Given absence of clinical septic features, normal LFTs, and hemodynamic stability would defer endoscopic intervention for time being in setting of active pulmonary disease. When patient is medically optimized, would suggest EUS +/- ERCP for further evaluation. Will sign off case, please reconsult as necessary, thank you.
[2017-06-13 08:04] LABS: NEUTROPHIL 35 % (50-75); TOTAL CELLS COUNTED 100
[2017-06-13] MEDS: guaiFENesin 600 mg ER Tab PO SCH ×2 (10:53→18:18)
[2017-06-13] MEDS: Saccharomyces Boulardi 250 mg Cap PO SCH ×2 (10:53→18:18)
--- NOTE | 2017-06-13 12:36 | CP.PCM.PN ---
Subjective - Date & Time of Evaluation Date of Evaluation: 06/13/17 Time of Evaluation: 07:00 - Subjective Subjective: EVENTS NOTED FOR ERCP CONT IV ANTIBIOTIC FOR NOW Objective - Vital Signs/Intake and Output Vital Signs (last 24 hours): Temp Pulse Resp BP Pulse Ox 97.6 F 58 L 20 94/55 L 100 06/13/17 08:00 06/13/17 08:00 06/13/17 08:00 06/13/17 08:00 06/13/17 08:00 Intake and Output: 06/13/17 06/13/17 06:59 18:59 Intake Total 550 Balance 550 - Medications Medications: Current Medications Albuterol (Ventolin Hfa 90 Mcg/Actuation (8 G)) 1 puff INH RQ6 PRN PRN Reason: Shortness of Breath Allopurinol (Zyloprim) 300 mg PO DAILY [facility] Last Admin: 06/13/17 10:55 Dose: 300 mg Docusate Sodium (Colace) 100 mg PO TID [facility] Last Admin: 06/13/17 10:53 Dose: 100 mg Guaifenesin (Mucinex La) 600 mg PO BID [facility] Last Admin: 06/13/17 10:53 Dose: 600 mg Potassium Chloride/Dextrose/Sod Cl (Potassium Chl 40 Meq In D5-1/2ns) 1,000 mls @ 50 mls/hr IV .Q20H [facility] Last Admin: 06/13/17 06:24 Dose: Not Given Morphine Sulfate (Morphine) 2 mg IVP Q4H PRN PRN Reason: Pain, moderate (4-7) Last Admin: 06/11/17 22:06 Dose: 2 mg Ondansetron HCl (Zofran Inj) 4 mg IVP Q6 PRN PRN Reason: Nausea/Vomiting Last Admin: 06/12/17 17:52 Dose: 4 mg Promethazine HCl/Codeine (Phenergan/Codeine Oral Syrup) 5 ml PO Q4 PRN PRN Reason: Cough Last Admin: 06/09/17 18:07 Dose: 5 ml Saccharomyces Boulardii (Florastor) 250 mg PO BID [facility] Last Admin: 06/13/17 10:53 Dose: 250 mg - Labs Labs: 06/13/17 06:14 06/13/17 06:14 PT 18.2 SECONDS (9.7-12.2) H 06/06/17 13:04 INR 1.6 06/06/17 13:04 APTT 30 SECONDS (21-34) 06/06/17 13:04 Assessment and Plan (1) Neutropenic fever Status: Acute (2) Pancytopenia Status: Acute (3) Hodgkin lymphoma Status: Acute
--- NOTE | 2017-06-13 12:58 | CARD ---
APPROVED REPORT EKG Measurement Heart [id number] <Conclusion> Sinus tachycardia Nonspecific T wave abnormality Abnormal ECG
--- NOTE | 2017-06-13 13:41 | CP.PCM.PN ---
Subjective - Date & Time of Evaluation Date of Evaluation: 06/13/17 Time of Evaluation: 13:40 - Subjective Subjective: Patient was seen and examined at bedside in no acute distress. Patient was sitting comfortably in bed. She has no complaints and feels well. She reports she is tolerating her diet and has had normal bowel movements. Patient denies chest pain, abdominal pain, shortness of breath, cough, nausea, vomiting, and fevers. Objective - Vital Signs/Intake and Output Vital Signs (last 24 hours): Temp Pulse Resp BP Pulse Ox 97.6 F 58 L 20 94/55 L 100 06/13/17 08:00 06/13/17 08:00 06/13/17 08:00 06/13/17 08:00 06/13/17 08:00 Intake and Output: 06/13/17 06/13/17 06:59 18:59 Intake Total 550 Balance 550 - Medications Medications: Current Medications Albuterol (Ventolin Hfa 90 Mcg/Actuation (8 G)) 1 puff INH RQ6 PRN PRN Reason: Shortness of Breath Allopurinol (Zyloprim) 300 mg PO DAILY [facility] Last Admin: 06/13/17 10:55 Dose: 300 mg Docusate Sodium (Colace) 100 mg PO TID [facility] Last Admin: 06/13/17 10:53 Dose: 100 mg Guaifenesin (Mucinex La) 600 mg PO BID [facility] Last Admin: 06/13/17 10:53 Dose: 600 mg Potassium Chloride/Dextrose/Sod Cl (Potassium Chl 40 Meq In D5-1/2ns) 1,000 mls @ 50 mls/hr IV .Q20H [facility] Last Admin: 06/13/17 06:24 Dose: Not Given Morphine Sulfate (Morphine) 2 mg IVP Q4H PRN PRN Reason: Pain, moderate (4-7) Last Admin: 06/11/17 22:06 Dose: 2 mg Ondansetron HCl (Zofran Inj) 4 mg IVP Q6 PRN PRN Reason: Nausea/Vomiting Last Admin: 06/12/17 17:52 Dose: 4 mg Promethazine HCl/Codeine (Phenergan/Codeine Oral Syrup) 5 ml PO Q4 PRN PRN Reason: Cough Last Admin: 06/09/17 18:07 Dose: 5 ml Saccharomyces Boulardii (Florastor) 250 mg PO BID [facility] Last Admin: 06/13/17 10:53 Dose: 250 mg - Labs Labs: 06/13/17 06:14 06/13/17 06:14 PT 18.2 SECONDS (9.7-12.2) H 06/06/17 13:04 INR 1.6 06/06/17 13:04 APTT 30 SECONDS (21-34) 06/06/17 13:04 - Head Exam Head Exam: ATRAUMATIC, NORMAL INSPECTION - Eye Exam Eye Exam: EOMI, Normal appearance - ENT Exam ENT Exam: Mucous Membranes Moist - Respiratory Exam Respiratory Exam: Decreased Breath Sounds (L>R), Clear to Ausculation Bilateral , Wheezes, NORMAL BREATHING PATTERN. absent: Rhonchi, Respiratory Distress - Cardiovascular Exam Cardiovascular Exam: REGULAR RHYTHM, +S1, +S2 - GI/Abdominal Exam GI & Abdominal Exam: Soft, Normal Bowel Sounds. absent: Distended, Tenderness - Extremities Exam Extremities Exam: absent: Pedal Edema, Tenderness - Neurological Exam Neurological Exam: Alert, Awake, Oriented x3 - Psychiatric Exam Psychiatric exam: Normal Affect, Normal Mood - Skin Skin Exam: Dry, Intact, Normal Color, Warm Assessment and Plan (1) Neutropenic fever Assessment & Plan: Continue empiric antibiotics Maurice culture: no growth Status: Acute (2) Pancytopenia Assessment & Plan: Growth factor support discontinued, ANC is >500 Transfusion support PRN. Status: Acute (3) Hodgkin lymphoma Assessment & Plan: On salvage ICE. Will need bone marrow transplant evaluation as outpatient. Status: Acute
--- NOTE | 2017-06-13 14:05 | CP.PCM.PN ---
Subjective - Date & Time of Evaluation Date of Evaluation: 06/13/17 Time of Evaluation: 13:52 - Subjective Subjective: Internal Medicine Progress note for Dr. Mcmanus Patient seen and examined at bedside. Patient reports no acute events overnight. Patient states she wants to go home to see her baby. Patient denies difficulty breathing more than normal, nausea, headache, chest pain, diarrhea. Patient explained the MRCP results and that she will have an ERCP in the future. Objective - Vital Signs/Intake and Output Vital Signs (last 24 hours): Temp Pulse Resp BP Pulse Ox 97.6 F 58 L 20 94/55 L 100 06/13/17 08:00 06/13/17 08:00 06/13/17 08:00 06/13/17 08:00 06/13/17 08:00 Intake and Output: 06/13/17 06/13/17 06:59 18:59 Intake Total 550 Balance 550 - Medications Medications: Current Medications Albuterol (Ventolin Hfa 90 Mcg/Actuation (8 G)) 1 puff INH RQ6 PRN PRN Reason: Shortness of Breath Allopurinol (Zyloprim) 300 mg PO DAILY [facility] Last Admin: 06/13/17 10:55 Dose: 300 mg Docusate Sodium (Colace) 100 mg PO TID [facility] Last Admin: 06/13/17 10:53 Dose: 100 mg Guaifenesin (Mucinex La) 600 mg PO BID [facility] Last Admin: 06/13/17 10:53 Dose: 600 mg Potassium Chloride/Dextrose/Sod Cl (Potassium Chl 40 Meq In D5-1/2ns) 1,000 mls @ 50 mls/hr IV .Q20H [facility] Last Admin: 06/13/17 06:24 Dose: Not Given Morphine Sulfate (Morphine) 2 mg IVP Q4H PRN PRN Reason: Pain, moderate (4-7) Last Admin: 06/11/17 22:06 Dose: 2 mg Ondansetron HCl (Zofran Inj) 4 mg IVP Q6 PRN PRN Reason: Nausea/Vomiting Last Admin: 06/12/17 17:52 Dose: 4 mg Promethazine HCl/Codeine (Phenergan/Codeine Oral Syrup) 5 ml PO Q4 PRN PRN Reason: Cough Last Admin: 06/09/17 18:07 Dose: 5 ml Saccharomyces Boulardii (Florastor) 250 mg PO BID [facility] Last Admin: 06/13/17 10:53 Dose: 250 mg - Labs Labs: 06/13/17 06:14 06/13/17 06:14 PT 18.2 SECONDS (9.7-12.2) H 06/06/17 13:04 INR 1.6 06/06/17 13:04 APTT 30 SECONDS (21-34) 06/06/17 13:04 - Constitutional Appears: Non-toxic - Head Exam Head Exam: NORMAL INSPECTION - Eye Exam Eye Exam: EOMI, Normal appearance - ENT Exam ENT Exam: Mucous Membranes Moist - Neck Exam Neck Exam: Full ROM. absent: Tenderness - Respiratory Exam Respiratory Exam: Wheezes, NORMAL BREATHING PATTERN. absent: Accessory Muscle Use, Respiratory Distress - Cardiovascular Exam Cardiovascular Exam: REGULAR RHYTHM, +S1, +S2. absent: Bradycardia, Tachycardia - GI/Abdominal Exam GI & Abdominal Exam: Soft. absent: Tenderness - Extremities Exam Extremities Exam: absent: Joint Swelling, Pedal Edema - Back Exam Back Exam: Full ROM, NORMAL INSPECTION - Neurological Exam Neurological Exam: Alert, Awake, Oriented x3 - Psychiatric Exam Psychiatric exam: Normal Affect, Normal Mood. absent: Flat Affect - Skin Skin Exam: Dry, Intact, Normal Color, Warm Assessment and Plan - Assessment and Plan (Free Text) Assessment: Neutropenic Fever * Tmax 102.2, currently afebrile * Heme/onc consult: Dr. Blackwell * ID Consult: Dr. Salazar * Patient given one dose of Granix in the ED.Patient received 1300mL NS bolus in ED.Patient given an additional of 1.5 liters of NS bolus.CXR (06/06): Right- sided MediPort extends expected location of the cavoatrial junction.Patchy opacity seen adjacent to the MediPort hub, possibly atelectasis or consolidation ; nodule cannot be excluded. Right hilar/perihilar opacity may also reflect infiltrate. Mild left basilar atelectasis.Probable bilateral tiny pleural effusions. Mild cardiomegaly. * CTA chest (06/06): No pulmonary Embolism noted. Compared to a prior CT of 2016, development of multifocal areas of cavitation in the right lung, located in areas of dense consolidation, suspicious for a cavitary pneumonia. Fungal or mycobacterial pneumonia could have this appearance. The overall degree of consolidation in the right lung appears decreased, however. - Otherwise, no obvious new, acute findings. No evidence of pulmonary embolism. - Stable appearance of a large 7 cm cavitary lesion in the right upper lobe. - Grossly stable appearance of extensive, infiltrative soft tissue in the mediastinum and june bilaterally, greater on the right, suspicious for infiltrative lymphadenopathy. This causes narrowing of the airways on the right. - Moderate right pleural effusion, mildly decreased in size. * Procal: 3.33, 06/11 Procal: 0.68 * Mycoplasma, rapid flu, rapid strep test - NEGATIVE Continue with: * Maintenance fluids: NS 100cc/hr * Meropenem 1 gm IV Q8H (started on 06/06), Discontinued per Dr. Salazar 06/13 * 06/10 vanco trough 8.9 * Tylenol PRN * monitor for fevers, antibiotics discontinued, discharge tomorrow if [address] Salazar Culture 06/09 Blood culture: negative Urine Culture: gram negative rods 06/06 <10,000 cFu, 06/09 no growth Cholelithiasis * Elevated T.bili - 1.4, transaminitis * Abdominal US 06/10 : Cholelithiasis. There is a 6 mm calculus within the distal common bile duct which is slightly dilated at 5.3 mm. Abdominal and pelvic ascites. Mild hepatomegaly with fatty infiltration however other infiltrative hepatocellular disease process not excluded. Small right pleural effusion. * GI consult: Dr. Pressley * MRCP by GI 7mm filling defect noted in CBD. ERCP in future, follow up GI recommendations: optimization with platelets above 50, pulmonology clearance with documentation * Pulmonology Consulted * follow up Dr. Blackwell's recommendation for platelet transfusion Hx of Hodgkin's Lymphoma with Right Chest Port * Heme-Onc: James Blackwell on the case * patient is on salvage ICE therapy Previous records from prior admission: * Per heme-onc, need tissue biopsy for re-diagnosis if this is the same cancer, previously diagnosed for 2013-->f/u IR lymph nody biopsy (05/18/17)-->Pathology--> classical Hodgkin's Lymphoma (Discussed with Dr. Welch, pathology) from lymph node biopsy; discussed with ICU and Heme-Onc setup for inpatient chemotherapy-->patient start chemotherapy 05/24 on the ICE Regimen * Patient is currently on ICE Regimen for classical Hodgkin's lymphoma since ; on prophylaxis for tumor lysis; will need outpatient bone marrow transplant evaluation. Completed 1st week of chemotherapy. * Chemotherapy regimen (hand written chemo orders in the chart) * Etoposide 150mg IV X1 (05/24-05/26) * Carboplatin 700mg X1 (05/25) * Ifosfomide 7500mg X1 (05/25) * Mesna 7500mg IV (05/25) Prior documentation: * Per [facility] documentation: untreated Hodgkin lymphoma w new mass on the left side of the neck for advancing Hodgkin lymphoma; Chemo with ABVD in 2014 advised to f/u heme-onc upon discharge; she has diagnosed with hodgkins lymphoma in 02/2014 but had declined any treatment at time of biopsy, but in 2014 had chemo; her prior echo without effusion and normal EF (06/2015) included in the paper documentation * Hodgkin disease, modular sclerosing type stage II (per 02/18/14 note) * Unclear regarding s/p 2014 regarding chemo/onc; patient has 6 month old child ; unclear [id number] regarding management onc; spoke with patient's cousin Ricardo and he was no aware regarding this time frame; and status disrupting chemo? Patient has 6 month Patient's parents are in [place]. She lives with an unspecified cousin. Her male cousin Ricardo Ellis [phone] was present at the time of my cousin and at present is the primary decision maker for patient. He signed a records release form for [facility] and this was placed in the front of patient chart. Documentation from [facility] is in front of the chart. (hx of biopsy, hospitalization in 2014, and prior echo noted). There is no living will nor advance directive included in the documentation per review Cousin Ricardo Ellis has been instructed by my colleague to find out if patient has any medical records at her residence as well as if there is a Living Will/Advance Directive and bring these things in for our review. Anemia * Likely Secondary to anemia of chronic disease HL, chemotherapy * Iron Studies 05/08/17 showed Total Iron low at 20, TIBC normal at 382, and % Sat low at 5 * 06/08 Received 3 units PRBCs in total and 1 unit of platelets * Monitor H/H and platelets History of Asthma * Albuterol Q6 prn dyspnea * Mucinex 600 mg PO BID * Promethazine with codeine 5 ml PO Q4H prn * Dr. Yanely cardoso consulted, help appreciated Hx of Sinus Tachycardia with Elevated Troponin on Previous admission This admission: * Sinus tachycardia 2/2 anemia * CTA: NO PE Prior admission: * Miter Cutter Dr. Joya * SVT on 05/28 * Sinus tachycardia * Ordered for repeat echo and chest xray PA and lateral-->negative for acute findings * 2D Echocardiogram (05/07/17): EF: 60-70% systolic (official report available in the chart) * CT Chest: no PE (from 05/09/17) Prophylatic Measures * PT/OT EVAL: not performed due to neutropenia, plt * Feed Handler referral * Started on regular diet as requested by patient, patient is tolerating diet well Vania Cabrera DO PGY1
[2017-06-13] MEDS ORDERED: Magnesium Sulfate 1 gm in D5W 1 GM/100 ML BAG IVPB ONE (15:45)
[2017-06-14] MEDS: Potassium Chl 40 mEq in D5-1/2 1,000 ML IV SCH (02:45)
[2017-06-14 07:15] LABS: BASO % 0.3 % (0.0-2.0); HEMATOCRIT 28.1 % (34.0-47.0); LYMPH # 1.1 K/uL (1.0-4.3); MEAN CELL VOLUME 80.2 fL (81.0-99.0); MEAN CORPUSCULAR HEMOGLOBIN 26.4 pg (27.0-31.0); MEAN CORPUSCULAR HGB CONC 32.9 g/dL (33.0-37.0); MONO # 0.7 K/uL (0.0-0.8); MONO % 21.4 % (0.0-10.0); NRBC % 0.1 % (0.0-2.0); PLATELET COUNT 105 K/uL (130-400); RED CELL DISTRIBUTION WIDTH 19.8 % (11.5-14.5); WHITE BLOOD COUNT 3.1 K/uL (4.8-10.8)
[2017-06-14 07:17] LABS: CHLORIDE 92 mmol/L (98-107); POTASSIUM 4.1 mmol/L (3.6-5.2); SODIUM 135 mmol/L (132-148)
[2017-06-14 07:19] LABS: ALB/GLOB RATIO 0.7 (1.0-2.1); ALKALINE PHOSPHATASE 190 U/L (38-126); ALT/SGPT 42 U/L (9-52); AST/SGOT 35 U/L (14-36); BILIRUBIN,TOTAL 0.5 mg/dL (0.2-1.3); BLOOD UREA NITROGEN 4 mg/dL (7-17); CARBON DIOXIDE 36 mmol/L (22-30); GFR AFRICAN-AMERICAN > 60; TOTAL PROTEIN 6.1 g/dL (6.3-8.3)
[2017-06-14 07:20] LABS: CALCIUM 8.3 mg/dl (8.6-10.4); GLUCOSE,RANDOM 81 mg/dL (65-105); MAGNESIUM 1.9 mg/dL (1.6-2.3); PHOSPHOROUS 3.5 mg/dL (2.5-4.5)
[2017-06-14 08:48] LABS: NEUTROPHIL 41 % (50-75); TOTAL CELLS COUNTED 100
--- NOTE | 2017-06-14 09:37 | CP.PCM.PN ---
<Kyara Mac - Last Filed: 06/14/17 09:36> Subjective - Date & Time of Evaluation Date of Evaluation: 06/14/17 Time of Evaluation: 09:36 Objective - Vital Signs/Intake and Output Vital Signs (last 24 hours): Temp Pulse Resp BP Pulse Ox 97.8 F 61 20 107/69 99 06/14/17 07:00 06/14/17 08:00 06/14/17 07:00 06/14/17 07:00 06/14/17 07:00 Intake and Output: 06/14/17 06/14/17 06:59 18:59 Intake Total 1200 Balance 1200 - Medications Medications: Current Medications Albuterol (Ventolin Hfa 90 Mcg/Actuation (8 G)) 1 puff INH RQ6 PRN PRN Reason: Shortness of Breath Allopurinol (Zyloprim) 300 mg PO DAILY [facility] Last Admin: 06/13/17 10:55 Dose: 300 mg Docusate Sodium (Colace) 100 mg PO TID [facility] Last Admin: 06/13/17 18:18 Dose: 100 mg Guaifenesin (Mucinex La) 600 mg PO BID [facility] Last Admin: 06/13/17 18:18 Dose: 600 mg Potassium Chloride/Dextrose/Sod Cl (Potassium Chl 40 Meq In D5-1/2ns) 1,000 mls @ 50 mls/hr IV .Q20H [facility] Last Admin: 06/14/17 02:45 Dose: Not Given Morphine Sulfate (Morphine) 2 mg IVP Q4H PRN PRN Reason: Pain, moderate (4-7) Last Admin: 06/11/17 22:06 Dose: 2 mg Ondansetron HCl (Zofran Inj) 4 mg IVP Q6 PRN PRN Reason: Nausea/Vomiting Last Admin: 06/12/17 17:52 Dose: 4 mg Promethazine HCl/Codeine (Phenergan/Codeine Oral Syrup) 5 ml PO Q4 PRN PRN Reason: Cough Last Admin: 06/09/17 18:07 Dose: 5 ml Saccharomyces Boulardii (Florastor) 250 mg PO BID [facility] Last Admin: 06/13/17 18:18 Dose: 250 mg - Labs Labs: 06/14/17 06:54 06/14/17 06:54 PT 18.2 SECONDS (9.7-12.2) H 06/06/17 13:04 INR 1.6 06/06/17 13:04 APTT 30 SECONDS (21-34) 06/06/17 13:04 Assessment and Plan (1) Neutropenic fever Assessment & Plan: Continue empiric antibiotics Maurice culture: no growth Status: Acute (2) Pancytopenia Assessment & Plan: Growth factor support discontinued, ANC is >500 Transfusion support PRN. Status: Acute (3) Hodgkin lymphoma Assessment & Plan: On salvage ICE. Will need bone marrow transplant evaluation as outpatient. Status: Acute <Bharat Mcmanus - Last Filed: 06/14/17 10:00> Subjective - Subjective Subjective: Please see below Objective - Vital Signs/Intake and Output Vital Signs (last 24 hours): Temp Pulse Resp BP Pulse Ox 97.8 F 61 20 107/69 99 06/14/17 07:00 06/14/17 08:00 06/14/17 07:00 06/14/17 07:00 06/14/17 07:00 Intake and Output: 06/14/17 06/14/17 06:59 18:59 Intake Total 1200 Balance 1200 - Medications Medications: Current Medications Albuterol (Ventolin Hfa 90 Mcg/Actuation (8 G)) 1 puff INH RQ6 PRN PRN Reason: Shortness of Breath Allopurinol (Zyloprim) 300 mg PO DAILY [facility] Last Admin: 06/13/17 10:55 Dose: 300 mg Docusate Sodium (Colace) 100 mg PO TID [facility] Last Admin: 06/13/17 18:18 Dose: 100 mg Guaifenesin (Mucinex La) 600 mg PO BID [facility] Last Admin: 06/13/17 18:18 Dose: 600 mg Potassium Chloride/Dextrose/Sod Cl (Potassium Chl 40 Meq In D5-1/2ns) 1,000 mls @ 50 mls/hr IV .Q20H [facility] Last Admin: 06/14/17 02:45 Dose: Not Given Morphine Sulfate (Morphine) 2 mg IVP Q4H PRN PRN Reason: Pain, moderate (4-7) Last Admin: 06/11/17 22:06 Dose: 2 mg Ondansetron HCl (Zofran Inj) 4 mg IVP Q6 PRN PRN Reason: Nausea/Vomiting Last Admin: 06/12/17 17:52 Dose: 4 mg Promethazine HCl/Codeine (Phenergan/Codeine Oral Syrup) 5 ml PO Q4 PRN PRN Reason: Cough Last Admin: 06/09/17 18:07 Dose: 5 ml Saccharomyces Boulardii (Florastor) 250 mg PO BID [facility] Last Admin: 06/13/17 18:18 Dose: 250 mg - Labs Labs: 06/14/17 06:54 06/14/17 06:54 PT 18.2 SECONDS (9.7-12.2) H 06/06/17 13:04 INR 1.6 06/06/17 13:04 APTT 30 SECONDS (21-34) 06/06/17 13:04 Attending/Attestation - Attestation I have personally seen and examined this patient.: Yes I have fully participated in the care of the patient.: Yes I have reviewed all pertinent clinical information, including history, physical exam and plan: Yes Notes (Text): 06/14/17 09:49 Hospitalist Progress Note Patient was seen and examined at 9:30 AM 06/14/17 Upon ROS: NO chest pain NO palpitations NO SOB/Cough/Wheezing NO lightheadedness/dizziness NO paresthesias NO abdominal pain NO n/v/d/c (last bowel movement was this morning) NO burning/pain with urination NO headaches NO new changes in vision NO new changes in hearing Physical Exam: - Constitutional Appears: Non-toxic, No Acute Distress, Younger Than Stated Age - Head Exam Head Exam: NORMAL INSPECTION - Eye Exam Eye Exam: EOMI. absent: Nystagmus, Scleral icterus, Right Pupil is slightly larger in size compared to the Left however both are round/reactive to light and accomodation - ENT Exam ENT Exam: Mucous Membranes Moist - Respiratory Exam Respiratory Exam: CTA B/L NO R/R/W - Cardiovascular Exam Cardiovascular Exam: REGULAR RHYTHM, +S1, +S2. absent: JVD - GI/Abdominal Exam GI & Abdominal Exam: Soft, Normal Bowel Sounds. absent: Distended, Firm, Guarding, Rigid, Tenderness, Rebound - Extremities Exam Extremities Exam: Normal Capillary Refill. absent: Joint Swelling, Pedal Edema , Tenderness - Neurological Exam Neurological Exam: Alert, Awake, Oriented x3 - Psychiatric Exam Psychiatric exam: Normal Affect, Normal Mood - Skin Skin Exam: Dry, Intact, Normal Color, Warm Assessments: 1).Neutropenic Fever: Received Granix. Received 7 days of Meropenem 1 gm IV Q8H from 06/06/17 through 06/12/17. Blood Culture 06/06/17 and 06/07/17 negative. Urine Culture 06/09/17 no growth. WBC is stable 2). Cholelithiasis: tolerating diet, AST/ALT/T Bili are normal and ALk Phos is trending down, NO Pain. Seen by GI Dr. Pressley and as LFTs are improved and patient tolerating diet hold off on Endoscopic U/S with/without ERCP for now considering sedation may cause patient to go into respiratory failure considering her recent history. Patient will need to follow up with GI Clinic through [facility] and procedure is decided upon then patient will need Pulmonary Clearance for this. 3). Hx Hodgkin's Lymphoma 4). Hx Acute Hypercapneic Respiratory Failure 5). Hx of Septic Shock 6). Hx Sinus Tachycardia/Elevated Troponin 7). Hx Anemia Likely Secondary to Iron Deficiency/Hodgkin's Lymphoma 8). Hx Ichemic/Shock Liver Patient is stable for discharge: The following instructions should be provided to patient upon discharge and included by the resident in discharge summary: 1). Please follow up with the [facility] located on Floor 3 of the hospital. Your appointment is scheduled for Monday06/20/17 at 8 AM morning. You will be having blood work done which will be reviewed by Licensed Reactor Operator/Oncologist Dr. Scott Blackwell. Based upon the results he will then schedule you for your next round of Chemotherapy. 2). Please follow up with the [facility] located on Floor B of the hospital. You may call them at [phone] to schedule this appointment. If you have difficulty scheduling the appointment by phone, then stop by Floor B of [facility] on 06/20/17 after you finish up at the Infusion Center to schedule your appointment in person. [facility] be your primary care doctors and help you to coordinate your health care as well as provide you with prescriptions for future refills on your medications. They will also help you schedule your follow up with Gastroenterology Clinic for follow up for your stones in the gallbladder. 3). Please have the following prescriptions filled at your pharmacy and take as directed: Allopurinol 400 mg, 1 tablet by mouth 2x/day (breakfast and dinner), Disp #60, NO refills: This is to help make sure your uric acid level remains low as it can become high with chemotherapy Colace 100 mg, 1 tablet by mouth 3 times a day only if you do not have a bowel movement for 3 days, Stop taking once you have a bowel movement. Disp #30, NO refills Dronabinol 2.5 mg, 1 tablet by mouth 2 times day only if you have nausea, Disp # 30, NO refills Ferrous Sulfate 325 mg, 1 tablet by mouth 2 times a day (breakfast and dinner), Disp #60, NO refills 4). Please take care and be well. Bharat Mcmanus D.O.
[2017-06-14] MEDS: Saccharomyces Boulardi 250 mg Cap PO SCH (10:00)
[2017-06-14] MEDS: guaiFENesin 600 mg ER Tab PO SCH (10:00)
--- NOTE | 2017-06-14 10:10 | CP.PCM.PN ---
Subjective - Date & Time of Evaluation Date of Evaluation: 06/20/17 Time of Evaluation: 09:30 - Subjective Subjective: Hospitalist Progress Note Patient was seen and examined at 9:30 AM 06/14/17 Upon ROS: NO chest pain NO palpitations NO SOB/Cough/Wheezing NO lightheadedness/dizziness NO paresthesias NO abdominal pain NO n/v/d/c (last bowel movement was this morning) NO burning/pain with urination NO headaches NO new changes in vision NO new changes in hearing Physical Exam: - Constitutional Appears: Non-toxic, No Acute Distress, Younger Than Stated Age - Head Exam Head Exam: NORMAL INSPECTION - Eye Exam Eye Exam: EOMI. absent: Nystagmus, Scleral icterus, Right Pupil is slightly larger in size compared to the Left however both are round/reactive to light and accomodation - ENT Exam ENT Exam: Mucous Membranes Moist - Respiratory Exam Respiratory Exam: CTA B/L NO R/R/W - Cardiovascular Exam Cardiovascular Exam: REGULAR RHYTHM, +S1, +S2. absent: JVD - GI/Abdominal Exam GI & Abdominal Exam: Soft, Normal Bowel Sounds. absent: Distended, Firm, Guarding, Rigid, Tenderness, Rebound - Extremities Exam Extremities Exam: Normal Capillary Refill. absent: Joint Swelling, Pedal Edema , Tenderness - Neurological Exam Neurological Exam: Alert, Awake, Oriented x3 - Psychiatric Exam Psychiatric exam: Normal Affect, Normal Mood - Skin Skin Exam: Dry, Intact, Normal Color, Warm Assessments: 1).Neutropenic Fever: Received Granix. Received 7 days of Meropenem 1 gm IV Q8H from 06/06/17 through 06/12/17. Blood Culture 06/06/17 and 06/07/17 negative. Urine Culture 06/09/17 no growth. WBC is stable 2). Cholelithiasis: tolerating diet, AST/ALT/T Bili are normal and ALk Phos is trending down, NO Pain. Seen by GI Dr. Pressley and as LFTs are improved and patient tolerating diet hold off on Endoscopic U/S with/without ERCP for now considering sedation may cause patient to go into respiratory failure considering her recent history. Patient will need to follow up with GI Clinic through [facility] and procedure is decided upon then patient will need Pulmonary Clearance for this. 3). Hx Hodgkin's Lymphoma 4). Hx Acute Hypercapneic Respiratory Failure 5). Hx of Septic Shock 6). Hx Sinus Tachycardia/Elevated Troponin 7). Hx Anemia Likely Secondary to Iron Deficiency/Hodgkin's Lymphoma 8). Hx Ichemic/Shock Liver Patient is stable for discharge: The following instructions should be provided to patient upon discharge and included by the resident in discharge summary: 1). Please follow up with the [facility] located on Floor 3 of the hospital. Your appointment is scheduled for Monday06/20/17 at 8 AM morning. You will be having blood work done which will be reviewed by Private Advisor/Oncologist Dr. Scott Blackwell. Based upon the results he will then schedule you for your next round of Chemotherapy. 2). Please follow up with the [facility] located on Floor B of the hospital. You may call them at [phone] to schedule this appointment. If you have difficulty scheduling the appointment by phone, then stop by Floor B of [facility] on 06/20/17 after you finish up at the Infusion Center to schedule your appointment in person. The doctors at this health center will be your primary care doctors and help you to coordinate your health care as well as provide you with prescriptions for future refills on your medications. They will also help you schedule your follow up with Gastroenterology Clinic for follow up for your stones in the gallbladder. 3). Please have the following prescriptions filled at your pharmacy and take as directed: Allopurinol 400 mg, 1 tablet by mouth 2x/day (breakfast and dinner), Disp #60, NO refills: This is to help make sure your uric acid level remains low as it can become high with chemotherapy Colace 100 mg, 1 tablet by mouth 3 times a day only if you do not have a bowel movement for 3 days, Stop taking once you have a bowel movement. Disp #30, NO refills Dronabinol 2.5 mg, 1 tablet by mouth 2 times day only if you have nausea, Disp # 30, NO refills Ferrous Sulfate 325 mg, 1 tablet by mouth 2 times a day (breakfast and dinner), Disp #60, NO refills 4). Please take care and be well. Bharat Mcmanus D.O. Objective - Vital Signs/Intake and Output Vital Signs (last 24 hours): Temp Pulse Resp BP Pulse Ox 97.8 F 61 20 107/69 99 06/14/17 07:00 06/14/17 08:00 06/14/17 07:00 06/14/17 07:00 06/14/17 07:00 Intake and Output: 06/14/17 06/14/17 06:59 18:59 Intake Total 1200 Balance 1200 - Medications Medications: Current Medications Albuterol (Ventolin Hfa 90 Mcg/Actuation (8 G)) 1 puff INH RQ6 PRN PRN Reason: Shortness of Breath Allopurinol (Zyloprim) 300 mg PO DAILY [facility] Last Admin: 06/13/17 10:55 Dose: 300 mg Docusate Sodium (Colace) 100 mg PO TID [facility] Last Admin: 06/13/17 18:18 Dose: 100 mg Guaifenesin (Mucinex La) 600 mg PO BID [facility] Last Admin: 06/13/17 18:18 Dose: 600 mg Potassium Chloride/Dextrose/Sod Cl (Potassium Chl 40 Meq In D5-1/2ns) 1,000 mls @ 50 mls/hr IV .Q20H [facility] Last Admin: 06/14/17 02:45 Dose: Not Given Morphine Sulfate (Morphine) 2 mg IVP Q4H PRN PRN Reason: Pain, moderate (4-7) Last Admin: 06/11/17 22:06 Dose: 2 mg Ondansetron HCl (Zofran Inj) 4 mg IVP Q6 PRN PRN Reason: Nausea/Vomiting Last Admin: 06/12/17 17:52 Dose: 4 mg Promethazine HCl/Codeine (Phenergan/Codeine Oral Syrup) 5 ml PO Q4 PRN PRN Reason: Cough Last Admin: 06/09/17 18:07 Dose: 5 ml Saccharomyces Boulardii (Florastor) 250 mg PO BID [facility] Last Admin: 06/13/17 18:18 Dose: 250 mg - Labs Labs: 06/14/17 06:54 06/14/17 06:54 PT 18.2 SECONDS (9.7-12.2) H 06/06/17 13:04 INR 1.6 06/06/17 13:04 APTT 30 SECONDS (21-34) 06/06/17 13:04
--- NOTE | 2017-06-14 10:31 | CP.PCM.DIS ---
Provider - Provider Date of Admission: 06/06/17 13:23 Attending physician: Kong Dick MD Consults: Dr. Salazar (ID) Dr. Blackwell (heme/onc) Dr. Ny (pulm) Time Spent in preparation of Discharge (in minutes): 45 Hospital Course - Lab Results Lab Results: Micro Results 06/09/17 13:39 Blood-Venous Blood Culture - Preliminary NO GROWTH AFTER 4 DAYS 06/09/17 11:30 Blood-Venous Blood Culture - Preliminary NO GROWTH AFTER 4 DAYS 06/06/17 12:30 Blood Blood Culture - Final NO GROWTH AFTER 5 DAYS 06/06/17 12:30 Blood Gram Stain - Final TEST NOT PERFORMED 06/06/17 12:00 Blood Blood Culture - Final NO GROWTH AFTER 5 DAYS 06/06/17 12:00 Blood Gram Stain - Final TEST NOT PERFORMED 06/09/17 14:22 Urine,Catheterized Urine Culture - Final No Growth (<1,000 CFU/ML) 06/06/17 17:47 Throat Group A Strep Throat Culture - Final NO BETA STREP GROUP A ISOLATED. 06/06/17 Unknown Urine,Clean Catch Urine Culture - Final Gram Negative Alejandro Most Recent Lab Values WBC 3.1 K/uL (4.8-10.8) L 06/14/17 06:54 RBC 3.50 Mil/uL (3.80-5.20) L 06/14/17 06:54 Hgb 9.2 g/dL (11.0-16.0) L 06/14/17 06:54 Hct 28.1 % (34.0-47.0) L 06/14/17 06:54 MCV 80.2 fL (81.0-99.0) L 06/14/17 06:54 MCH 26.4 pg (27.0-31.0) L 06/14/17 06:54 MCHC 32.9 g/dL (33.0-37.0) L 06/14/17 06:54 RDW 19.8 % (11.5-14.5) H 06/14/17 06:54 Plt Count 105 K/uL (130-400) L D 06/14/17 06:54 MPV 8.0 fL (7.2-11.7) 06/14/17 06:54 Neut % (Auto) 43.3 % (50.0-75.0) L 06/14/17 06:54 Lymph % (Auto) 35.0 % (20.0-40.0) 06/14/17 06:54 Burke % (Auto) 21.4 % (0.0-10.0) H 06/14/17 06:54 Eos % (Auto) 0.0 % (0.0-4.0) 06/14/17 06:54 Baso % (Auto) 0.3 % (0.0-2.0) 06/14/17 06:54 Neut # 1.3 K/uL (1.8-7.0) L 06/14/17 06:54 Lymph # 1.1 K/uL (1.0-4.3) 06/14/17 06:54 Burke # 0.7 K/uL (0.0-0.8) 06/14/17 06:54 Eos # 0.0 K/uL (0.0-0.7) 06/14/17 06:54 Baso # 0.0 K/uL (0.0-0.2) 06/14/17 06:54 Neutrophils % (Manual) 41 % (50-75) L 06/14/17 06:54 Band Neutrophils % 6 % (0-2) H 06/11/17 08:19 Lymphocytes % (Manual) 39 % (20-40) 06/14/17 06:54 Reactive Lymphs % 1 % (0-0) H 06/11/17 08:19 Monocytes % (Manual) 20 % (0-10) H 06/14/17 06:54 Myelocytes % 1 % (0-0) H 06/09/17 07:37 Differential Comment 06/12/17 07:06 Toxic Granulation Present 06/09/17 07:37 Dohle Bodies Present 06/09/17 07:37 Platelet Estimate Slightly decreased (NORMAL) L 06/14/17 06:54 Polychromasia Slight 06/11/17 08:19 Hypochromasia (manual) Slight 06/14/17 06:54 Poikilocytosis (manual Slight 06/14/17 06:54 Anisocytosis (manual) Slight 06/14/17 06:54 Microcytosis (manual) Slight 06/14/17 06:54 Macrocytosis (manual) Slight 06/14/17 06:54 Spherocytes Slight 06/11/17 08:19 Target Cells Slight 06/07/17 08:12 Tear Drop Cells Slight 06/14/17 06:54 Ovalocytes Slight 06/11/17 08:19 [place] Cells Slight 06/07/17 08:12 PT 18.2 SECONDS (9.7-12.2) H 06/06/17 13:04 INR 1.6 06/06/17 13:04 APTT 30 SECONDS (21-34) 06/06/17 13:04 pO2 24 mm/Hg (30-55) L 06/06/17 14:29 VBG pH 7.40 (7.32-7.43) 06/06/17 14:29 VBG pCO2 40 mmHg (40-60) 06/06/17 14:29 VBG HCO3 23.4 mmol/L 06/06/17 14:29 VBG Total CO2 26.0 mmol/L (22-28) 06/06/17 14:29 VBG O2 Sat (Calc) 43.6 % (40-65) 06/06/17 14:29 VBG Base Excess 0.0 mmol/L (0.0-2.0) 06/06/17 14:29 VBG Potassium 3.0 mmol/L (3.6-5.2) L 06/06/17 14:29 Sodium 132.0 mmol/l (132-148) 06/06/17 14:29 Chloride 100.0 mmol/L (98-107) 06/06/17 14:29 Glucose 91 mg/dl (65-105) 06/06/17 14:29 Lactate 1.1 mmol/L (0.7-2.1) 06/06/17 14:29 Sodium 135 mmol/L (132-148) 06/14/17 06:54 Potassium 4.1 mmol/L (3.6-5.2) 06/14/17 06:54 Chloride 92 mmol/L (98-107) L 06/14/17 06:54 Carbon Dioxide 36 mmol/L (22-30) H 06/14/17 06:54 Anion Gap 11 (10-20) 06/14/17 06:54 BUN 4 mg/dL (7-17) L 06/14/17 06:54 Creatinine 0.3 mg/dL (0.7-1.2) L 06/14/17 06:54 Est GFR ( Amer) > 60 06/14/17 06:54 Est GFR (Non-Af Amer) > 60 06/14/17 06:54 Random Glucose 81 mg/dL (65-105) 06/14/17 06:54 Calcium 8.3 mg/dl (8.6-10.4) L 06/14/17 06:54 Phosphorus 3.5 mg/dL (2.5-4.5) 06/14/17 06:54 Magnesium 1.9 mg/dL (1.6-2.3) 06/14/17 06:54 Total Bilirubin 0.5 mg/dL (0.2-1.3) 06/14/17 06:54 Direct Bilirubin 1.5 mg/dL (0.0-0.4) H 06/12/17 07:06 AST 35 U/L (14-36) 06/14/17 06:54 ALT 42 U/L (9-52) 06/14/17 06:54 Alkaline Phosphatase 190 U/L (38-126) H D 06/14/17 06:54 Total Protein 6.1 g/dL (6.3-8.3) L 06/14/17 06:54 Albumin 2.6 g/dL (3.5-5.0) L 06/14/17 06:54 Globulin 3.6 gm/dL (2.2-3.9) 06/14/17 06:54 Albumin/Globulin Ratio 0.7 (1.0-2.1) L 06/14/17 06:54 Lipase 29 U/L (23-300) 06/11/17 08:19 Procalcitonin 0.68 NG/ML (0.19-0.49) H 06/11/17 08:19 Venous Blood Potassium 3.0 mmol/L (3.6-5.2) L 06/06/17 14:29 Urine Color Yellow (YELLOW) 06/06/17 12:56 Urine Clarity Hazy (Clear) 06/06/17 12:56 Urine pH 6.0 (5.0-8.0) 06/06/17 12:56 Ur Specific [place] 1.016 (1.003-1.030) 06/06/17 12:56 Urine Protein 2+ mg/dL (NEGATIVE) H 06/06/17 12:56 Urine Glucose (UA) Normal mg/dL (Normal) 06/06/17 12:56 Urine Ketones Negative mg/dL (NEGATIVE) 06/06/17 12:56 Urine Blood 1+ (NEGATIVE) H 06/06/17 12:56 Urine Nitrate Negative (NEGATIVE) 06/06/17 12:56 Urine Bilirubin Negative (NEGATIVE) 06/06/17 12:56 Urine Urobilinogen 2.0 mg/dL (0.2-1.0) H 06/06/17 12:56 Ur Leukocyte Esterase Neg Cristal/uL (Negative) 06/06/17 12:56 Urine WBC (Auto) 3 /hpf (0-5) 06/06/17 12:56 Urine RBC (Auto) 3 /hpf (0-3) 06/06/17 12:56 Ur Squamous Epith Cells 6 /hpf (0-5) H 06/06/17 12:56 Urine Bacteria Rare (<OCC) 06/06/17 12:56 Urine HCG, Qual Negative (NEGATIVE) 06/06/17 12:56 Vancomycin Trough 8.9 ug/mL (5.0-10.0) 06/10/17 12:02 Influenza Typ A,B (EIA) Negative for flu a/b (NEGATIVE) 06/06/17 11:04 Mycoplasma pneumon IgM Negative (NEGATIVE) 06/06/17 16:28 Grp A Beta Strep Ag Negative (NEGATIVE) 06/06/17 17:47 Blood Type AB POSITIVE 06/06/17 14:01 Antibody Screen Negative 06/06/17 14:01 - Hospital Course Hospital Course: "CC: Fever This is a 26 year old female with PMHx Hodgkin's Lymphoma, asthma who presented complaining of fevers for the past 2 days. Patient denied any recent chills, chest pain, wheezing, abdominal pain, nausea, vomiting, constipation, diarrhea, dysuria. Patient stated that she was completely asymptomatic except for the fever. Patient does state though that she is short of breath once intermittently , and within the past hour she has started experiencing a dry cough. Patient denies rhinorrhea, post nasal drip. Patient does complain of sore throat from repeated prior intubation and extubations. Patient denies any feelings of weakness and states that she does ambulate intermittently. Per family, patient is otherwise eating well with much improved appetite from before." Hospital Course: Neutropenic Fever: Received Granix. Received 7 days of Meropenem 1 gm IV Q8H from 06/06/17 through 06/12/17. Blood Culture 06/06/17 and 06/07/17 negative. Urine Culture 06/09/17 no growth. WBC is stable. Cholelithiasis: Abdominal US 06/10 showed cholelithiasis. There is a 6 mm calculus within the distal common bile duct which is slightly dilated at 5.3 mm. Abdominal and pelvic ascites. Mild hepatomegaly with fatty infiltration however other infiltrative hepatocellular disease process not excluded. Small right pleural effusion. MRCP by GI 7mm filling defect noted in CBD. Patient tolerating diet, AST/ALT/T Bili are normal and ALk Phos is trending down, an no pain. Seen by GI Dr. Pressley and as LFTs are improved and patient tolerating diet hold off on Endoscopic U/S with/without ERCP for now considering sedation may cause patient to go into respiratory failure considering her recent history. Patient will need to follow up with GI Clinic through [facility] and procedure is decided upon then patient will need Pulmonary Clearance for this. Hx Hodgkin's Lymphoma: continue following with Dr. Blackwell as an outpatient. Pancytopenia 2/2 Hodgkin's Lymphoma: patient transfused 1 unit of platelets. Patient stable for discharge as per Dr. Mcmanus. This is a summary of the patient' s hospital course, please see chart for details. Discharge Exam - Head Exam Head Exam: NORMAL INSPECTION, NORMOCEPHALIC - Eye Exam Eye Exam: EOMI, Normal appearance - ENT Exam ENT Exam: Mucous Membranes Moist - Respiratory Exam Respiratory Exam: Clear to PA & Lateral, NORMAL BREATHING PATTERN. absent: Rales, Rhonchi, Respiratory Distress - Cardiovascular Exam Cardiovascular Exam: REGULAR RHYTHM, RRR. absent: Gallop, Rubs, Systolic Murmur - GI/Abdominal Exam GI & Abdominal Exam: Soft. absent: Firm, Tenderness - Extremities Exam Extremities exam: full ROM, normal inspection - Neurological Exam Neurological exam: Alert, Oriented x3 - Psychiatric Exam Psychiatric exam: Normal Affect, Normal Mood - Skin Skin Exam: Intact, Normal Color, Warm Discharge Plan - Discharge Medications Prescriptions: Allopurinol [Zyloprim] 400 mg PO BID #60 tab Docusate [Colace] 100 mg PO TID PRN #30 cap PRN Reason: Constipation Dronabinol [Marinol] 2.5 mg PO BID PRN #30 cap PRN Reason: Nausea/Vomiting Ferrous Sulfate 325 mg PO BID #60 tablet - Follow Up Plan Condition: STABLE Disposition: HOME/ ROUTINE Additional Instructions: The following instructions should be provided to patient upon discharge and included by the resident in discharge summary: 1). Please follow up with the [facility] located on Floor 3 of the hospital. Your appointment is scheduled for Monday06/20/17 at 8 AM morning. You will be having blood work done which will be reviewed by Factory Superintendent/Oncologist Dr. Scott Blackwell. Based upon the results he will then schedule you for your next round of Chemotherapy. 2). Please follow up with the [facility] located on Floor B of the [facility]. You may call them at [phone] to schedule this appointment. If you have difficulty scheduling the appointment by phone, then stop by Floor B of [facility] on 06/20/17 after you finish up at the Infusion Center to schedule your appointment in person. The doctors at this health center will be your primary care doctors and help you to coordinate your health care as well as provide you with prescriptions for future refills on your medications. They will also help you schedule your follow up with [facility] for follow up for your stones in the gallbladder. 3). Please have the following prescriptions filled at your pharmacy and take as directed: Allopurinol 400 mg, 1 tablet by mouth 2x/day (breakfast and dinner), Disp #60, NO refills: This is to help make sure your uric acid level remains low as it can become high with chemotherapy Colace 100 mg, 1 tablet by mouth 3 times a day only if you do not have a bowel movement for 3 days, Stop taking once you have a bowel movement. Disp #30, NO refills Dronabinol 2.5 mg, 1 tablet by mouth 2 times day only if you have nausea, Disp # 30, NO refills Ferrous Sulfate 325 mg, 1 tablet by mouth 2 times a day (breakfast and dinner), Disp #60, NO refills 4). Please take care and be well.
[2017-06-14 16:14] VITALS: RESP 18
[2017-06-14 16:40] VITALS: BP 105/65; PULSE 97; TEMP 98.3; O2SAT 100
== END 2017-06-14 17:55 | disposition home or self-care (01) | DRG 574 ==
LOC: C.ER 11:04 → C.9E 13:23 → C.5S 21:39
PROVIDERS: ADMIT Internal Medicine; ATTEND Internal Medicine
PROC: 30233R1 Transfusion of Nonautologous Platelets into Peripheral Vein, Percutaneous Approach (ICD-10-PCS; principal; 2017-06-06)
PROC: 3E03305 Introduction of Other Antineoplastic into Peripheral Vein, Percutaneous Approach (ICD-10-PCS; 2017-06-06)
DX: D70.9 Neutropenia, unspecified (principal); J18.9 Pneumonia, unspecified organism; J90 Pleural effusion, not elsewhere classified; C81.10 Nodular sclerosis Hodgkin lymphoma, unspecified site; R18.8 Other ascites; K80.70 Calculus of gallbladder and bile duct without cholecystitis without obstruction; D63.0 Anemia in neoplastic disease; R50.81 Fever presenting with conditions classified elsewhere; J45.909 Unspecified asthma, uncomplicated; J02.9 Acute pharyngitis, unspecified; Y95 Nosocomial condition; Z87.891 Personal history of nicotine dependence; Z92.21 Personal history of antineoplastic chemotherapy

== ENCOUNTER 2017-06-26 08:05 | Emergency (ER) | payer OTHER ==
[2017-06-26 08:06] VITALS: BMI 17.5
[2017-06-26 08:28] VITALS: O2SAT 100
[2017-06-26] MEDS ORDERED: Sodium Chloride 0.9% 1,000 ML IV ONE (08:33)
--- NOTE | 2017-06-26 08:35 | C.PDOC ---
History Of Present Illness Patient is a 26 y/o F with Hodgkin's Lymphoma, presenting to ED for chemotherapy. Patient reports that she was seen in Dr. Blackwell's office last week and was called on Monday to return to hospital. She reports that she is scheduled to start chemotherapy and was told that she has to stay in the hospital for 2 days. Denies any acute complaints. Denies pain. Denies fever, chest pain, shortness of breath. Time Seen by Provider: 06/26/17 08:06 Chief Complaint (Nursing): Medical Clearance Past Medical History Vital Signs: Last Vital Signs Temp 98.1 F 06/26/17 08:10 Pulse 112 H 06/26/17 09:15 Resp 16 06/26/17 09:15 BP 117/78 06/26/17 09:15 Pulse Ox 100 06/26/17 09:15 - Medical History PMH: Anemia, Asthma Denies: Chronic Kidney Disease - [facility] Procedures DRAINAGE OF R PLEURAL CAV WITH DRAIN DEV, PERC APPROACH (05/06/17) EXCISION OF AORTIC LYMPHATIC, PERCUTANEOUS APPROACH, DIAGN (05/06/17) EXCISION OF RIGHT UPPER LOBE BRONCHUS, ENDO, DIAGN (05/06/17) INSERTION OF ENDOTRACHEAL AIRWAY INTO TRACHEA, VIA OPENING (05/06/17) INTRODUCE OTH ANTINEOPLASTIC IN PERIPH VEIN, PERC (06/06/17) RESPIRATORY VENTILATION, GREATER THAN 96 CONSECUTIVE HOURS (05/06/17) TRANSFUSE NONAUT PLATELETS IN PERIPH VEIN, PERC (06/06/17) Family History: States: Unknown Family Hx - Social History Hx Alcohol Use: No Hx Substance Use: No - Immunization History Hx Tetanus Toxoid Vaccination: No Hx Influenza Vaccination: No Hx Pneumococcal Vaccination: No Review Of Systems Except As Marked, All Systems Reviewed And Found Negative. Constitutional: Negative for: Fever, Chills Cardiovascular: Negative for: Chest Pain, Palpitations Respiratory: Negative for: Cough, Shortness of Breath, SOB with Excertion, Wheezing Gastrointestinal: Negative for: Nausea, Vomiting, Abdominal Pain, Diarrhea, Constipation Musculoskeletal: Negative for: Back Pain Skin: Negative for: Rash Physical Exam - Physical Exam Appears: Other (cachetic) Skin: Normal Color, Warm, Dry Head: Atraumatic, Normacephalic Eye(s): bilateral: Normal Inspection, PERRL, EOMI Neck: Supple Chest: Symmetrical Cardiovascular: Other (tachycardic, R sided mediport) Respiratory: Normal Breath Sounds, No Rales, No Rhonchi Gastrointestinal/Abdominal: Soft, No Tenderness Back: Normal Inspection, No CVA Tenderness Extremity: Normal ROM Neurological/Psych: Oriented x3 Gait: Steady ED Course And Treatment - Laboratory Results Result Diagrams: 06/26/17 08:55 06/26/17 08:55 O2 Sat by Pulse Oximetry: 100 Medical Decision Making Medical Decision Making: Will get blood work and give IVF. Dr. Blackwell paged for further instructions. 8:50AM Spoke to Dr. Blackwell. Confirms that patient needs chemotherapy and orders to be written. Labs ordered. Spoke to Dr. Tatum and will admit to hospitalist service. 9:03AM Dr. Blackwell called back after speaking with outpatient chemotherapy. He reports that patient needs to go to outpatient chemotherapy infusion (3rd floor) today and will return on Monday for observation. Hospitalist aware. Admission cancelled. Labs grossly unchanged. Given 1L IVF. Will dc patient to go directly to outpatient chemotherapy. Disposition - Disposition Disposition: HOME/ ROUTINE Disposition Time: 08:37 Condition: GOOD Additional Instructions: GO DIRECTLY TO OUTPATIENT CHEMOTHERAPY ON 3RD FLOOR. Return to ED with any new complaints. Forms: [employer] (Slovenian) - Clinical Impression Clinical Impression: Hodgkin lymphoma
[2017-06-26] MEDS ORDERED: Sodium Chloride 0.9% 1,000 ML ONE (08:57)
[2017-06-26 09:06] LABS: BASO % 0.2 % (0.0-2.0); EOS % 0.1 % (0.0-4.0); HEMATOCRIT 28.8 % (34.0-47.0); LYMPH # 1.1 K/uL (1.0-4.3); LYMPH % 13.5 % (20.0-40.0); MEAN CORPUSCULAR HEMOGLOBIN 27.3 pg (27.0-31.0); MEAN CORPUSCULAR HGB CONC 32.4 g/dL (33.0-37.0); MEAN PLATELET VOLUME 6.9 fL (7.2-11.7); MONO # 1.4 K/uL (0.0-0.8); MONO % 17.1 % (0.0-10.0); RED CELL DISTRIBUTION WIDTH 24.5 % (11.5-14.5)
[2017-06-26 09:09] LABS: RBC URINE < 1 /hpf (0-3); URINE BILIRUBIN NEGATIVE (NEGATIVE); URINE BLOOD NEGATIVE (NEGATIVE); URINE COLOR Yellow (YELLOW); URINE GLUCOSE (UA) NORMAL (Normal); URINE KETONE NEGATIVE (NEGATIVE); URINE LEUKOCYTE ESTERASE TRACE Leu/uL (Negative); URINE PROTEIN NEGATIVE (NEGATIVE); URINE UROBILINOGEN NORMAL mg/dL (0.2-1.0); WBC URINE 4 /hpf (0-5)
[2017-06-26 09:10] LABS: MEAN CELL VOLUME 84.1 fL (81.0-99.0)
[2017-06-26 09:12] LABS: CHLORIDE 99 mmol/L (98-107)
[2017-06-26 09:13] LABS: POTASSIUM 3.7 mmol/L (3.6-5.2); SODIUM 133 mmol/L (132-148)
[2017-06-26 09:15] LABS: GFR AFRICAN-AMERICAN > 60; INR 1.1
[2017-06-26 09:16] VITALS: BP 117/78; PULSE 112; RESP 16
[2017-06-26 09:16] LABS: ALB/GLOB RATIO 0.9 (1.0-2.1); ALKALINE PHOSPHATASE 90 U/L (38-126); ALT/SGPT 18 U/L (9-52); AST/SGOT 18 U/L (14-36); BILIRUBIN,TOTAL 0.6 mg/dL (0.2-1.3); BLOOD UREA NITROGEN 6 mg/dL (7-17); CARBON DIOXIDE 25 mmol/L (22-30); GLUCOSE,RANDOM 83 mg/dL (65-105); PHOSPHOROUS 4.1 mg/dL (2.5-4.5); TOTAL PROTEIN 7.8 g/dL (6.3-8.3)
[2017-06-26 09:17] LABS: CALCIUM 8.6 mg/dl (8.6-10.4); MAGNESIUM 1.6 mg/dL (1.6-2.3)
[2017-06-26 09:26] VITALS: TEMP 98.8
[2017-06-26 09:47] LABS: URIC ACID 2.5 mg/dL (2.2-7.5)
== END 2017-06-26 09:35 | disposition home or self-care (01) ==
LOC: C.ER 08:05
DX: C81.90 Hodgkin lymphoma, unspecified, unspecified site (principal)
CPT/HCPCS: 80053; 81001; 83735; 84100; 84550; 85025; 85610; 85730; 99284; J7040

== ENCOUNTER 2017-06-28 11:35 | Observation (INO) | payer OTHER ==
[2017-06-28 11:35] VITALS: BMI 17.5
[2017-06-28] MEDS ORDERED: IFOSFAMIDE IV ONE (12:00)
[2017-06-28] MEDS ORDERED: SODIUM CHLORIDE 0.9% IV ONE (12:00)
[2017-06-28] MEDS ORDERED: MESNA IV ONE (12:00)
--- NOTE | 2017-06-28 13:22 | C.PDOC ---
History Of Present Illness 26 y/o female sent to ED by Infusion Center by Dr. Blackwell for chemotherapy. Patient has lymphoma and was sent for admission to obtain Chemotherapy. No other physical complaints at this time. Time Seen by Provider: 06/28/17 12:37 Chief Complaint (Nursing): Medical Clearance History Per: Patient History/Exam Limitations: no limitations Onset/Duration Of Symptoms: Days Current Symptoms Are (Timing): Still Present Past Medical History Reviewed: Historical Data, Nursing Documentation, Vital Signs Vital Signs: Last Vital Signs Temp 97.9 F 06/28/17 11:40 Pulse 75 06/28/17 11:40 Resp 18 06/28/17 11:40 BP 98/64 L 06/28/17 11:40 Pulse Ox 99 06/28/17 13:55 - Medical History PMH: Anemia, Asthma Surgical History: No Surg Hx - [facility] Procedures DRAINAGE OF R PLEURAL CAV WITH DRAIN DEV, PERC APPROACH (05/06/17) EXCISION OF AORTIC LYMPHATIC, PERCUTANEOUS APPROACH, DIAGN (05/06/17) EXCISION OF RIGHT UPPER LOBE BRONCHUS, ENDO, DIAGN (05/06/17) INSERTION OF ENDOTRACHEAL AIRWAY INTO TRACHEA, VIA OPENING (05/06/17) INTRODUCE OTH ANTINEOPLASTIC IN PERIPH VEIN, PERC (06/06/17) RESPIRATORY VENTILATION, GREATER THAN 96 CONSECUTIVE HOURS (05/06/17) TRANSFUSE NONAUT PLATELETS IN PERIPH VEIN, PERC (06/06/17) Family History: States: No Known Family Hx - Social History Hx Alcohol Use: No Hx Substance Use: No - Immunization History Hx Tetanus Toxoid Vaccination: No Hx Influenza Vaccination: No Hx Pneumococcal Vaccination: No Review Of Systems Constitutional: Negative for: Fever, Chills Cardiovascular: Negative for: Chest Pain Respiratory: Negative for: Shortness of Breath Gastrointestinal: Negative for: Nausea, Vomiting, Abdominal Pain Musculoskeletal: Negative for: Back Pain Skin: Negative for: Rash Neurological: Negative for: Weakness, Numbness Physical Exam - Physical Exam Appears: Non-toxic, No Acute Distress Skin: Warm, Dry, No Rash Head: Atraumatic, Normacephalic Oral Mucosa: Moist Cardiovascular: Rhythm Regular Respiratory: Normal Breath Sounds, No Rales, No Rhonchi, No Wheezing Gastrointestinal/Abdominal: Soft, No Tenderness Neurological/Psych: Oriented x3 Gait: Unable To Assess ED Course And Treatment O2 Sat by Pulse Oximetry: 99 (RA) Pulse Ox Interpretation: Normal Disposition - Disposition Disposition: HOSPITALIZED Disposition Time: 14:00 Condition: STABLE - POA Present On Arrival: None - Clinical Impression Clinical Impression: Lymphoma - PA / DIRECTOR OF RELIGIOUS LIFE / Resident Statement MD/DO has reviewed & agrees with the documentation as recorded. - Scribe Statement The provider has reviewed the documentation as recorded by the Eveliaibeddy Schmitz All medical record entries made by the Eveliaibeddy were at my direction and personally dictated by me. I have reviewed the chart and agree that the record accurately reflects my personal performance of the history, physical exam, medical decision making, and the department course for this patient. I have also personally directed, reviewed, and agree with the discharge instructions and disposition. Decision To Admit - Pt Status Changed To: Hospital Disposition Of: Observation - InPatient: Physician Admission Certification: I certify that this patient requires 2 or more midnights of care for the following reason:: Lymphoma - . Bed Request Type: Regular Patient Diagnosis: Lymphoma
--- NOTE | 2017-06-28 14:13 | CP.PCM.HP ---
Addendum entered and electronically signed by Jose Juan Dosuza DO 06/28/17 16: 21: Patient says she receives Chemo therapy once a month Original Note: <DsouzaLorraine kamelana Nelson - Last Filed: 06/28/17 14:54> History of Present Illness - History of Present Illness History of Present Illness: CC: chemo therapy HPI: Patient is a 26 year old female with a history of Hodgkin's lymphoma is here for post chemo therapy admission. She is on her second day of IV chemo therapy that she says she is getting once a week. She was admitted from 2016-06/01/2017 for septic shock, respiratory failure, neutropenic fever, sinus tachycardia, anemia, and shock liver. She currently has no complaints and also denies any recent fever, chills, nausea, vomiting, diarrhea, chest pain, shortness of breath, cough, palpitations, dysuria, lower extremity swelling, joint pain, joint swelling, or skin rash. She is sitting in a chair receiving IV chemo therapy in the infusion center. Patient was diagnosed two years ago with lymphoma after she noticed about 35lbs of unintentional weight loss over a 4 month period. She also recently stopped taking her chemo therapy due to a . She currently takes no medication at home, she denies any other medical issues, surgical history, or any known family history of cancer. She was also admitted on 05/31 and discharged 06/14 for Neutropenic fever PMH: see above PSH: denies FH: denies family history of cancer SH: From [place], denies illicit drug use, smoking, or etoh use, single, lives alone, unemployed Allergies: NKDA Present on Admission - Present on Admission Any Indicators Present on Admission: No History of DVT/PE: No History of Uncontrolled Diabetes: No Urinary Catheter: No Decubitus Ulcer Present: No Review of Systems - Review of Systems All systems: reviewed and no additional remarkable complaints except - Constitutional Constitutional: Weight Loss (lost 35 lbs before diagnosis 2 years ago, no recent weight loss). absent: Chills, Fever - EENT Eyes: absent: Change in Vision Ears: absent: Dizziness - Cardiovascular Cardiovascular: absent: Chest Pain, Dyspnea - Respiratory Respiratory: absent: Cough, Dyspnea - Gastrointestinal Gastrointestinal: absent: Abdominal Pain, Constipation, Diarrhea, Nausea, Vomiting - Genitourinary Genitourinary: absent: Dysuria - Musculoskeletal Musculoskeletal: absent: Numbness, Tingling - Neurological Neurological: absent: Weakness - Psychiatric Psychiatric: absent: Anxiety - Endocrine Endocrine: absent: Fatigue, Palpitations Past Patient History - Infectious Disease Hx of Infectious Diseases: None - Past Medical History & Family History Past Medical History?: Yes - Past Social History Smoking Status: Former Smoker - CARDIAC Hx Cardiac Disorders: No - PULMONARY Hx Asthma: Yes - NEUROLOGICAL Hx Neurological Disorder: No - HEENT Hx HEENT Problems: No - RENAL Hx Chronic Kidney Disease: No - ENDOCRINE/METABOLIC Hx Endocrine Disorders: No - HEMATOLOGICAL/ONCOLOGICAL Hx Anemia: Yes - INTEGUMENTARY Hx Dermatological Problems: No - MUSCULOSKELETAL/RHEUMATOLOGICAL Hx Musculoskeletal Disorders: No Hx Falls: No - GASTROINTESTINAL Hx Gastrointestinal Disorders: No - GENITOURINARY/GYNECOLOGICAL Hx Genitourinary Disorders: No - PSYCHIATRIC Hx Substance Use: No - SURGICAL HISTORY Hx Surgeries: Yes Hx Vascular Access Device: Yes (port a cath) Other/Comment: "Hodgkin's Lymphoma. Removal of "mass" in my left neck" (as per previous triage) port a cath placed right subclavian - ANESTHESIA Hx Anesthesia: Yes Meds Allergies/Adverse Reactions: Allergies Allergy/AdvReac Type Severity Reaction Status Date / Time No Known Allergies Allergy Verified 06/06/17 11:32 Physical Exam - Constitutional Appears: Non-toxic, No Acute Distress - Eye Exam Eye Exam: PERRL. absent: Normal appearance Pupil Exam: NORMAL ACCOMODATION Additional comments: right pupil is larger than her left - ENT Exam ENT Exam: Normal Exam - Respiratory Exam Respiratory Exam: Clear to Auscultation Bilateral. absent: Rales, Rhonchi, Wheezes Additional comments: port above her right clavicle - Cardiovascular Exam Cardiovascular Exam: REGULAR RHYTHM, RRR, +S1, +S2. absent: Gallop, Rubs - GI/Abdominal Exam GI & Abdominal Exam: Normal Bowel Sounds, Soft. absent: Distended, Guarding, Rebound, Tenderness - Extremities Exam Extremities exam: Positive for: normal inspection. Negative for: pedal edema, tenderness - Back Exam Back exam: absent: CVA tenderness (L), CVA tenderness (R) - Neurological Exam Neurological exam: Alert, Oriented x3 - Psychiatric Exam Psychiatric exam: Normal Affect, Normal Mood - Skin Skin Exam: Dry, Normal Color, Warm Results - Vital Signs Recent Vital Signs: Last Vital Signs Temp 97.9 F 10/18/17 11:40 Pulse 75 06/28/17 11:40 Resp 18 06/28/17 11:40 BP 98/64 L 06/28/17 11:40 Pulse Ox 99 06/28/17 13:56 Assessment & Plan (1) Hodgkin lymphoma Assessment and Plan: Admitted to Reg/Obs floor. Patient is receiving Etoposide, Carboplatin, Ifosfomide, and Mesna in the infusion center. She received chemo yesterday and will also get IV chemo therapy today as well. Will admit patient and monitor to her. Will get cbc, cmp, mag, phos, and uric acid today. Follow up those same labs tomorrow. Tylenol as needed for fever, Allopurinol for rise in post chemo therapy uric acid. Also give Marinol for post chemo nausea and vomiting. Dr. Blackwell consulted. Consider discharge if stable tomorrow. Status: Acute Priority: High (2) History of neutropenia Assessment and Plan: she was given Granix which was effective, consider it again if needed. See note from admission on 05/31 to 06/14/2017 Status: Chronic Priority: Medium (3) History of respiratory failure Assessment and Plan: See progress note from 05/07-06/01, patient was post intubaton. Status: Chronic (4) History of septic shock Assessment and Plan: Please see last progress note and discharge note from 05/07-06/01 Status: Chronic (5) History of sinus tachycardia Assessment and Plan: monitor vital signs, see last progress note from to 06/01 Status: Chronic (6) History of anemia Assessment and Plan: Feosol 325mg, monitor CBC, most likely iron deficiency Status: Chronic (7) History of cholelithiasis Assessment and Plan: see GI's note from previous admission on Monitor with serial abdominal exams. Status: Chronic (8) Prophylactic measure Assessment and Plan: Hold chemical VTE due to history of low plt count SCDs, protonix 40mg po Ensure to help PO intake Tylenol 650mg q6h prn for fever and pain. Status: Acute <Bharat Mcmanus - Last Filed: 06/28/17 18:47> Results - Vital Signs Recent Vital Signs: Last Vital Signs Temp 97.6 F 06/28/17 15:00 Pulse 91 H 06/28/17 15:00 Resp 99 H 06/28/17 15:00 BP 104/67 06/28/17 15:00 Pulse Ox 20 L 06/28/17 15:00 Attending/Attestation - Attestation I have personally seen and examined this patient.: Yes I have fully participated in the care of the patient.: Yes I have reviewed all pertinent clinical information: Yes Notes (Text): 06/28/17 18:47 Patient was seen and examined right after resident History, Physical, Assessment and Plan were thoroughly gone over with the resident. Bharat Mcmanus D.O.
[2017-06-28 23:22] VITALS: RESP 20
[2017-06-29] MEDS ORDERED: Pantoprazole 40 mg EC Tab PO SCH (10:00)
--- NOTE | 2017-06-29 11:30 | CP.PCM.DIS ---
<Shanda Waggoner - Last Filed: 06/29/17 16:09> Provider - Provider Date of Admission: 06/28/17 13:07 Attending physician: Bharat Mcmanus MD Consults: Heme/Onc: Dr. Blackwell Time Spent in preparation of Discharge (in minutes): 55 Hospital Course - Hospital Course Hospital Course: Upon Admission: CC: chemo therapy HPI: Patient is a 26 year old female with a history of Hodgkin's lymphoma is here for post chemo therapy admission. She is on her second day of IV chemo therapy that she says she is getting once a week. She was admitted from 2016-06/01/2017 for septic shock, respiratory failure, neutropenic fever, sinus tachycardia, anemia, and shock liver. She currently has no complaints and also denies any recent fever, chills, nausea, vomiting, diarrhea, chest pain, shortness of breath, cough, palpitations, dysuria, lower extremity swelling, joint pain, joint swelling, or skin rash. She is sitting in a chair receiving IV chemo therapy in the infusion center. Patient was diagnosed two years ago with lymphoma after she noticed about 35lbs of unintentional weight loss over a 4 month period. She also recently stopped taking her chemo therapy due to a . She currently takes no medication at home, she denies any other medical issues, surgical history, or any known family history of cancer. She was also admitted on 05/31 and discharged 06/14 for Neutropenic fever PMH: see above PSH: denies FH: denies family history of cancer SH: From [place], denies illicit drug use, smoking, or etoh use, single, lives alone, unemployed Allergies: NKDA Throughout Hospital Course: Patient was admitted for chemotherapy - observation. (1) Hodgkin lymphoma Assessment and Plan: Patient is receiving Etoposide, Carboplatin, Ifosfomide, and Mesna in the infusion center. She received chemo yesterday and will also get IV chemo therapy today as well. Will admit patient and monitor to her. Will get cbc, cmp, mag, phos, and uric acid today. Follow up those same labs tomorrow. Tylenol as needed for fever, Allopurinol for rise in post chemo therapy uric acid. Also give Marinol for post chemo nausea and vomiting. Dr. Blackwell consulted. (2) History of neutropenia Assessment and Plan: she was given Granix which was effective, consider it again if needed. See note from admission on 05/31 to 06/14/2017 (3) History of respiratory failure Assessment and Plan: See progress note from 05/07-06/01, patient was post intubaton. (4) History of septic shock Assessment and Plan: Please see last progress note and discharge note from 05/07-06/01 (5) History of sinus tachycardia Assessment and Plan: monitor vital signs, see last progress note from to 06/01 (6) History of anemia Assessment and Plan: Feosol 325mg, monitor CBC, most likely iron deficiency (7) History of cholelithiasis Assessment and Plan: see GI's note from previous admission on . Monitor with serial abdominal exams. (8) Prophylactic measure Assessment and Plan: Hold chemical VTE due to history of low plt count SCDs, protonix 40mg po Ensure to help PO intake Tylenol 650mg q6h prn for fever and pain. This is brief summary of the patient's course. Please review the chart for full record. Discharge Exam - Additional Findings Additional findings: - Constitutional Appears: Non-toxic, No Acute Distress - Eye Exam Eye Exam: PERRL. absent: Normal appearance Pupil Exam: NORMAL ACCOMODATION Additional comments: right pupil is larger than her left - ENT Exam ENT Exam: Normal Exam - Respiratory Exam Respiratory Exam: Clear to Auscultation Bilateral. absent: Rales, Rhonchi, Wheezes Additional comments: port above her right clavicle - Cardiovascular Exam Cardiovascular Exam: REGULAR RHYTHM, RRR, +S1, +S2. absent: Gallop, Rubs - GI/Abdominal Exam GI & Abdominal Exam: Normal Bowel Sounds, Soft. absent: Distended, Guarding, Rebound, Tenderness - Extremities Exam Extremities exam: Positive for: normal inspection. Negative for: pedal edema, tenderness - Back Exam Back exam: absent: CVA tenderness (L), CVA tenderness (R) - Neurological Exam Neurological exam: Alert, Oriented x3 - Psychiatric Exam Psychiatric exam: Normal Affect, Normal Mood - Skin Skin Exam: Dry, Normal Color, Warm Discharge Plan - Discharge Medications Prescriptions: Allopurinol [Zyloprim] 400 mg PO BID #60 tab Dronabinol [Marinol] 2.5 mg PO BID #60 cap - Follow Up Plan Condition: STABLE Disposition: HOME/ ROUTINE Instructions: Hodgkin Disease (DC) Additional Instructions: You will be receiving chemotherapy every [address] Blackwell stops it otherwise. Next chemotherapy date is 07/18/17. You will need to come to the infusion center next week everyday Monday - Tuesday 07/03-07/07, once each day to receive Granix. Please follow up with Dr. Blackwell for follow up and to have labs drawn to monitor your kidney and liver functions. Please make sure you return to the ED so that you can be administered chemotherapy. ---- Recibir quimioterapia cada [address] Blackwell lo suspenda de lo contrario. La prxima fecha de quimioterapia es el 07/18/17. Tendr que ir al centro de infusin la prxima semana todos los torres de lunes a viernes del 07/03 al 07/07, janice vez al da para recibir Granix. Por favor, kassie un seguimiento con el Dr. Blackwell para el seguimiento y para que le neo un anlisis de laboratorio para monitorear cesar funciones de rin e h gado. Asegrese de regresar al servicio de urgencias para que pueda recibir quimioterapia. Referrals: Scott Blackwell MD [Staff Provider] - <Bharat Mcmanus - Last Filed: 06/29/17 18:56> Provider - Provider Date of Admission: 06/28/17 13:07 Attending physician: Bharat Mcmanus MD Hospital Course - Lab Results Lab Results: Most Recent Lab Values WBC 8.6 K/uL (4.8-10.8) 06/29/17 11:24 RBC 3.66 Mil/uL (3.80-5.20) L 06/29/17 11:24 Hgb 10.1 g/dL (11.0-16.0) L 06/29/17 11:24 Hct 30.6 % (34.0-47.0) L 06/29/17 11:24 MCV 83.6 fL (81.0-99.0) 06/29/17 11:24 MCH 27.7 pg (27.0-31.0) 06/29/17 11:24 MCHC 33.2 g/dL (33.0-37.0) 06/29/17 11:24 RDW 24.7 % (11.5-14.5) H 06/29/17 11:24 Plt Count 335 K/uL (130-400) 06/29/17 11:24 MPV 7.3 fL (7.2-11.7) 06/29/17 11:24 Neut % (Auto) 83.7 % (50.0-75.0) H 06/29/17 11:24 Lymph % (Auto) 9.5 % (20.0-40.0) L 06/29/17 11:24 Henry % (Auto) 6.1 % (0.0-10.0) 06/29/17 11:24 Eos % (Auto) 0.2 % (0.0-4.0) 06/29/17 11:24 Baso % (Auto) 0.5 % (0.0-2.0) 06/29/17 11:24 Neut # 7.2 K/uL (1.8-7.0) H 06/29/17 11:24 Lymph # 0.8 K/uL (1.0-4.3) L 06/29/17 11:24 Henry # 0.5 K/uL (0.0-0.8) 06/29/17 11:24 Eos # 0.0 K/uL (0.0-0.7) 06/29/17 11:24 Baso # 0.0 K/uL (0.0-0.2) 06/29/17 11:24 Neutrophils % (Manual) 81 % (50-75) H 06/29/17 11:24 Band Neutrophils % 2 % (0-2) 06/29/17 11:24 Lymphocytes % (Manual) 12 % (20-40) L 06/29/17 11:24 Monocytes % (Manual) 3 % (0-10) 06/29/17 11:24 Eosinophils % (Manual) 1 % (0-4) 06/29/17 11:24 Myelocytes % 1 % (0-0) H 06/29/17 11:24 Platelet Estimate Normal (NORMAL) 06/29/17 11:24 Hypochromasia (manual) Slight 06/29/17 11:24 Anisocytosis (manual) Moderate 06/29/17 11:24 Sodium 137 mmol/L (132-148) 06/29/17 11:24 Potassium 3.7 mmol/L (3.6-5.2) 06/29/17 11:24 Chloride 100 mmol/L (98-107) 06/29/17 11:24 Carbon Dioxide 27 mmol/L (22-30) 06/29/17 11:24 Anion Gap 13 (10-20) 06/29/17 11:24 BUN 12 mg/dL (7-17) 06/29/17 11:24 Creatinine 0.4 mg/dL (0.7-1.2) L 06/29/17 11:24 Est GFR ( Amer) > 60 06/29/17 11:24 Est GFR (Non-Af Amer) > 60 06/29/17 11:24 Random Glucose 72 mg/dL (65-105) 06/29/17 11:24 Uric Acid 2.0 mg/dL (2.2-7.5) L 06/29/17 11:24 Calcium 8.7 mg/dl (8.6-10.4) 06/29/17 11:24 Phosphorus 4.4 mg/dL (2.5-4.5) 06/29/17 11:24 Magnesium 1.8 mg/dL (1.6-2.3) 06/29/17 11:24 Total Bilirubin 0.4 mg/dL (0.2-1.3) 06/29/17 11:24 AST 11 U/L (14-36) L D 06/29/17 11:24 ALT 24 U/L (9-52) 06/29/17 11:24 Alkaline Phosphatase 72 U/L (38-126) 06/29/17 11:24 Total Protein 7.6 g/dL (6.3-8.3) 06/29/17 11:24 Albumin 3.3 g/dL (3.5-5.0) L 06/29/17 11:24 Globulin 4.4 gm/dL (2.2-3.9) H 06/29/17 11:24 Albumin/Globulin Ratio 0.8 (1.0-2.1) L 06/29/17 11:24 Attending/Attestation - Attestation I have personally seen and examined this patient.: Yes I have fully participated in the care of the patient.: Yes I have reviewed all pertinent clinical information, including history, physical exam and plan: Yes Notes (Text): 06/29/17 18:55 Patient was seen and examined at 10:30 AM Exam, assessment and plan and discharge instructions were thoroughly gone over with the resident. Bharat Mcmanus D.O.
[2017-06-29 11:49] LABS: BASO % 0.5 % (0.0-2.0); EOS % 0.2 % (0.0-4.0); HEMATOCRIT 30.6 % (34.0-47.0); LYMPH # 0.8 K/uL (1.0-4.3); LYMPH % 9.5 % (20.0-40.0); MEAN CELL VOLUME 83.6 fL (81.0-99.0); MEAN CORPUSCULAR HEMOGLOBIN 27.7 pg (27.0-31.0); MEAN CORPUSCULAR HGB CONC 33.2 g/dL (33.0-37.0); MEAN PLATELET VOLUME 7.3 fL (7.2-11.7); MONO # 0.5 K/uL (0.0-0.8); MONO % 6.1 % (0.0-10.0); NRBC % 0.1 % (0.0-2.0); PLATELET COUNT 335 K/uL (130-400); RED CELL DISTRIBUTION WIDTH 24.7 % (11.5-14.5); WHITE BLOOD COUNT 8.6 K/uL (4.8-10.8)
[2017-06-29 12:05] LABS: CHLORIDE 100 mmol/L (98-107); POTASSIUM 3.7 mmol/L (3.6-5.2); SODIUM 137 mmol/L (132-148)
[2017-06-29 12:07] LABS: ALB/GLOB RATIO 0.8 (1.0-2.1); ALKALINE PHOSPHATASE 72 U/L (38-126); AST/SGOT 11 U/L (14-36); BILIRUBIN,TOTAL 0.4 mg/dL (0.2-1.3); CARBON DIOXIDE 27 mmol/L (22-30); GFR AFRICAN-AMERICAN > 60; TOTAL PROTEIN 7.6 g/dL (6.3-8.3)
[2017-06-29 12:08] LABS: ALT/SGPT 24 U/L (9-52); BLOOD UREA NITROGEN 12 mg/dL (7-17); CALCIUM 8.7 mg/dl (8.6-10.4); GLUCOSE,RANDOM 72 mg/dL (65-105); PHOSPHOROUS 4.4 mg/dL (2.5-4.5)
[2017-06-29 12:09] LABS: MAGNESIUM 1.8 mg/dL (1.6-2.3)
[2017-06-29 12:14] LABS: EOSINOPHIL 1 % (0-4); MYELOCYTE 1 % (0-0); NEUTROPHIL 81 % (50-75); TOTAL CELLS COUNTED 100
[2017-06-29] MEDS ORDERED: DiphenhydrAMINE 50 mg/ml Inj IVP ONE ×3 (13:30→17:45)
[2017-06-29] MEDS ORDERED: ONDANSETRON IVPB ONE (13:45)
[2017-06-29] MEDS ORDERED: DEXAMETHASONE IVPB ONE (13:45)
[2017-06-29] MEDS ORDERED: SODIUM CHLORIDE 0.9% IVPB ONE (13:45)
[2017-06-29 16:11] VITALS: BP 95/62; PULSE 112; TEMP 98.8; O2SAT 99
== END 2017-06-29 20:45 | disposition home or self-care (01) ==
LOC: C.ER 11:35 → C.9E 13:07 → C.3T 14:56
PROVIDERS: ADMIT Family Medicine; ATTEND Family Medicine
DX: Z04.8 Encounter for examination and observation for other specified reasons (principal); C81.90 Hodgkin lymphoma, unspecified, unspecified site; J45.909 Unspecified asthma, uncomplicated; Z87.891 Personal history of nicotine dependence
CPT/HCPCS: 36415; 80053; 83735; 84100; 84550; 85025; 99282; G0378; J1100; J1200; J1642; J2405; J7040; J9181; J9208; J9209; Q0167

== ENCOUNTER 2017-08-09 11:17 | Observation (INO) | payer OTHER ==
[2017-08-09 11:17] VITALS: BMI 19.6
--- NOTE | 2017-08-09 11:58 | C.PDOC ---
History Of Present Illness 26 y/o female, with PMHx of Hodgkin's lymphoma, is sent from [facility] center for admission. Patient is to receive chemotherapy for 24 hours. No other complaints at this time. Time Seen by Provider: 08/09/17 11:55 Chief Complaint (Nursing): Medical Clearance History Per: Patient History/Exam Limitations: no limitations Additional History Per: Patient Past Medical History Reviewed: Historical Data, Nursing Documentation, Vital Signs Vital Signs: Last Vital Signs Temp 97.8 F 08/09/17 11:29 Pulse 76 08/09/17 11:29 Resp 16 08/09/17 11:29 BP 104/68 08/09/17 11:29 Pulse Ox 100 08/09/17 11:58 - Medical History PMH: Anemia, Asthma Denies: Chronic Kidney Disease - [facility] Procedures DRAINAGE OF R PLEURAL CAV WITH DRAIN DEV, PERC APPROACH (05/06/17) EXCISION OF AORTIC LYMPHATIC, PERCUTANEOUS APPROACH, DIAGN (05/06/17) EXCISION OF RIGHT UPPER LOBE BRONCHUS, ENDO, DIAGN (05/06/17) INSERTION OF ENDOTRACHEAL AIRWAY INTO TRACHEA, VIA OPENING (05/06/17) INTRODUCE OTH ANTINEOPLASTIC IN PERIPH VEIN, PERC (06/06/17) RESPIRATORY VENTILATION, GREATER THAN 96 CONSECUTIVE HOURS (05/06/17) TRANSFUSE NONAUT PLATELETS IN PERIPH VEIN, PERC (06/06/17) Family History: States: Unknown Family Hx - Social History Hx Alcohol Use: No Hx Substance Use: No - Immunization History Hx Tetanus Toxoid Vaccination: No Hx Influenza Vaccination: No Hx Pneumococcal Vaccination: No Review Of Systems Except As Marked, All Systems Reviewed And Found Negative. Constitutional: Negative for: Fever, Chills Cardiovascular: Negative for: Chest Pain, Palpitations Respiratory: Negative for: Cough, Shortness of Breath Gastrointestinal: Negative for: Nausea, Vomiting, Abdominal Pain Neurological: Negative for: Headache, Dizziness Physical Exam - Physical Exam Appears: Non-toxic, No Acute Distress Skin: Normal Color, Warm, Dry Head: Atraumatic, Normacephalic Eye(s): bilateral: Normal Inspection Nose: Normal Oral Mucosa: Moist Neck: Normal ROM, Supple Chest: Symmetrical, Other (port to right anterior chest) Cardiovascular: Rhythm Regular, No Murmur Respiratory: Normal Breath Sounds, No Rales, No Rhonchi, No Wheezing Gastrointestinal/Abdominal: Soft, No Tenderness Extremity: Normal ROM Neurological/Psych: Oriented x3, Normal Speech ED Course And Treatment O2 Sat by Pulse Oximetry: 100 Pulse Ox Interpretation: Normal Disposition - Disposition Forms: [facility] - PA / BED MANAGER / Resident Statement MD/DO has reviewed & agrees with the documentation as recorded. - Scribe Statement The provider has reviewed the documentation as recorded by the Scribe Xena Mcmanus All medical record entries made by the Eveliaibeddy were at my direction and personally dictated by me. I have reviewed the chart and agree that the record accurately reflects my personal performance of the history, physical exam, medical decision making, and the department course for this patient. I have also personally directed, reviewed, and agree with the discharge instructions and disposition.
--- NOTE | 2017-08-09 12:03 | C.PDOC ---
History Of Present Illness 26 y/o female, with PMHx of Hodgkin's lymphoma, is sent for chemotherapy infusion and post-chemotherapy observation. No other complaints at this time. Note pt had blood work done yesterday. Pt comes here every 3 weeks for similar treatment. Time Seen by Provider: 08/09/17 11:55 Chief Complaint (Nursing): Medical Clearance History Per: Patient History/Exam Limitations: no limitations Past Medical History Reviewed: Historical Data, Nursing Documentation, Vital Signs Vital Signs: Last Vital Signs Temp 97.8 F 08/09/17 11:29 Pulse 76 08/09/17 11:29 Resp 16 08/09/17 11:29 BP 104/68 08/09/17 11:29 Pulse Ox 100 08/09/17 13:22 - Medical History PMH: Anemia, Asthma Denies: Chronic Kidney Disease - [facility] Procedures DRAINAGE OF R PLEURAL CAV WITH DRAIN DEV, PERC APPROACH (05/06/17) EXCISION OF AORTIC LYMPHATIC, PERCUTANEOUS APPROACH, DIAGN (05/06/17) EXCISION OF RIGHT UPPER LOBE BRONCHUS, ENDO, DIAGN (05/06/17) INSERTION OF ENDOTRACHEAL AIRWAY INTO TRACHEA, VIA OPENING (05/06/17) INTRODUCE OTH ANTINEOPLASTIC IN PERIPH VEIN, PERC (06/06/17) RESPIRATORY VENTILATION, GREATER THAN 96 CONSECUTIVE HOURS (05/06/17) TRANSFUSE NONAUT PLATELETS IN PERIPH VEIN, PERC (06/06/17) Family History: States: Unknown Family Hx - Social History Hx Alcohol Use: No Hx Substance Use: No - Immunization History Hx Tetanus Toxoid Vaccination: No Hx Influenza Vaccination: No Hx Pneumococcal Vaccination: No Review Of Systems Except As Marked, All Systems Reviewed And Found Negative. Constitutional: Negative for: Fever, Chills Cardiovascular: Negative for: Chest Pain, Palpitations Respiratory: Negative for: Cough, Shortness of Breath Gastrointestinal: Negative for: Nausea, Vomiting, Abdominal Pain Physical Exam - Physical Exam Appears: Non-toxic, No Acute Distress, Chronically Ill Skin: Normal Color, Warm, Dry Head: Atraumatic, Normacephalic Eye(s): bilateral: Normal Inspection, EOMI Nose: Normal Oral Mucosa: Moist Neck: Normal ROM, Supple Chest: Symmetrical, Other (port to right anterior chest) Cardiovascular: Rhythm Regular, No Murmur Respiratory: Normal Breath Sounds, No Rales, No Rhonchi, No Wheezing Gastrointestinal/Abdominal: Soft, No Tenderness Extremity: Normal ROM Neurological/Psych: Oriented x3, Normal Speech ED Course And Treatment O2 Sat by Pulse Oximetry: 100 Pulse Ox Interpretation: Normal Progress Note: Case discussed with Dr. Tatum who agrees upon admission. Disposition - Disposition Disposition: HOSPITALIZED Disposition Time: 12:23 Condition: STABLE - Clinical Impression Clinical Impression: Hodgkin lymphoma - PA / [employer]EL [employer]OP SUPERVISOR / Resident Statement MD/DO has reviewed & agrees with the documentation as recorded. - Scribe Statement The provider has reviewed the documentation as recorded by the Scribeddy Mcmanus All medical record entries made by the Eveliaibeddy were at my direction and personally dictated by me. I have reviewed the chart and agree that the record accurately reflects my personal performance of the history, physical exam, medical decision making, and the department course for this patient. I have also personally directed, reviewed, and agree with the discharge instructions and disposition.
[2017-08-09] MEDS ORDERED: IFOSFAMIDE IV ONE (13:00)
[2017-08-09] MEDS ORDERED: SODIUM CHLORIDE 0.9% IV ONE (13:00)
[2017-08-09] MEDS ORDERED: MESNA IV ONE (13:00)
--- NOTE | 2017-08-09 13:48 | CP.PCM.HP ---
<BraedenElodia SMisti - Last Filed: 08/09/17 15:15> History of Present Illness - History of Present Illness History of Present Illness: Patient is a 26 year old female with a past medical history of Hodgkin's Lymphoma and asthma, who presents to the ED from the [facility] for chemotherapy and post-chemotherapy observation. Patient was originally diagnosed with Hodgkin's Lymphoma two years ago and started chemotherapy. Patient was recently admitted on 07/19/17 for post-chemotherapy observation, on -06/14/17 for neutropenic fever post-chemotherapy, as well as on 05/07/17- for septic shock, respiratory failure, neutropenic fever, tachycardia, and anemia. Patient states she has gained weight about 30 lbs which she states she is happy about. She states she feels well and denies having chest pain, abdominal pain, shortness of breath, loss of appetite, nausea, vomiting, fevers , diarrhea or constipation. She states she never has nausea or vomiting after chemotherapy. She states this is is her 4th chemotherapy session and that she may receive a bone marrow transplant in the future. PMD: [facility] Oncologist: Dr. Blackwell Past Medical History: Hodgkin's Lymphoma, Asthma Surgical History: Chemotherapy port placement 2 years prior Family History: denies Social History: denies tobacco, alcohol, and drug use; lives with her cousin in [place]. Unemployed. Allergies: NKDA Medications: At home, only used albuterol as needed. Present on Admission - Present on Admission Any Indicators Present on Admission: No Review of Systems - Constitutional Constitutional: Weight Gain. absent: Chills, Fever, Headache, Weight Loss - Cardiovascular Cardiovascular: absent: Chest Pain, Dyspnea, Palpitations - Respiratory Respiratory: absent: Dyspnea - Gastrointestinal Gastrointestinal: absent: Constipation, Diarrhea, Nausea, Vomiting - Genitourinary Genitourinary: absent: Dysuria Past Patient History - Infectious Disease Hx of Infectious Diseases: None - Past Medical History & Family History Past Medical History?: Yes - Past Social History Smoking Status: Never Smoked - CARDIAC Hx Cardiac Disorders: No - PULMONARY Hx Asthma: Yes - NEUROLOGICAL Hx Neurological Disorder: No - HEENT Hx HEENT Problems: No - RENAL Hx Chronic Kidney Disease: No - ENDOCRINE/METABOLIC Hx Endocrine Disorders: No - HEMATOLOGICAL/ONCOLOGICAL Hx Anemia: Yes - INTEGUMENTARY Hx Dermatological Problems: No - MUSCULOSKELETAL/RHEUMATOLOGICAL Hx Falls: No - GASTROINTESTINAL Other/Comment: Cholelithiasis - GENITOURINARY/GYNECOLOGICAL Hx Genitourinary Disorders: No - PSYCHIATRIC Hx Substance Use: No - SURGICAL HISTORY Hx Surgeries: Yes Hx Vascular Access Device: Yes (port a cath) Other/Comment: "Hodgkin's Lymphoma. Removal of "mass" in my left neck" (as per previous triage) port a cath placed right subclavian - ANESTHESIA Hx Anesthesia: Yes Hx Anesthesia Reactions: No Hx Malignant Hyperthermia: No Meds Allergies/Adverse Reactions: Allergies Allergy/AdvReac Type Severity Reaction Status Date / Time No Known Allergies Allergy Verified 08/09/17 11:24 Physical Exam - Constitutional Appears: No Acute Distress, Chronically Ill - Head Exam Head Exam: ATRAUMATIC, NORMAL INSPECTION - Eye Exam Eye Exam: EOMI, Normal appearance - ENT Exam ENT Exam: Mucous Membranes Moist - Respiratory Exam Respiratory Exam: Clear to Auscultation Bilateral, NORMAL BREATHING PATTERN. absent: Rales, Rhonchi, Wheezes, Stridor - Cardiovascular Exam Cardiovascular Exam: REGULAR RHYTHM, RRR, +S1, +S2 - GI/Abdominal Exam GI & Abdominal Exam: Normal Bowel Sounds, Soft. absent: Tenderness - Extremities Exam Extremities exam: Positive for: normal inspection - Neurological Exam Neurological exam: Alert, Oriented x3 - Psychiatric Exam Psychiatric exam: Normal Affect, Normal Mood - Skin Skin Exam: Dry, Intact, Normal Color, Warm Additional comments: Chemotherapy port on Right upper chest Results - Vital Signs Recent Vital Signs: Last Vital Signs Temp 97.8 F 08/09/17 11:29 Pulse 76 08/09/17 11:29 Resp 16 08/09/17 11:29 BP 104/68 08/09/17 11:29 Pulse Ox 100 08/09/17 13:27 Assessment & Plan - Assessment and Plan (Free Text) Assessment: 1.) Hodgkin lymphoma Patient is admitted for chemotherapy and observation. Patient was recently admitted for post-chemotherapy observation on 07/19/17. Patient receives Etoposide, Carboplatin, Ifosfomide, and Mesna for 24 hours every three weeks. Oncology Consult: Dr. Blackwell --> help appreciated Continue to monitor. 2.) Prophylactic measure SCDs Pepcid 20mg PO daily Regular Diet Case discussed with Dr. Deepti Deras PGY-1 <Wes Tatum - Last Filed: 08/09/17 16:19> Results - Vital Signs Recent Vital Signs: Last Vital Signs Temp 97.8 F 08/09/17 11:29 Pulse 76 08/09/17 11:29 Resp 16 08/09/17 11:29 BP 104/68 08/09/17 11:29 Pulse Ox 100 08/09/17 13:27 Attending/Attestation - Attestation I have personally seen and examined this patient.: Yes I have fully participated in the care of the patient.: Yes I have reviewed all pertinent clinical information: Yes Notes (Text): 08/09/17 16:19 Medical attending: Patient was seen and examined by me, agrees the above note by associate medical director. We saw the patient in the infusion center today. She is getting chemotherapy done when we saw her. She was sitting upright she was not in any acute distress. She was tolerating a meal while undergoing chemotherapy infusion. This is a 26-year-old female with a history of Hodgkin's lymphoma. The patient is very well-known to the hospitalist service. She's been seen by my colleagues in the past and she's been through a tremendous amount of ordeals and I am glad to see that she is doing much better. She explains to us that at one point she weighed less than 88 pounds, she is now up to about 115 pounds. She explains that she is tolerating her diet quite well and that she is also able to ambulate very well without any assistance. She's had several admissions and discharges here in the past couple of months. However the most serious incident occurred in May 07, 2017 of this year where she was in acute hypercapnic respiratory failure and at that time she had a large right pleural effusion. It looks like at that time she was in septic shock. A brief review of the note shows that she was in the intensive care unit for almost 25 days. Afterwards she stayed in the hospital for additional 7 days Thank you very much, Wes Tatum
[2017-08-09 17:28] VITALS: RESP 20
--- NOTE | 2017-08-10 07:49 | CP.PCM.DIS ---
<Elodia Deras - Last Filed: 08/10/17 17:12> Provider - Provider Date of Admission: 08/09/17 12:13 Attending physician: Wes Tatum DO Time Spent in preparation of Discharge (in minutes): 40 Hospital Course - Lab Results Lab Results: Patient is a 26 year old female with a past medical history of Hodgkin's Lymphoma and asthma, who presents to the ED from the infusion center for chemotherapy and post-chemotherapy observation. Patient was originally diagnosed with Hodgkin's Lymphoma two years ago and started chemotherapy. Patient was recently admitted on 07/19/17 for post-chemotherapy observation, on -06/14/17 for neutropenic fever post-chemotherapy, as well as on 05/07/17- for septic shock, respiratory failure, neutropenic fever, tachycardia, and anemia. Patient states she has gained weight about 30 lbs which she states she is happy about. She states she feels well and denies having chest pain, abdominal pain, shortness of breath, loss of appetite, nausea, vomiting, fevers , diarrhea or constipation. She states she never has nausea or vomiting after chemotherapy. She states this is is her 4th chemotherapy session and that she may receive a bone marrow transplant in the future. PMD: [facility] Oncologist: Dr. Blackwell Past Medical History: Hodgkin's Lymphoma, Asthma Surgical History: Chemotherapy port placement 2 years prior Family History: denies Social History: denies tobacco, alcohol, and drug use; lives with her cousin in [place]. Unemployed. Allergies: NKDA Medications: At home, only used albuterol as needed. Hospital Course: Patient was admitted on 08/09/17 for chemotherapy and observation. Patient was sent from the infusion center to the floors to complete 24 hours of chemotherapy and for observation. Patient receives Etoposide, Carboplatin, Ifosfomide for 24 hours every three weeks (on salvage ICE). Patient's oncologist , Dr. Blackwell, was consulted. As per Dr. Blackwell, patient may be discharge once chemotherapy is completed and patient must follow up as outpatient. Patient was seen and examined today at bedside in no acute distress. Patient reports feeling well and has no complaints. Patient denies having chest pain, abdominal pain, nausea, vomiting, fevers, leg pain, and headaches. Patient may leave after completion of chemotherapy. Patient must follow up with their oncologist, Dr. Blackwell, within one week of discharge. Patient should follow up with their PMD at [facility] within one week of discharge. Patient should continue their home medication. If patient has any concerns or symptoms, patient should return to the ED. Discharge Exam - Head Exam Head Exam: ATRAUMATIC, NORMAL INSPECTION - Eye Exam Eye Exam: EOMI, Normal appearance - ENT Exam ENT Exam: Mucous Membranes Moist - Respiratory Exam Respiratory Exam: Clear to PA & Lateral, NORMAL BREATHING PATTERN - Cardiovascular Exam Cardiovascular Exam: REGULAR RHYTHM, RRR, +S1, +S2 - Extremities Exam Extremities exam: normal inspection - Neurological Exam Neurological exam: Alert, Oriented x3 - Psychiatric Exam Psychiatric exam: Normal Affect, Normal Mood - Skin Skin Exam: Normal Color, Warm Additional comments: right chest chemotherapy port Discharge Plan - Follow Up Plan Condition: STABLE Disposition: HOME/ ROUTINE <Wse Tatum - Last Filed: 08/10/17 17:40> Provider - Provider Date of Admission: 08/09/17 12:13 Attending physician: Wes Tatum, DO Attending/Attestation - Attestation I have personally seen and examined this patient.: Yes I have fully participated in the care of the patient.: Yes I have reviewed all pertinent clinical information, including history, physical exam and plan: Yes Notes (Text): 08/10/17 17:40 Medical attending: Patient was seen and examined by me, agrees the above note by certified medical technician assistant. The patient is doing quite well. We saw her in the morning and at that time she was still receiving the chemotherapy. She explained to us that she did well overnight she did not have any fevers or chills, she denied nausea and vomiting , denied abdominal pain. The patient is ambulating well on her own without assistance. Later in the day we discharged her to home This patient looks very well - she's come a long way Thank you very much, Wes Tatum
--- NOTE | 2017-08-10 09:24 | CP.PCM.CON ---
<Dalia Condon DO - Last Filed: 08/10/17 10:30> History of Present Illness - History of Present Illness History of Present Illness: 26 year old female with a history of recurrent hodgkins lymphoma admitted for chemotherapy. Patient was originally diagnosed with Hodgkin's Lymphoma two years ago and started chemotherapy. Patient was recently admitted on 07/19/17 for post-chemotherapy observation, on 05/31/17-06/14/17 for neutropenic fever post -chemotherapy She presented in 04/2017 with bulky lymphadenopathy causing airway compromise requiring vent support and emergent chemotherapy. She is admitted for fourth cycle ICE chemotherapy. Past medical history: Asthma, HD Past Medical History: Hodgkin's Lymphoma, Asthma Past surgical history: Portacath Family history: Denies hematologic and oncologic problems Social history: Denies tobacco, alcohol, and illicit drug use. Allergies: NKA Review of Systems - Constitutional Constitutional: absent: Chills, Fever - EENT Nose/Mouth/Throat: absent: Nasal Congestion - Cardiovascular Cardiovascular: absent: Chest Pain, Dyspnea - Respiratory Respiratory: absent: Cough - Gastrointestinal Gastrointestinal: absent: Abdominal Pain, Vomiting - Genitourinary Genitourinary: absent: Dysuria - Musculoskeletal Musculoskeletal: absent: Stiffness - Integumentary Integumentary: absent: Rash Past Patient History - Infectious Disease Hx of Infectious Diseases: None - Past Medical History & Family History Past Medical History?: Yes - Past Social History Smoking Status: Never Smoked - CARDIAC Hx Cardiac Disorders: No - PULMONARY Hx Asthma: Yes - NEUROLOGICAL Hx Neurological Disorder: No - HEENT Hx HEENT Problems: No - RENAL Hx Chronic Kidney Disease: No - ENDOCRINE/METABOLIC Hx Endocrine Disorders: No - HEMATOLOGICAL/ONCOLOGICAL Hx Anemia: Yes - INTEGUMENTARY Hx Dermatological Problems: No - MUSCULOSKELETAL/RHEUMATOLOGICAL Hx Falls: No - GASTROINTESTINAL Other/Comment: Cholelithiasis - GENITOURINARY/GYNECOLOGICAL Hx Genitourinary Disorders: No - PSYCHIATRIC Hx Substance Use: No - SURGICAL HISTORY Hx Surgeries: Yes Hx Vascular Access Device: Yes (port a cath) Other/Comment: "Hodgkin's Lymphoma. Removal of "mass" in my left neck" (as per previous triage) port a cath placed right subclavian - ANESTHESIA Hx Anesthesia: Yes Hx Anesthesia Reactions: No Hx Malignant Hyperthermia: No Meds Allergies/Adverse Reactions: Allergies Allergy/AdvReac Type Severity Reaction Status Date / Time No Known Allergies Allergy Verified 08/09/17 11:24 - Medications Medications: Current Medications Famotidine (Pepcid) 20 mg PO DAILY [facility] Ifosfamide 7.2 gm/ Mesna 7,200 (mg/ Sodium Chloride) 1,072 mls @ 44.667 mls/hr IV .Q24H ONE Stop: 08/10/17 12:59 Last Admin: 08/09/17 13:29 Dose: 44.667 mls/hr Physical Exam - Constitutional Appears: No Acute Distress, Chronically Ill - Eye Exam Eye Exam: EOMI - ENT Exam ENT Exam: Mucous Membranes Moist - Respiratory Exam Respiratory Exam: NORMAL BREATHING PATTERN Additional comments: right chest chemotherapy port - Cardiovascular Exam Cardiovascular Exam: +S1, +S2 - GI/Abdominal Exam GI & Abdominal Exam: Normal Bowel Sounds, Soft - Extremities Exam Extremities exam: Negative for: pedal edema - Neurological Exam Neurological exam: Alert - Psychiatric Exam Psychiatric exam: Normal Affect - Skin Skin Exam: Warm Results - Vital Signs Recent Vital Signs: Last Vital Signs Temp 98.2 F 08/10/17 08:39 Pulse 76 08/10/17 08:39 Resp 20 08/10/17 08:39 BP 87/52 L 08/10/17 08:39 Pulse Ox 100 08/10/17 08:39 Assessment & Plan - Assessment and Plan (Free Text) Assessment: (1) Hodgkin lymphoma Assessment and Plan: on salvage ICE (Etoposide, Carboplatin, Ifosfomide) okay to D/C after chemotherapy pt to follow up on discharge with Dr. Blackwell Status: Chronic Priority: High (2) Anemia Assessment and Plan: secondary to chemotherapy Plan as per Dr. Blackwell <Scott Blackwell - Last Filed: 08/10/17 15:45> Meds - Medications Medications: Current Medications Famotidine (Pepcid) 20 mg PO DAILY [facility] Last Admin: 08/10/17 14:15 Dose: Not Given Heparin Sodium (Porcine) (Heparin) 5,000 units SC Q8 [facility] Last Admin: 08/10/17 14:16 Dose: Not Given Sodium Chloride (Sodium Chloride 0.9%) 250 mls @ 250 mls/hr IV .Q1H ONE Stop: 08/10/17 17:59 Results - Vital Signs Recent Vital Signs: Last Vital Signs Temp 98.2 F 08/10/17 08:39 Pulse 93 H 08/10/17 15:09 Resp 20 08/10/17 08:39 BP 95/63 L 08/10/17 15:09 Pulse Ox 100 08/10/17 08:39 Assessment & Plan - Assessment and Plan (Free Text) Assessment: Pt seen and examined, agree with residents note. For salvage chemotherapy and for outpatient bone marrow transplant at [place]. Thank you for this interesting consult.
[2017-08-10] MEDS ORDERED: DiphenhydrAMINE 50 mg/ml Inj IVP ONE (11:45)
[2017-08-10] MEDS ORDERED: SODIUM CHLORIDE 0.9% IV ONE (12:00)
[2017-08-10] MEDS ORDERED: DEXAMETHASONE IV ONE (12:00)
[2017-08-10] MEDS ORDERED: ONDANSETRON IV ONE (12:00)
[2017-08-10] MEDS ORDERED: Sodium Chloride 0.9% 250 ML IV ONE (17:00)
[2017-08-10 17:06] VITALS: BP 95/58; PULSE 88; TEMP 97.8; O2SAT 99
== END 2017-08-10 20:05 | disposition home or self-care (01) ==
LOC: C.ER 11:17 → C.9E 12:13 → C.3T 14:17
PROVIDERS: ADMIT Hospitalist; ATTEND Hospitalist
DX: C81.90 Hodgkin lymphoma, unspecified, unspecified site (principal); J45.909 Unspecified asthma, uncomplicated; D64.9 Anemia, unspecified
CPT/HCPCS: 99283; G0378; J1100; J1200; J1642; J2405; J7040; J9181; J9208; J9209

== ENCOUNTER 2017-08-30 11:52 | Observation (INO) | payer OTHER ==
[2017-08-30 11:53] VITALS: BMI 19.6
--- NOTE | 2017-08-30 12:34 | C.PDOC ---
History Of Present Illness 26 year old female presents to the ED after being referred by Dr. Blackwell for admission for continuation of chemotherapy treatment. Patient denies new symptoms, fever. States "I feel the usual." REFERRED DR BLACKWELL FOR ADMISSION FOR CONTINUATION OF CHEMO TX. PT DENIES NEW SX, FEVER. "I FEEL THE USUAL" EXAM NAD NONTOXIC EXAM NEG Time Seen by Provider: 08/30/17 12:32 Chief Complaint (Nursing): Medical Clearance History Per: Patient History/Exam Limitations: no limitations Onset/Duration Of Symptoms: Days Current Symptoms Are (Timing): Still Present Additional History Per: Patient Past Medical History Reviewed: Historical Data, Nursing Documentation, Vital Signs Vital Signs: Last Vital Signs Temp 97.3 F L 08/30/17 11:55 Pulse 76 08/30/17 11:55 Resp 20 08/30/17 11:55 BP 96/61 L 08/30/17 11:55 Pulse Ox 100 08/30/17 14:41 - Medical History PMH: Anemia, Asthma Denies: Chronic Kidney Disease Surgical History: No Surg Hx - [facility] Procedures DRAINAGE OF R PLEURAL CAV WITH DRAIN DEV, PERC APPROACH (05/06/17) EXCISION OF AORTIC LYMPHATIC, PERCUTANEOUS APPROACH, DIAGN (05/06/17) EXCISION OF RIGHT UPPER LOBE BRONCHUS, ENDO, DIAGN (05/06/17) INSERTION OF ENDOTRACHEAL AIRWAY INTO TRACHEA, VIA OPENING (05/06/17) INTRODUCE OTH ANTINEOPLASTIC IN PERIPH VEIN, PERC (06/06/17) RESPIRATORY VENTILATION, GREATER THAN 96 CONSECUTIVE HOURS (05/06/17) TRANSFUSE NONAUT PLATELETS IN PERIPH VEIN, PERC (06/06/17) Family History: States: Unknown Family Hx - Social History Hx Alcohol Use: No Hx Substance Use: No - Immunization History Hx Tetanus Toxoid Vaccination: No Hx Influenza Vaccination: Yes Hx Pneumococcal Vaccination: No Review Of Systems Constitutional: Negative for: Fever, Chills Physical Exam - Physical Exam Appears: Non-toxic, No Acute Distress Skin: Normal Color, Warm, Dry Head: Atraumatic, Normacephalic Eye(s): bilateral: Normal Inspection Oral Mucosa: Moist Neck: Supple Chest: Symmetrical, No Deformity, No Tenderness Cardiovascular: Rhythm Regular, No Murmur Respiratory: Normal Breath Sounds, No Rales, No Rhonchi, No Wheezing Extremity: Normal ROM, Capillary Refill (less than 2 seconds ) Neurological/Psych: Oriented x3, Normal Speech, Normal Cognition Gait: Steady ED Course And Treatment O2 Sat by Pulse Oximetry: 100 (on RA) Pulse Ox Interpretation: Normal Progress - Re-Evaluation Re-evaluation Note: 08/30/17 12:32 NO RESPONSE HOSPITALIST SINCE 1200 PER RN TINO 08/30/17 12:36 D/W DR DE LEON WILL ADMIT 08/30/17 12:37 ADMISSION LABS DONE 08/29, RESULTS REVIEWED. - Data Reviewed Data Reviewed: Lab, Diagnostic imaging, Old records Disposition Counseled Patient/Family Regarding: Diagnosis - Disposition Disposition: HOSPITALIZED Disposition Time: 12:34 Condition: STABLE - POA Present On Arrival: None - Clinical Impression Clinical Impression: Medical assessment, Hodgkin lymphoma - Scribe Statement The provider has reviewed the documentation as recorded by the Scribe (Hui Mcmanus) Provider Attestation: All medical record entries made by the Scribe were at my direction and personally dictated by me. I have reviewed the chart and agree that the record accurately reflects my personal performance of the history, physical exam, medical decision making, and the department course for this patient. I have also personally directed, reviewed, and agree with the discharge instructions and disposition. Decision To Admit - Pt Status Changed To: Hospital Disposition Of: Observation - . Bed Request Type: Regular Admitting Physician: Duncan De Leon Patient Diagnosis: Medical assessment, Hodgkin lymphoma
--- NOTE | 2017-08-30 13:59 | CP.PCM.HP ---
<Gerardo Holder - Last Filed: 08/30/17 17:38> History of Present Illness - History of Present Illness History of Present Illness: PGY-1 H&P for Dr. Richter This is a 26 year old female with PMHx Hodgkin's lymphoma and asthma who presents to the hospital for her monthly chemotherapy regimen. Patient states that she is doing well and has no complaints at this time. Patient receives monthly ICE therapy with her oncologist Dr. Blackwell. Patient states that she has been unable to make an appointment in [place] for evaluation of bone marrow transplant over the phone. She plans to go in person to set it up. Patient denies fever, chills, nausea, vomiting, chest pain, dyspnea, abdominal pain, dysuria. Patient notes that she has gained 4 pounds since her last session. Past Medical History: Hodgkin's Lymphoma, Asthma Surgical History: Chemotherapy port placement 2 years prior Allergies: NKDA Family History: denies Social History: denies tobacco, alcohol, and drug use; lives with her cousin in [place]. Unemployed. Medications: Albuterol inhaler prn PMD: [facility] Oncologist: Dr. Blackwell Present on Admission - Present on Admission Any Indicators Present on Admission: No Review of Systems - Constitutional Constitutional: absent: Chills, Fever - EENT Eyes: absent: Blurred Vision Ears: absent: Decreased Hearing Nose/Mouth/Throat: absent: Nasal Congestion - Cardiovascular Cardiovascular: absent: Chest Pain - Respiratory Respiratory: absent: Dyspnea - Gastrointestinal Gastrointestinal: absent: Abdominal Pain, Constipation, Diarrhea, Nausea, Vomiting - Genitourinary Genitourinary: absent: Dysuria - Musculoskeletal Musculoskeletal: absent: Back Pain - Integumentary Integumentary: absent: Rash - Neurological Neurological: absent: Weakness - Endocrine Endocrine: absent: Fatigue Past Patient History - Infectious Disease Hx of Infectious Diseases: None - Past Medical History & Family History Past Medical History?: Yes - Past Social History Smoking Status: Never Smoked - CARDIAC Hx Cardiac Disorders: No - PULMONARY Hx Asthma: Yes - NEUROLOGICAL Hx Neurological Disorder: No - HEENT Hx HEENT Problems: No - RENAL Hx Chronic Kidney Disease: No - ENDOCRINE/METABOLIC Hx Endocrine Disorders: No - HEMATOLOGICAL/ONCOLOGICAL Hx Anemia: Yes - INTEGUMENTARY Hx Dermatological Problems: No - MUSCULOSKELETAL/RHEUMATOLOGICAL Hx Falls: No - GASTROINTESTINAL Other/Comment: Cholelithiasis - GENITOURINARY/GYNECOLOGICAL Hx Genitourinary Disorders: No - PSYCHIATRIC Hx Substance Use: No - SURGICAL HISTORY Hx Surgeries: Yes Hx Vascular Access Device: Yes (port a cath) Other/Comment: "Hodgkin's Lymphoma. Removal of "mass" in my left neck" (as per previous triage) port a cath placed right subclavian - ANESTHESIA Hx Anesthesia: Yes Hx Anesthesia Reactions: No Hx Malignant Hyperthermia: No Meds Allergies/Adverse Reactions: Allergies Allergy/AdvReac Type Severity Reaction Status Date / Time No Known Allergies Allergy Verified 08/30/17 11:57 Physical Exam - Constitutional Appears: No Acute Distress - Head Exam Head Exam: ATRAUMATIC, NORMOCEPHALIC - Eye Exam Eye Exam: EOMI, PERRL - ENT Exam ENT Exam: Mucous Membranes Moist - Respiratory Exam Additional comments: Decreased breath sounds left lower lung field Coarse breath sounds on the right lung field No wheezes or rhonchi - Cardiovascular Exam Cardiovascular Exam: REGULAR RHYTHM, +S1, +S2 - GI/Abdominal Exam GI & Abdominal Exam: Normal Bowel Sounds, Soft. absent: Distended, Tenderness - Extremities Exam Extremities exam: Positive for: pedal pulses present. Negative for: pedal edema , tenderness - Neurological Exam Neurological exam: Alert, CN II-XII Intact, Oriented x3 - Psychiatric Exam Psychiatric exam: Normal Affect, Normal Mood - Skin Skin Exam: Dry, Intact, Normal Color, Warm Additional comments: Portacath on the right side of the chest is non-erythematous. No obvious sign of infection on the overlying skin. Results - Vital Signs Recent Vital Signs: Last Vital Signs Temp 97.3 F L 08/30/17 11:55 Pulse 76 08/30/17 11:55 Resp 20 08/30/17 11:55 BP 96/61 L 08/30/17 11:55 Pulse Ox 100 08/30/17 12:37 Assessment & Plan - Assessment and Plan (Free Text) Plan: Hodgkin lymphoma Patient is admitted for chemotherapy and observation. Patient receives Etoposide, Carboplatin, Ifosfomide Heme/onc Dr. Blackwell consulted, help appreciated Prophylactic measure Lovenox 40 mg SC daily Protonix 40 mg PO daily Regular Diet Zofran 4 mg IV Q6H prn Marinol 2.5 mg PO BID Albuterol Q6 prn Case DW Dr. Rober Perezed PGY-1 <Miracle Richter V - Last Filed: 08/30/17 21:55> Results - Vital Signs Recent Vital Signs: Last Vital Signs Temp 97.8 F 08/30/17 15:00 Pulse 81 08/30/17 15:00 Resp 20 08/30/17 15:00 BP 98/59 L 08/30/17 15:00 Pulse Ox 98 08/30/17 15:00 Assessment & Plan (1) Hodgkins lymphoma in relapse Status: Acute Comment: (05/18 IR Biopsy): Pathology-->classical Hodgkin's Lymphoma. Heme- oncology (Dr. James Blackwell) on board-->help appreciated. Patient undergoing salvage ICE Chemotherapy today. -Ifosfamide/Mesna. -Etoposide. -Carboplatin. - Dexamethasone. Patient pending evaluation at [place] for bone marrow transplant (2) Prophylactic measure Status: Acute Comment: Lovenox 40mg subqdaily. Zofran 4mg IV Q6H PRN nausea. Protonix 40mg PO daily for GI PPx. Dronabinol 2.5mg PO BID Attending/Attestation - Attestation I have personally seen and examined this patient.: Yes I have fully participated in the care of the patient.: Yes I have reviewed all pertinent clinical information: Yes Notes (Text): Patient seen, examined, and case discussed with day-time resident. Patient is well-known to the hospitalist service. I have personally seen her during her initial two hospitalization at [facility] which required ICU hospitalization and re- diagnoses of her Hodgkin's lymphoma and 2nd hospitalization for neutropenic fever. Patient to go undergo salvage ICE chemotherapy per heme-onc. Will monitor for any adverse side effects. Possible discharge tomorrow.
[2017-08-30] MEDS ORDERED: IFOSFAMIDE IV ONE ×2 (14:00→15:15)
[2017-08-30] MEDS ORDERED: SODIUM CHLORIDE 0.9% IV ONE ×2 (14:00→15:15)
[2017-08-30] MEDS ORDERED: MESNA IV ONE ×2 (14:00→15:15)
[2017-08-30] MEDS: Pantoprazole 40 mg EC Tab PO SCH (17:44)
[2017-08-30] MEDS: Enoxaparin 40 mg Syringe SC SCH (17:44)
[2017-08-31 00:23] VITALS: RESP 20
[2017-08-31 07:09] LABS: BASO % 0.5 % (0.0-2.0); EOS % 0.1 % (0.0-4.0); HEMATOCRIT 23.9 % (34.0-47.0); LYMPH # 0.5 K/uL (1.0-4.3); LYMPH % 18.2 % (20.0-40.0); MEAN CELL VOLUME 99.6 fL (81.0-99.0); MEAN CORPUSCULAR HEMOGLOBIN 35.4 pg (27.0-31.0); MEAN CORPUSCULAR HGB CONC 35.6 g/dL (33.0-37.0); MEAN PLATELET VOLUME 8.1 fL (7.2-11.7); MONO # 0.3 K/uL (0.0-0.8); RED CELL DISTRIBUTION WIDTH 21.2 % (11.5-14.5); WHITE BLOOD COUNT 2.8 K/uL (4.8-10.8)
[2017-08-31 07:38] LABS: ALB/GLOB RATIO 1.2 (1.0-2.1); ALKALINE PHOSPHATASE 52 U/L (38-126); ALT/SGPT 13 U/L (9-52); AST/SGOT 13 U/L (14-36); BILIRUBIN,TOTAL 0.6 mg/dL (0.2-1.3); BLOOD UREA NITROGEN 13 mg/dL (7-17); CALCIUM 8.5 mg/dl (8.6-10.4); CARBON DIOXIDE 28 mmol/L (22-30); CHLORIDE 100 mmol/L (98-107); GFR AFRICAN-AMERICAN > 60; GLUCOSE,RANDOM 85 mg/dL (65-105); MAGNESIUM 1.7 mg/dL (1.6-2.3); PHOSPHOROUS 4.1 mg/dL (2.5-4.5); POTASSIUM 3.4 mmol/L (3.6-5.2); SODIUM 134 mmol/L (132-148); TOTAL PROTEIN 6.5 g/dL (6.3-8.3)
[2017-08-31] MEDS ORDERED: Potassium Chloride 20 mEq ER Tab PO ONE ×2 (09:30→10:45)
[2017-08-31] MEDS: Enoxaparin 40 mg Syringe SC SCH (10:38)
[2017-08-31] MEDS: Pantoprazole 40 mg EC Tab PO SCH (10:38)
--- NOTE | 2017-08-31 11:29 | CP.PCM.DIS ---
<Gerardo Holder - Last Filed: 08/31/17 15:46> Provider - Provider Date of Admission: 08/30/17 12:36 Attending physician: Miracle Richter DO Consults: Heme/onc-Dr. Nathaniel Blackwell Time Spent in preparation of Discharge (in minutes): 35 Diagnosis - Discharge Diagnosis (1) Hodgkins lymphoma in relapse Status: Acute (2) Prophylactic measure Status: Acute Hospital Course - Lab Results Lab Results: Most Recent Lab Values WBC 2.8 K/uL (4.8-10.8) L 08/31/17 07:02 RBC 2.40 Mil/uL (3.80-5.20) L 08/31/17 07:02 Hgb 8.5 g/dL (11.0-16.0) L 08/31/17 07:02 Hct 23.9 % (34.0-47.0) L 08/31/17 07:02 MCV 99.6 fL (81.0-99.0) H 08/31/17 07:02 MCH 35.4 pg (27.0-31.0) H 08/31/17 07:02 MCHC 35.6 g/dL (33.0-37.0) 08/31/17 07:02 RDW 21.2 % (11.5-14.5) H 08/31/17 07:02 Plt Count 113 K/uL (130-400) L D 08/31/17 07:02 MPV 8.1 fL (7.2-11.7) 08/31/17 07:02 Neut % (Auto) 71.2 % (50.0-75.0) 08/31/17 07:02 Lymph % (Auto) 18.2 % (20.0-40.0) L 08/31/17 07:02 [place] % (Auto) 10.0 % (0.0-10.0) 08/31/17 07:02 Eos % (Auto) 0.1 % (0.0-4.0) 08/31/17 07:02 Baso % (Auto) 0.5 % (0.0-2.0) 08/31/17 07:02 Neut # 2.0 K/uL (1.8-7.0) 08/31/17 07:02 Lymph # 0.5 K/uL (1.0-4.3) L 08/31/17 07:02 [place] # 0.3 K/uL (0.0-0.8) 08/31/17 07:02 Eos # 0.0 K/uL (0.0-0.7) 08/31/17 07:02 Baso # 0.0 K/uL (0.0-0.2) 08/31/17 07:02 Sodium 134 mmol/L (132-148) 08/31/17 07:04 Potassium 3.4 mmol/L (3.6-5.2) L 08/31/17 07:04 Chloride 100 mmol/L (98-107) 08/31/17 07:04 Carbon Dioxide 28 mmol/L (22-30) 08/31/17 07:04 Anion Gap 9 (10-20) L 08/31/17 07:04 BUN 13 mg/dL (7-17) 08/31/17 07:04 Creatinine 0.5 mg/dL (0.7-1.2) L 08/31/17 07:04 Est GFR ( Amer) > 60 08/31/17 07:04 Est GFR (Non-Af Amer) > 60 08/31/17 07:04 Random Glucose 85 mg/dL (65-105) 08/31/17 07:04 Uric Acid 2.4 mg/dL (2.2-7.5) 08/31/17 08:33 Calcium 8.5 mg/dl (8.6-10.4) L 08/31/17 07:04 Phosphorus 4.1 mg/dL (2.5-4.5) 08/31/17 07:04 Magnesium 1.7 mg/dL (1.6-2.3) 08/31/17 07:04 Total Bilirubin 0.6 mg/dL (0.2-1.3) 08/31/17 07:04 AST 13 U/L (14-36) L 08/31/17 07:04 ALT 13 U/L (9-52) 08/31/17 07:04 Alkaline Phosphatase 52 U/L (38-126) 08/31/17 07:04 Total Protein 6.5 g/dL (6.3-8.3) 08/31/17 07:04 Albumin 3.5 g/dL (3.5-5.0) 08/31/17 07:04 Globulin 3.0 gm/dL (2.2-3.9) 08/31/17 07:04 Albumin/Globulin Ratio 1.2 (1.0-2.1) 08/31/17 07:04 - Hospital Course Hospital Course: Initial Note: "This is a 26 year old female with PMHx Hodgkin's lymphoma and asthma who presents to the hospital for her monthly chemotherapy regimen. Patient states that she is doing well and has no complaints at this time. Patient receives monthly ICE therapy with her oncologist Dr. Blackwell. Patient states that she has been unable to make an appointment in [place] for evaluation of bone marrow transplant over the phone. She plans to go in person to set it up. Patient denies fever, chills, nausea, vomiting, chest pain, dyspnea, abdominal pain, dysuria. Patient notes that she has gained 4 pounds since her last session." Hospital Course: Patient admitted for 5th session of chemotherapy for Hodgkin's lymphoma. Oncologist Dr. Blackwell was consulted. Patient tolerated ICE therapy well and will be discharged as cleared by Dr. Blackwell. This is a summary of the hospital course. For more information, refer to the medical records. Discharge Exam - Head Exam Head Exam: ATRAUMATIC, NORMOCEPHALIC - Eye Exam Eye Exam: EOMI, PERRL - ENT Exam ENT Exam: Mucous Membranes Moist - Respiratory Exam Additional comments: Decreased breath sounds left lower lung field Coarse breath sounds on the right lung field No wheezes or rhonchi - Cardiovascular Exam Cardiovascular Exam: REGULAR RHYTHM, +S1, +S2 - GI/Abdominal Exam GI & Abdominal Exam: Normal Bowel Sounds, Soft. absent: Distended, Tenderness - Extremities Exam Extremities exam: pedal pulses present - Neurological Exam Neurological exam: Alert, CN II-XII Intact, Oriented x3 - Psychiatric Exam Psychiatric exam: Normal Affect, Normal Mood - Skin Skin Exam: Dry, Intact, Normal Color, Warm Additional comments: Portacath on the right side of the chest with no obvious signs of infection Discharge Plan - Follow Up Plan Condition: STABLE Disposition: HOME/ ROUTINE Additional Instructions: Please follow up with Dr. Blackwell at your next appointment. Please follow up with the [facility] at your next scheduled appointment. Please try to secure your appointment for evaluation at [place]. If there are any new or worsening symptoms, please return to the emergency room. Referrals: [facility] at [facility] [Outside] <Miracle Richter V - Last Filed: 08/31/17 17:13> Provider - Provider Date of Admission: 08/30/17 12:36 Attending physician: Miracle Richter DO Diagnosis - Discharge Diagnosis (1) Hodgkins lymphoma in relapse Status: Acute (2) Prophylactic measure Status: Acute Hospital Course - Lab Results Lab Results: Most Recent Lab Values WBC 2.8 K/uL (4.8-10.8) L 08/31/17 07:02 RBC 2.40 Mil/uL (3.80-5.20) L 08/31/17 07:02 Hgb 8.5 g/dL (11.0-16.0) L 08/31/17 07:02 Hct 23.9 % (34.0-47.0) L 08/31/17 07:02 MCV 99.6 fL (81.0-99.0) H 08/31/17 07:02 MCH 35.4 pg (27.0-31.0) H 08/31/17 07:02 MCHC 35.6 g/dL (33.0-37.0) 08/31/17 07:02 RDW 21.2 % (11.5-14.5) H 08/31/17 07:02 Plt Count 113 K/uL (130-400) L D 08/31/17 07:02 MPV 8.1 fL (7.2-11.7) 08/31/17 07:02 Neut % (Auto) 71.2 % (50.0-75.0) 08/31/17 07:02 Lymph % (Auto) 18.2 % (20.0-40.0) L 08/31/17 07:02 [place] % (Auto) 10.0 % (0.0-10.0) 08/31/17 07:02 Eos % (Auto) 0.1 % (0.0-4.0) 08/31/17 07:02 Baso % (Auto) 0.5 % (0.0-2.0) 08/31/17 07:02 Neut # 2.0 K/uL (1.8-7.0) 08/31/17 07:02 Lymph # 0.5 K/uL (1.0-4.3) L 08/31/17 07:02 [place] # 0.3 K/uL (0.0-0.8) 08/31/17 07:02 Eos # 0.0 K/uL (0.0-0.7) 08/31/17 07:02 Baso # 0.0 K/uL (0.0-0.2) 08/31/17 07:02 Sodium 134 mmol/L (132-148) 08/31/17 07:04 Potassium 3.4 mmol/L (3.6-5.2) L 08/31/17 07:04 Chloride 100 mmol/L (98-107) 08/31/17 07:04 Carbon Dioxide 28 mmol/L (22-30) 08/31/17 07:04 Anion Gap 9 (10-20) L 08/31/17 07:04 BUN 13 mg/dL (7-17) 08/31/17 07:04 Creatinine 0.5 mg/dL (0.7-1.2) L 08/31/17 07:04 Est GFR ( Amer) > 60 08/31/17 07:04 Est GFR (Non-Af Amer) > 60 08/31/17 07:04 Random Glucose 85 mg/dL (65-105) 08/31/17 07:04 Uric Acid 2.4 mg/dL (2.2-7.5) 08/31/17 08:33 Calcium 8.5 mg/dl (8.6-10.4) L 08/31/17 07:04 Phosphorus 4.1 mg/dL (2.5-4.5) 08/31/17 07:04 Magnesium 1.7 mg/dL (1.6-2.3) 08/31/17 07:04 Total Bilirubin 0.6 mg/dL (0.2-1.3) 08/31/17 07:04 AST 13 U/L (14-36) L 08/31/17 07:04 ALT 13 U/L (9-52) 08/31/17 07:04 Alkaline Phosphatase 52 U/L (38-126) 08/31/17 07:04 Total Protein 6.5 g/dL (6.3-8.3) 08/31/17 07:04 Albumin 3.5 g/dL (3.5-5.0) 08/31/17 07:04 Globulin 3.0 gm/dL (2.2-3.9) 08/31/17 07:04 Albumin/Globulin Ratio 1.2 (1.0-2.1) 08/31/17 07:04 Attending/Attestation - Attestation I have personally seen and examined this patient.: Yes I have fully participated in the care of the patient.: Yes I have reviewed all pertinent clinical information, including history, physical exam and plan: Yes Notes (Text): Patient seen, examined, and case discussed with day-time resident. Patient denies acute complaints. Patient tolerated chemotherapy from yesterday. Discussed with heme-onc, patient stable for discharge. Patient to follow-up with heme-onc and for [place] for bone marrow transplant evaluation. Discharge Diagnoses: (1) Hodgkins lymphoma in relapse Status: Chronic Comment: * (05/18 IR Biopsy): Pathology-->classical Hodgkin's Lymphoma. * Heme-oncology (Dr. James Blackwell) on board-->help appreciated. P * Patient underwent and tolerated salvage ICE Chemotherapy. (Ifosfamide/Mesna, Etoposide, Carboplatin, Dexamethasone). * Patient pending evaluation at [place] for bone marrow transplant as outpatient. (2) Prophylactic measure Status: Acute Comment: * Lovenox 40mg subqdaily * Zofran 4mg IV Q6H PRN nausea * Protonix 40mg PO daily for GI PPx * Dronabinol 2.5mg PO BID This is a summary of patient's hospitalization. Please see EMR for further details.
[2017-08-31] MEDS ORDERED: DiphenhydrAMINE 50 mg/ml Inj IVP ONE (16:00)
[2017-08-31] MEDS ORDERED: DEXAMETHASONE IVPB ONE (16:00)
[2017-08-31] MEDS ORDERED: SODIUM CHLORIDE 0.9% IVPB ONE (16:00)
[2017-08-31] MEDS ORDERED: ONDANSETRON IVPB ONE (16:00)
--- NOTE | 2017-08-31 16:58 | CP.PCM.CON ---
History of Present Illness - History of Present Illness History of Present Illness: 26 year old female with a history of recurrent hodgkins lymphoma admitted for salvage chemotherapy. The patient was initially treated for her HD at an outside hospital. She moved to [place] and did not have oncologic follow up. She presented a few months ago here with bulky lymphadenopathy causing airway compromise requiring vent support and emergent chemotherapy. She was treated with ICE regimen and was extubated. She is admitted for ICE chemotherapy. Past medical history: Asthma, HD Past surgical history: Portacath Family history: Denies hematologic and oncologic problems Social history: Denies tobacco, alcohol, and illicit drug use. Allergies: NKA Review of systems: All remaining review or systems including HEENT, cardiovascular, respiratory, gastrointestinal, genitourinary, musculoskeletal, dermatologic, neurologic, and psychiatric are negative unless mentioned in the HPI. Past Patient History - Infectious Disease Hx of Infectious Diseases: None - Past Medical History & Family History Past Medical History?: Yes - Past Social History Smoking Status: Never Smoked - CARDIAC Hx Cardiac Disorders: No - PULMONARY Hx Asthma: Yes - NEUROLOGICAL Hx Neurological Disorder: No - HEENT Hx HEENT Problems: No - RENAL Hx Chronic Kidney Disease: No - ENDOCRINE/METABOLIC Hx Endocrine Disorders: No - HEMATOLOGICAL/ONCOLOGICAL Hx Anemia: Yes - INTEGUMENTARY Hx Dermatological Problems: No - MUSCULOSKELETAL/RHEUMATOLOGICAL Hx Falls: No - GASTROINTESTINAL Other/Comment: Cholelithiasis - GENITOURINARY/GYNECOLOGICAL Hx Genitourinary Disorders: No - PSYCHIATRIC Hx Substance Use: No - SURGICAL HISTORY Hx Surgeries: Yes Hx Vascular Access Device: Yes (port a cath) Other/Comment: "Hodgkin's Lymphoma. Removal of "mass" in my left neck" (as per previous triage) port a cath placed right subclavian - ANESTHESIA Hx Anesthesia: Yes Hx Anesthesia Reactions: No Hx Malignant Hyperthermia: No Meds Allergies/Adverse Reactions: Allergies Allergy/AdvReac Type Severity Reaction Status Date / Time No Known Allergies Allergy Verified 08/30/17 11:57 - Medications Medications: Current Medications Dronabinol (Marinol) 2.5 mg PO BID [facility] Last Admin: 08/31/17 10:38 Dose: 2.5 mg Enoxaparin Sodium (Lovenox) 40 mg SC DAILY [facility] Last Admin: 08/31/17 10:38 Dose: 40 mg Etoposide 150 mg/ Sodium (Chloride) 507.5 mls @ 507.5 mls/hr IV .Q1H ONE Stop: 08/31/17 17:29 Ondansetron HCl (Zofran Inj) 4 mg IVP Q6H PRN PRN Reason: Nausea/Vomiting Pantoprazole Sodium (Protonix Ec Tab) 40 mg PO DAILY [facility] Last Admin: 08/31/17 10:38 Dose: 40 mg Physical Exam - Head Exam Head Exam: ATRAUMATIC - Eye Exam Eye Exam: Normal appearance - ENT Exam ENT Exam: Mucous Membranes Dry - Respiratory Exam Respiratory Exam: NORMAL BREATHING PATTERN - Cardiovascular Exam Cardiovascular Exam: +S1, +S2 - GI/Abdominal Exam GI & Abdominal Exam: Normal Bowel Sounds - Extremities Exam Extremities exam: Positive for: normal inspection - Neurological Exam Neurological exam: Oriented x3 - Psychiatric Exam Psychiatric exam: Normal Affect, Normal Mood - Skin Skin Exam: Warm Results - Vital Signs Recent Vital Signs: Last Vital Signs Temp 98.3 F 08/31/17 00:00 Pulse 86 08/31/17 00:00 Resp 20 08/31/17 00:00 BP 98/57 L 08/31/17 00:00 Pulse Ox 100 08/31/17 00:00 - Labs Result Diagrams: 08/31/17 07:02 08/31/17 07:04 Labs: Laboratory Results - last 24 hr 08/31/17 08/31/17 08/31/17 07:02 07:04 08:33 WBC 2.8 L RBC 2.40 L Hgb 8.5 L Hct 23.9 L MCV 99.6 H MCH 35.4 H MCHC 35.6 RDW 21.2 H Plt Count 113 L D MPV 8.1 Neut % (Auto) 71.2 Lymph % (Auto) 18.2 L [place] % (Auto) 10.0 Eos % (Auto) 0.1 Baso % (Auto) 0.5 Neut # 2.0 Lymph # 0.5 L [place] # 0.3 Eos # 0.0 Baso # 0.0 Sodium 134 Potassium 3.4 L Chloride 100 Carbon Dioxide 28 Anion Gap 9 L BUN 13 Creatinine 0.5 L Est GFR ( Amer) > 60 Est GFR (Non-Af Amer) > 60 Random Glucose 85 Uric Acid 2.4 Calcium 8.5 L Phosphorus 4.1 Magnesium 1.7 Total Bilirubin 0.6 AST 13 L ALT 13 Alkaline Phosphatase 52 Total Protein 6.5 Albumin 3.5 Globulin 3.0 Albumin/Globulin Ratio 1.2 Assessment & Plan (1) Hodgkins lymphoma in relapse Assessment and Plan: on salvage chemotherapy outpatient bone marrow transplant evaluation Status: Acute (2) Pancytopenia Assessment and Plan: secondary to chemotherapy Thank you for this interesting consult. Status: Acute
[2017-08-31 17:08] VITALS: BP 95/59; PULSE 78; TEMP 97; O2SAT 96
== END 2017-08-31 19:40 | disposition home or self-care (01) ==
LOC: C.ER 11:52 → C.9E 12:36 → C.3T 13:36
PROVIDERS: ADMIT Hospitalist; ATTEND Hospitalist
DX: C81.90 Hodgkin lymphoma, unspecified, unspecified site (principal); D61.818 Other pancytopenia; J45.909 Unspecified asthma, uncomplicated
CPT/HCPCS: 36415; 80053; 83735; 84100; 84550; 85025; 99282; G0378; J1100; J1200; J1642; J1650; J2405; J7040; J9181; J9208; J9209; Q0167

== ENCOUNTER 2017-09-04 10:33 | Emergency (ER) | payer OTHER ==
[2017-09-04 10:33] VITALS: BMI 19.6
== END 2017-09-04 11:45 | disposition left against medical advice (07) ==
LOC: C.ER 10:33
DX: Z02.89 Encounter for other administrative examinations (principal)

== ENCOUNTER 2017-09-20 11:58 | Observation (INO) | payer OTHER ==
[2017-09-20 11:59] VITALS: BMI 19.3
[2017-09-20] MEDS ORDERED: Sodium Chloride 0.9% 1,000 ML IV ONE (13:24)
--- NOTE | 2017-09-20 13:30 | C.PDOC ---
History Of Present Illness 26 y/o female with history of Lymphoma presents to ED sent for admission to complete chemo therapy. Patient is sent to ED for IV fluids while compelting chemo therapy regularly. Patient denies any other complaints at this time. Time Seen by Provider: 09/20/17 12:48 Chief Complaint (Nursing): Medical Clearance History Per: Patient History/Exam Limitations: no limitations Onset/Duration Of Symptoms: Days Current Symptoms Are (Timing): Still Present Past Medical History Reviewed: Historical Data, Nursing Documentation, Vital Signs Vital Signs: Last Vital Signs Temp 98.3 F 09/20/17 12:30 Pulse 71 09/20/17 12:30 Resp 18 09/20/17 12:30 BP 96/61 L 09/20/17 12:30 Pulse Ox 99 09/20/17 13:31 - Medical History PMH: Anemia, Asthma Surgical History: No Surg Hx - [facility] Procedures DRAINAGE OF R PLEURAL CAV WITH DRAIN DEV, PERC APPROACH (05/06/17) EXCISION OF AORTIC LYMPHATIC, PERCUTANEOUS APPROACH, DIAGN (05/06/17) EXCISION OF RIGHT UPPER LOBE BRONCHUS, ENDO, DIAGN (05/06/17) INSERTION OF ENDOTRACHEAL AIRWAY INTO TRACHEA, VIA OPENING (05/06/17) INTRODUCE OTH ANTINEOPLASTIC IN PERIPH VEIN, PERC (06/06/17) RESPIRATORY VENTILATION, GREATER THAN 96 CONSECUTIVE HOURS (05/06/17) TRANSFUSE NONAUT PLATELETS IN PERIPH VEIN, PERC (06/06/17) Family History: States: No Known Family Hx - Social History Hx Alcohol Use: No Hx Substance Use: No - Immunization History Hx Tetanus Toxoid Vaccination: No Hx Influenza Vaccination: Yes Hx Pneumococcal Vaccination: No Review Of Systems Constitutional: Negative for: Fever, Chills Cardiovascular: Negative for: Chest Pain Respiratory: Negative for: Shortness of Breath Gastrointestinal: Negative for: Nausea, Vomiting Skin: Negative for: Rash Neurological: Negative for: Weakness, Numbness Physical Exam - Physical Exam Appears: Non-toxic, No Acute Distress Skin: Warm, Dry, No Rash Head: Atraumatic, Normacephalic Oral Mucosa: Moist Neck: Normal ROM, Supple Chest: Other (port to right upper chest) Cardiovascular: Rhythm Regular Respiratory: Normal Breath Sounds, No Rales, No Rhonchi, No Wheezing Gastrointestinal/Abdominal: Soft, No Tenderness, No Guarding, No Rebound Back: No CVA Tenderness Extremity: Normal ROM, No Pedal Edema Neurological/Psych: Oriented x3 ED Course And Treatment O2 Sat by Pulse Oximetry: 99 (RA) Pulse Ox Interpretation: Normal Progress Note: Patient sent to ED for fluids replacement due to ongoing chemotherapy for lymphoma. Patient has no complaints and in no distress Reassessment Condition: Unchanged - Physician Consult Information Physician Contacted: Bharat Mcmanus Outcome Of Conversation: admit Disposition Discussed With Dr.: Bharat Mcmanus Doctor Will See Patient In The: Hospital - Disposition Disposition: HOSPITALIZED Disposition Time: 14:30 Condition: STABLE - POA Present On Arrival: None - Clinical Impression Clinical Impression: Lymphoma - PA / SOFTWARE DATABASE ARCHITECT / Resident Statement MD/DO has reviewed & agrees with the documentation as recorded. - Scribe Statement The provider has reviewed the documentation as recorded by the Scribeddy Schmitz All medical record entries made by the Eveliaibeddy were at my direction and personally dictated by me. I have reviewed the chart and agree that the record accurately reflects my personal performance of the history, physical exam, medical decision making, and the department course for this patient. I have also personally directed, reviewed, and agree with the discharge instructions and disposition.
--- NOTE | 2017-09-20 13:50 | CP.PCM.HP ---
<Jose Juan Dsouza - Last Filed: 09/20/17 14:36> History of Present Illness - History of Present Illness History of Present Illness: CC: post chemo HPI: Patient is a 26 year old female with Hodgkin's lymphoma is here for post chemo observation admission. Patient has no new complaints of fever, chills, nausea, vomiting, cough, shortness of breath, chest pain, diarrhea, numbness, tingling, rash, joint pain, or depression. This is her fifth round of chemo therapy that she has received. She received chemo yesterday and today and is seen as outpatient by Dr. Blackwell. PMH see above PSH: right port cath Family History: denies Social History: denies tobacco, alcohol, and drug use; lives with her cousin in [place]. Unemployed. Medications: Albuterol inhaler prn Present on Admission - Present on Admission Any Indicators Present on Admission: No History of DVT/PE: No History of Uncontrolled Diabetes: No Urinary Catheter: No Decubitus Ulcer Present: No History Surgical Site Infection Following: None Review of Systems - Review of Systems All systems: reviewed and no additional remarkable complaints except - Constitutional Constitutional: absent: Anorexia, Chills, Fever - EENT Eyes: absent: Change in Vision - Cardiovascular Cardiovascular: absent: Chest Pain, Lightheadedness, Orthopnea, Palpitations - Respiratory Respiratory: absent: Cough, Dyspnea, Hemoptysis - Gastrointestinal Gastrointestinal: absent: Abdominal Pain, Constipation, Diarrhea, Nausea, Vomiting - Genitourinary Genitourinary: absent: Dysuria - Musculoskeletal Musculoskeletal: absent: Numbness, Tingling - Integumentary Integumentary: absent: Wounds - Neurological Neurological: absent: Weakness - Psychiatric Psychiatric: absent: Paranoia - Endocrine Endocrine: absent: Fatigue, Palpitations - Hematologic/Lymphatic Hematologic: absent: Other Past Patient History - Infectious Disease Hx of Infectious Diseases: None - Past Medical History & Family History Past Medical History?: Yes - Past Social History Smoking Status: Never Smoked - CARDIAC Hx Cardiac Disorders: No - PULMONARY Hx Asthma: Yes - NEUROLOGICAL Hx Neurological Disorder: No - HEENT Hx HEENT Problems: No - ENDOCRINE/METABOLIC Hx Endocrine Disorders: No - HEMATOLOGICAL/ONCOLOGICAL Hx Anemia: Yes - INTEGUMENTARY Hx Dermatological Problems: No - MUSCULOSKELETAL/RHEUMATOLOGICAL Hx Falls: No - GASTROINTESTINAL Other/Comment: Cholelithiasis - GENITOURINARY/GYNECOLOGICAL Hx Genitourinary Disorders: No - PSYCHIATRIC Hx Substance Use: No - SURGICAL HISTORY Hx Surgeries: Yes Hx Vascular Access Device: Yes (port a cath) Other/Comment: "Hodgkin's Lymphoma. Removal of "mass" in my left neck" (as per previous triage) port a cath placed right subclavian - ANESTHESIA Hx Anesthesia: Yes Hx Anesthesia Reactions: No Hx Malignant Hyperthermia: No Meds Allergies/Adverse Reactions: Allergies Allergy/AdvReac Type Severity Reaction Status Date / Time No Known Allergies Allergy Verified 09/20/17 12:33 Physical Exam - Constitutional Appears: Non-toxic, No Acute Distress - Head Exam Head Exam: NORMAL INSPECTION - Eye Exam Eye Exam: Normal appearance, PERRL. absent: Scleral icterus Pupil Exam: NORMAL ACCOMODATION - ENT Exam ENT Exam: Normal Exam - Neck Exam Neck exam: Positive for: Normal Inspection - Respiratory Exam Respiratory Exam: Clear to Auscultation Bilateral. absent: Rales, Rhonchi, Wheezes Additional comments: right port - Cardiovascular Exam Cardiovascular Exam: REGULAR RHYTHM, RRR, +S1, +S2. absent: Gallop, Rubs - GI/Abdominal Exam GI & Abdominal Exam: Normal Bowel Sounds, Soft. absent: Guarding, Rebound, Tenderness Results - Vital Signs Recent Vital Signs: Last Vital Signs Temp 98.3 F 09/20/17 12:30 Pulse 71 09/20/17 12:30 Resp 18 09/20/17 12:30 BP 96/61 L 09/20/17 12:30 Pulse Ox 99 09/20/17 13:31 Assessment & Plan (1) Hodgkin lymphoma Assessment and Plan: patient admitted to regular/obs floor. Patient is here for 5th round of chemo, she is here for observation and IV fluids. NS at 125 cc/hr cbc and bmp today and tomorrow. drabinol 2.5 mg bid. Zofran prn Status: Acute (2) Prophylactic measure Assessment and Plan: Protonix 40mg Lovenox 40mg sc SCDs Status: Acute <Bharat Mcmanus - Last Filed: 09/21/17 20:07> Results - Vital Signs Recent Vital Signs: Last Vital Signs Temp 98.6 F 09/21/17 17:12 Pulse 104 H 09/21/17 17:12 Resp 0 L 09/21/17 17:12 BP 94/55 L 01/11/18 17:12 Pulse Ox 98 09/21/17 15:15 - Labs Result Diagrams: 09/21/17 10:50 09/21/17 10:50 Labs: Laboratory Results - last 24 hr 09/21/17 09/21/17 09/21/17 10:50 10:50 10:50 WBC 3.6 L RBC 2.04 L Hgb 6.9 L Hct 21.0 L MCV 102.5 H D MCH 33.7 H MCHC 32.9 L RDW 18.2 H Plt Count 156 MPV 8.3 Neut % (Auto) 78.0 H Lymph % (Auto) 11.5 L [place] % (Auto) 9.8 Eos % (Auto) 0.1 Baso % (Auto) 0.6 Neut # 2.8 Lymph # 0.4 L [place] # 0.4 Eos # 0.0 Baso # 0.0 Sodium 133 Potassium 3.1 L Chloride 100 Carbon Dioxide 25 Anion Gap 11 BUN 6 L Creatinine 0.4 L Est GFR ( Amer) > 60 Est GFR (Non-Af Amer) > 60 Random Glucose 78 Calcium 7.8 L Blood Type AB POSITIVE Antibody Screen Negative Attending/Attestation - Attestation I have personally seen and examined this patient.: Yes I have fully participated in the care of the patient.: Yes I have reviewed all pertinent clinical information: Yes Notes (Text): 09/21/17 20:01 Patient was seen and examined shortly after resident in the Infusion [facility] on [address] on 09/20/17 History, physical, assessment and plan, and orders were thoroughly gone over with the resident. Bharat Mcmanus D.O.
[2017-09-20] MEDS ORDERED: Sodium Chloride 0.9% 1,000 ML ONE (13:51)
[2017-09-20] MEDS ORDERED: IFOSFAMIDE IV ONE (14:00)
[2017-09-20] MEDS ORDERED: SODIUM CHLORIDE 0.9% IV ONE (14:00)
[2017-09-20] MEDS ORDERED: MESNA IV ONE (14:00)
[2017-09-20] MEDS: Enoxaparin 40 mg Syringe SC SCH (17:44)
[2017-09-20] MEDS: Pantoprazole 40 mg EC Tab PO SCH (17:44)
[2017-09-20] MEDS: Sodium Chloride 0.9% 1,000 ML IV SCH ×2 (17:51→22:04)
[2017-09-20] MEDS ORDERED: Pneumococcal 23-Valent Vaccine IM ONE (22:52)
[2017-09-20] MEDS ORDERED: Influenza Vaccine 60 mcg/0.5 mL SYR (4YR UP) IM ONE (22:52)
--- NOTE | 2017-09-21 09:15 | CP.PCM.DIS ---
Provider - Provider Date of Admission: 09/20/17 13:25 Attending physician: Bharat Mcmanus MD Consults: Heme/Onc: Rishi Time Spent in preparation of Discharge (in minutes): 31 Hospital Course - Hospital Course Hospital Course: Patient is a 26 year old female with Hodgkin's lymphoma is here for post chemo observation admission. Patient has no new complaints of fever, chills, nausea, vomiting, cough, shortness of breath, chest pain, diarrhea, numbness, tingling, rash, joint pain, or depression. This is her fifth round of chemo therapy that she has received. She received chemo yesterday and today and is seen as outpatient by Dr. Blackwell. Patient was admitted and started on IV fluids. Patient also continued her chemotherapy. Dr Blackwell was on consult. Her hgb was 7.7 on 09/19/17. Patient was transfused two units of PRBCs. Post transfusion Hgb was stable at 10.0. For hypokalemia, potassium was repleted. During admission patient was complaining of cough. Prescription was given for phenergan. On day of discharge, patient was doing well. Offers no complaints. Denies headaches, dizziness, cp, palpitations, sob, abdominal, N/V, urinary symptoms, changes in bowel habits. Patient medically stable and clear for discharge. Patient to F/U with Dr Blackwell outpatient. Discharge Exam - Additional Findings Additional findings: - Additional Findings Additional findings: - Constitutional Appears: Non-toxic, No Acute Distress - Head Exam Head Exam: NORMAL INSPECTION - Eye Exam Eye Exam: Normal appearance, PERRL. absent: Scleral icterus Pupil Exam: NORMAL ACCOMODATION - ENT Exam ENT Exam: Normal Exam - Neck Exam Neck exam: Positive for: Normal Inspection - Respiratory Exam Respiratory Exam: Clear to Auscultation Bilateral. absent: Rales, Rhonchi, Wheezes Additional comments: right port - Cardiovascular Exam Cardiovascular Exam: REGULAR RHYTHM, RRR, +S1, +S2. absent: Gallop, Rubs - GI/Abdominal Exam GI & Abdominal Exam: Normal Bowel Sounds, Soft. absent: Guarding, Rebound, Tenderness Discharge Plan - Discharge Medications Prescriptions: Promethazine DM [Phenergan DM Syrup] 5 ml PO Q6H PRN #250 ml PRN Reason: Cough - Follow Up Plan Condition: STABLE Disposition: HOME/ ROUTINE Additional Instructions: 1. You started that you had enough of Dronabinol 2.5mg at home. Please continue this 2 times a day by mouth 2. Follow up with [facility] on 09/1517 as scheduled for your Granix injections and based up subsequent blood work you will be scheduled for your next chemotherapy treatment 3. Follow up at [facility] Floor B Monday09/29/17 at 11:00 am 4. Please take care
[2017-09-21] MEDS: Pantoprazole 40 mg EC Tab PO SCH (09:49)
[2017-09-21] MEDS: Enoxaparin 40 mg Syringe SC SCH (09:49)
[2017-09-21 11:15] LABS: BASO % 0.6 % (0.0-2.0); EOS % 0.1 % (0.0-4.0); HEMOGLOBIN 6.9 g/dL (11.0-16.0); LYMPH # 0.4 K/uL (1.0-4.3); LYMPH % 11.5 % (20.0-40.0); MEAN CORPUSCULAR HEMOGLOBIN 33.7 pg (27.0-31.0); MEAN CORPUSCULAR HGB CONC 32.9 g/dL (33.0-37.0); MEAN PLATELET VOLUME 8.3 fL (7.2-11.7); MONO # 0.4 K/uL (0.0-0.8); MONO % 9.8 % (0.0-10.0); NEUT # 2.8 K/uL (1.8-7.0); RBC 2.04 Mil/uL (3.80-5.20); RED CELL DISTRIBUTION WIDTH 18.2 % (11.5-14.5); WHITE BLOOD COUNT 3.6 K/uL (4.8-10.8)
[2017-09-21 11:19] LABS: MEAN CELL VOLUME 102.5 fL (81.0-99.0)
[2017-09-21 12:08] LABS: BLOOD UREA NITROGEN 6 mg/dL (7-17); CALCIUM 7.8 mg/dl (8.6-10.4); GFR AFRICAN-AMERICAN > 60; GFR NON-AFRICAN AMERICAN > 60
[2017-09-21] MEDS ORDERED: DiphenhydrAMINE 50 mg/ml Inj IVP ONE (14:00)
[2017-09-21] MEDS ORDERED: DEXAMETHASONE IVPB ONE (14:00)
[2017-09-21] MEDS ORDERED: SODIUM CHLORIDE 0.9% IVPB ONE (14:00)
[2017-09-21] MEDS ORDERED: ONDANSETRON IVPB ONE (14:00)
[2017-09-21] MEDS: Sodium Chloride 0.9% 1,000 ML IV SCH ×2 (14:26→23:00)
[2017-09-21 15:56] VITALS: O2SAT 98
--- NOTE | 2017-09-21 16:48 | CP.PCM.PN ---
<Makenzie Giraldo - Last Filed: 09/21/17 18:29> Subjective - Date & Time of Evaluation Date of Evaluation: 09/21/17 Time of Evaluation: 16:47 - Subjective Subjective: Medicine Progress Note: Hospitalist Service Patient seen and examined at bedside. Per nursing no acute events overnight. Patient is doing well, having a mild cough. Offers no other complaints. Denies headaches, dizziness, cp, palpitations, sob, abdominal pain, urinary symptoms. Objective - Vital Signs/Intake and Output Vital Signs (last 24 hours): Temp Pulse Resp BP Pulse Ox 98.6 F 104 H 20 94/55 L 98 09/21/17 15:15 09/21/17 15:15 09/21/17 15:15 09/21/17 15:15 09/21/17 15:15 Intake and Output: 09/21/17 09/21/17 06:59 18:59 Intake Total 2959.8 1865.6 Output Total 800 Balance 2159.8 1865.6 - Medications Medications: Current Medications Acetaminophen (Tylenol 325mg Tab) 650 mg PO ONCE PRN PRN Reason: Other Diphenhydramine HCl (Benadryl) 25 mg PO ONCE PRN PRN Reason: FIRST PRBC TRANSFUSION Dronabinol (Marinol) 2.5 mg PO BID REPLACED BY [facility] Last Admin: 09/21/17 09:49 Dose: 2.5 mg Enoxaparin Sodium (Lovenox) 40 mg SC DAILY REPLACED BY [facility] Last Admin: 09/21/17 09:49 Dose: 40 mg Sodium Chloride (Sodium Chloride 0.9%) 1,000 mls @ 125 mls/hr IV .Q8H REPLACED BY [facility] Last Admin: 09/21/17 14:26 Dose: 125 mls/hr Ondansetron HCl (Zofran Inj) 4 mg IVP Q6 PRN PRN Reason: Nausea/Vomiting Pantoprazole Sodium (Protonix Ec Tab) 40 mg PO DAILY REPLACED BY [facility] Last Admin: 09/21/17 09:49 Dose: 40 mg - Labs Labs: 09/21/17 10:50 09/21/17 10:50 - Additional Findings Additional findings: - Constitutional Appears: Non-toxic, No Acute Distress - Head Exam Head Exam: NORMAL INSPECTION - Eye Exam Eye Exam: Normal appearance, PERRL. absent: Scleral icterus Pupil Exam: NORMAL ACCOMODATION - ENT Exam ENT Exam: Normal Exam - Neck Exam Neck exam: Positive for: Normal Inspection - Respiratory Exam Respiratory Exam: Clear to Auscultation Bilateral. absent: Rales, Rhonchi, Wheezes Additional comments: right port - Cardiovascular Exam Cardiovascular Exam: REGULAR RHYTHM, RRR, +S1, +S2. absent: Gallop, Rubs - GI/Abdominal Exam GI & Abdominal Exam: Normal Bowel Sounds, Soft. absent: Guarding, Rebound, Tenderness Assessment and Plan - Assessment and Plan (Free Text) Assessment: (1) Hodgkin lymphoma Assessment and Plan: -Stable, afebrile -Patient currently receiving chemotherapy -NS at 125 cc/hr -Drabinol 2.5 mg bid. -Zofran prn Status: Acute (2) Anemia Assessment and Plan: -Hgb on 09/19 was 7.7, not symptomatic -Dr Blackwell on consult, help appreciated -Wants patient to get 2 units of PRBCs after round of chemotherapy -Will follow up post transfusion CBC (3) Hypokalemia Assessment and Plan: -Potassium 3.1 today -Repleted with KCl 40 meq x 2 (4) Prophylactic measure Assessment and Plan: -Protonix 40mg -Lovenox 40mg sc -SCDs <Bharat Mcmanus - Last Filed: 09/21/17 20:09> Objective - Vital Signs/Intake and Output Vital Signs (last 24 hours): Temp Pulse Resp BP Pulse Ox 98.6 F 104 H 0 L 94/55 L 98 09/21/17 17:12 09/21/17 17:12 09/21/17 17:12 09/21/17 17:12 09/21/17 15:15 Intake and Output: 09/21/17 09/22/17 18:59 06:59 Intake Total 1865.6 Balance 1865.6 - Medications Medications: Current Medications Acetaminophen (Tylenol 325mg Tab) 650 mg PO ONCE PRN PRN Reason: Other Diphenhydramine HCl (Benadryl) 25 mg PO ONCE PRN PRN Reason: FIRST PRBC TRANSFUSION Dronabinol (Marinol) 2.5 mg PO BID REPLACED BY [facility] Last Admin: 09/21/17 18:18 Dose: 2.5 mg Enoxaparin Sodium (Lovenox) 40 mg SC DAILY REPLACED BY [facility] Last Admin: 09/21/17 09:49 Dose: 40 mg Sodium Chloride (Sodium Chloride 0.9%) 1,000 mls @ 125 mls/hr IV .Q8H REPLACED BY [facility] Last Admin: 09/21/17 14:26 Dose: 125 mls/hr Ondansetron HCl (Zofran Inj) 4 mg IVP Q6 PRN PRN Reason: Nausea/Vomiting Pantoprazole Sodium (Protonix Ec Tab) 40 mg PO DAILY [facility] Last Admin: 09/21/17 09:49 Dose: 40 mg Potassium Chloride (K-Dur 20 Meq Er Tab) 40 meq PO Q4H [facility] Stop: 09/21/17 21:01 Last Admin: 09/21/17 17:30 Dose: 40 meq - Labs Labs: 09/21/17 10:50 09/21/17 10:50 Attending/Attestation - Attestation I have personally seen and examined this patient.: Yes I have fully participated in the care of the patient.: Yes I have reviewed all pertinent clinical information, including history, physical exam and plan: Yes Notes (Text): 09/21/17 20:07 Patient was seen and examined shortly after resident. Exam, assessment and plan were gone over with the resident. Will likely discharge on morning 09/22/17 as long as HgB/Hct are stable. She will need to follow up with Infusion Center on Monday09/25/17 for Granix injections and based upon lab work, will resume next round of Chemotherapy. She already has follow up with [facility] on Monday. Bharat Mcmanus D.O.
[2017-09-21] MEDS: Potassium Chloride 20 mEq ER Tab PO SCH ×2 (17:30→21:31)
[2017-09-21 20:14] VITALS: RESP 20
[2017-09-22] MEDS: Sodium Chloride 0.9% 1,000 ML IV SCH ×3 (00:40→09:26)
[2017-09-22 01:45] VITALS: BP 98/60; PULSE 93; TEMP 98.2
[2017-09-22 07:26] LABS: BASO % 0.3 % (0.0-2.0); EOS % 0.1 % (0.0-4.0); LYMPH # 0.4 K/uL (1.0-4.3); LYMPH % 9.2 % (20.0-40.0); MEAN CORPUSCULAR HEMOGLOBIN 32.2 pg (27.0-31.0); MEAN PLATELET VOLUME 8.3 fL (7.2-11.7); MONO # 0.2 K/uL (0.0-0.8); MONO % 4.5 % (0.0-10.0); NEUT # 4.2 K/uL (1.8-7.0); NEUT % 85.9 % (50.0-75.0); PLATELET COUNT 200 K/uL (130-400); RBC 3.11 Mil/uL (3.80-5.20); WHITE BLOOD COUNT 4.8 K/uL (4.8-10.8)
[2017-09-22 07:31] LABS: MEAN CELL VOLUME 94.8 fL (81.0-99.0)
[2017-09-22 08:19] LABS: BLOOD UREA NITROGEN 12 mg/dL (7-17); CALCIUM 8.3 mg/dl (8.6-10.4); GFR AFRICAN-AMERICAN > 60; GFR NON-AFRICAN AMERICAN > 60
[2017-09-22] MEDS: Pantoprazole 40 mg EC Tab PO SCH (09:27)
[2017-09-22 10:54] LABS: ANISOCYTOSIS MODERATE; BANDS 2 % (0-2); LYMPHOCYTE 9 % (20-40); MONOCYTE 4 % (0-10); NEUTROPHIL 85 % (50-75); PLATELET ESTIMATE NORMAL (NORMAL); TOTAL CELLS COUNTED 100
== END 2017-09-22 13:03 | disposition home or self-care (01) ==
LOC: C.ER 11:58 → C.9E 13:25 → C.3T 16:53
PROVIDERS: ADMIT Family Medicine; ATTEND Family Medicine
DX: C81.90 Hodgkin lymphoma, unspecified, unspecified site (principal)
CPT/HCPCS: 36415; 36430; 80048; 85025; 86850; 86900; 86920; 96367; 96375; 96413; 96417; 99281; G0378; J1100; J1200; J1642; J1650; J2405; J7040; J9181; J9208; J9209; P9051; Q0167